=== PATIENT | male | born 1985 | race Caucasian/White ===

== ENCOUNTER → 2019-10-17 | Outpatient (CLI) | payer MEDICAID ==
--- NOTE | 2019-10-17 14:10 | XR ---
EXAMINATION TYPE: XR ankle complete RT DATE OF EXAM: 10/17/2019 COMPARISON: NONE HISTORY: 34 year-old male right ankle injury, swelling, pain TECHNIQUE: 3 views FINDINGS: Os trigonum. Lateral and anterior soft tissue swelling. Subtalar joint align. Small delineation to th e Achilles tendon. No acute fracture, subluxation, or dislocation. Talar dome is intact. IMPRESSION: Lateral and anterior soft tissue swelling. No underlying acute osseous abnormality seen. Consider spr ains of the lateral ligamentous complex.
== END | disposition home or self-care (01) ==
LOC: RADXRYALE 13:47
PROVIDERS: ATTEND Physician Assistant Medical
DX: M79.89 Other specified soft tissue disorders (principal)

== ENCOUNTER 2021-08-15 15:09 | Inpatient (IN) | payer MEDICAID ==
[2021-08-15] MEDS ORDERED: IBUPROFEN 800 MG TAB PO STA (15:27)
[2021-08-15] MEDS ORDERED: ALBUTEROL HFA INHALER INHALATION PRN (16:20)
[2021-08-15 17:02] LABS: Basophils % (A) 0 %; Eosinophils % (A) 0 %; HCT 48.3 % (39.0-53.0); HGB 16.7 gm/dL (13.0-17.5); Lymphocytes # (A) 0.3 k/uL (1.0-4.8); Lymphocytes % (A) 5 %; MCH 31.1 pg (25.0-35.0); MCHC 34.5 g/dL (31.0-37.0); Mean Platelet Volume 7.2; Monocytes # (A) 0.2 k/uL (0-1.0); Monocytes % (A) 3 %; Neutrophils # (A) 5.5 k/uL (1.3-7.7); Neutrophils % (A) 91 %; Platelet Count 179 k/uL (150-450); RBC 5.37 m/uL (4.30-5.90)
--- NOTE | 2021-08-15 17:06 | XR ---
EXAMINATION: XR chest 1V portable DATE AND TIME: 08/15/2021 4:57 PM CLINICAL INDICATION: PHH; Suspected COVID-19 pneumonia TECHNIQUE: AP portable upright COMPARISON: None FINDINGS: The lungs demonstrate a severe pattern of bilateral innumerable ill-defined and predominantly consoli dative added opacities, with a predominance in the periphery. This pattern is consistent with a marke d bilateral airspace filling process, and is radiographically consistent with a clinical diagnosis of atypical pneumonia. Differential diagnostic considerations also include multifocal typical pneumonia and pulmonary edema. The pleural spaces are negative as seen. The cardiac silhouette is not enlarged. The remainder of the mediastinal silhouette is unremarkable. The skeletal structures and soft tissues are negative for acute findings. IMPRESSION: Markedly abnormal lung parenchymal findings.
[2021-08-15] MEDS: DEXAMETHASONE SOD PHOSPHATE 10 MG/ML 1 ML VIAL IVP SCH ×2 (17:07→22:46)
[2021-08-15] MEDS: ACETAMINOPHEN TAB 325 MG TAB PO PRN (17:07)
[2021-08-15 17:16] LABS: ALT 54 U/L (4-49); AST 113 U/L (17-59); African American GFR (CKD) >90 (>60 ml/min/1.73 sqM); Albumin 3.7 g/dL (3.5-5.0); Alkaline Phosphatase 63 U/L (38-126); Anion Gap 11 mmol/L; Blood Urea Nitrogen 19 mg/dL (9-20); Calcium 8.4 mg/dL (8.4-10.2); Carbon Dioxide 23 mmol/L (22-30); Chloride 96 mmol/L (98-107); Glucose 121 mg/dL (74-99); Non-African American GFR(CKD) >90 (>60 ml/min/1.73 sqM); Potassium 3.9 mmol/L (3.5-5.1); Sodium 130 mmol/L (137-145); Total Bilirubin 0.5 mg/dL (0.2-1.3); Total Protein 7.1 g/dL (6.3-8.2)
[2021-08-15 17:19] LABS: INR 0.9 (<1.2); Partial Thromboplastin Time 27.8 sec (22.0-30.0); Prothrombin Time 10.2 sec (9.0-12.0)
[2021-08-15 17:25] LABS: LDH 2508 U/L (313-618)
[2021-08-15 17:42] LABS: C Reactive Protein 20.9 mg/dL (<1.0)
[2021-08-15] MEDS ORDERED: ONDANSETRON 4 MG/2 ML VIAL IVP PRN (18:24)
[2021-08-15] MEDS ORDERED: NALOXONE 0.4 MG/ML 1 ML VIAL IV PRN (18:24)
--- NOTE | 2021-08-15 18:28 | ED ---
General Adult HPI - General Chief complaint: Recheck/Abnormal Lab/Rx Stated complaint: Covid+/Wants antibodies Time Seen by Provider: 08/15/21 16:03 Source: patient, RN notes reviewed, old records reviewed Mode of arrival: wheelchair Limitations: no limitations - History of Present Illness Initial comments: I evaluated the patient and he was placed in a room. Patient presents emergency Department following COVID-19 infection. He tested positive today. He has been having symptoms for multiple days. He endorses shortness of breath is worse with exertion. Endorses nonproductive cough. Endorses a fever. Denies any chest pain, abdominal pain, nausea, vomiting. He was not vaccinated for COVID- 19. Endorses generalized joint pain. His no other acute complaints at this time. Initially thought he'd receive the monoclonal antibodies but was found to be hypoxic upon arrival. - Related Data Home Medications Medication Instructions Recorded Confirmed Testosterone Cypionate 200 mg IM Q14D 08/15/21 08/15/21 [Depo-Testosterone] Allergies Allergy/AdvReac Type Severity Reaction Status Date / Time No Known Allergies Allergy Verified 08/15/21 17:15 Review of Systems ROS Statement: Those systems with pertinent positive or pertinent negative responses have been documented in the HPI. Review of Systems: CONST: Denies fever EYES: Denies blurry vision ENT: Denies nasal congestion C/V: Denies Chest pain RESP: Endorses shortness of breath GI: Denies abdominal pain : Denies dysuria SKIN: Denies rash. MSK: Denies joint pain. NEURO: Denies headache ROS Other: All systems not noted in ROS Statement are negative. Past Medical History Past Medical History: No Reported History History of Any Multi-Drug Resistant Organisms: None Reported Past Surgical History: No Surgical Hx Reported Past Psychological History: No Psychological Hx Reported Smoking Status: Never smoker Past Alcohol Use History: Occasional Past Drug Use History: None Reported General Exam - General Exam Comments Initial Comments: General: Appears in respiratory distress. HEAD: Normal with no signs of head trauma. EYES: PERRLA, EOMI, conjunctiva normal, no discharge. ENT: Hearing grossly intact, normal oropharynx. RESPIRATORY: Coarse breath sounds bilaterally. Increased work of breathing. C/V: Tachycardic with a regular rhythm. S1 and S2 auscultated. Peripheral pulses are 2+ and intact throughout. ABD: Abd is soft, nontender, nondistended EXT: Normal range of motion, no obvious deformity SKIN: No rashes or lesions observed on exposed skin. NEURO: Alert and oriented 4. Limitations: no limitations Course Vital Signs 08/15/21 08/15/21 08/15/21 15:20 17:42 18:26 Temperature 102.2 F H 98.3 F Pulse Rate 117 H 97 Pulse Rate [ Left] Respiratory 24 18 Rate Blood Pressure 134/62 105/72 Blood Pressure [Left Arm] O2 Sat by Pulse 89 L 91 L Oximetry 08/15/21 08/15/21 20:00 20:20 Temperature 97.9 F Pulse Rate Pulse Rate [ 92 Left] Respiratory 19 Rate Blood Pressure Blood Pressure 108/70 [Left Arm] O2 Sat by Pulse 87 L 92 L Oximetry Medical Decision Making - Medical Decision Making Based on the patient's presentation and physical exam, I do believe he has COVID-19 pneumonia resulting in hypoxic respiratory failure requiring supplemental oxygenation. Patient was initially placed on 6 L nasal cannula with some improvement in his hypoxia into the mid 80%'s. He was then placed on high flow nasal cannula with improvement of his hypoxia into the low 90%'s. He was manually pronated in bed. Covid labs will be obtained. He'll be connected to continuous cardiac monitoring with continuous pulse oximetry. Isolation precautions were placed. Patient will be admitted to the hospital. He was in a greement this plan. He'll be started on 3 times a day Decadron as well as albuterol breathing treatments. Laboratory studies were remarkable for a mildly elevated d-dimer to 0.96. Patient has a mild hyponatremia of 130 and hypochloremia of 96. LDH is elevated to 2500. Troponin is negative. Covid swab is positive. Patient's chest x-ray reveals diffuse multifocal pneumonia EKG showed normal sinus rhythm without any signs of acute ischemia. On reevaluation, patient was feeling proved somewhat. He will be admitted to the hospital. He was in agreement this plan. Saturations remained in the low 90% on high flow nasal cannula. I consulted infectious disease as well as pulmonology to evaluate the patient tomorrow, I spoke with the admitting team [facility] who accepted the patient. Patient was therefore admitted to a telemetry bed in serious condition. She will attempt to administer a first-time dose of remdesivir. - Lab Data Result diagrams: 08/15/21 16:52 08/15/21 16:52 Lab Results 08/15/21 08/15/21 08/15/21 Range/Units 16:52 16:52 16:52 WBC 6.0 (3.8-10.6) k/uL RBC 5.37 (4.30-5.90) m/uL Hgb 16.7 (13.0-17.5) gm/dL Hct 48.3 (39.0-53.0) % MCV 90.0 (80.0-100.0) fL MCH 31.1 (25.0-35.0) pg MCHC 34.5 (31.0-37.0) g/dL RDW 13.0 (11.5-15.5) % Plt Count 179 (150-450) k/uL MPV 7.2 Neutrophils % 91 % Lymphocytes % 5 % Monocytes % 3 % Eosinophils % 0 % Basophils % 0 % Neutrophils # 5.5 (1.3-7.7) k/uL Lymphocytes # 0.3 L (1.0-4.8) k/uL Monocytes # 0.2 (0-1.0) k/uL Eosinophils # 0.0 (0-0.7) k/uL Basophils # 0.0 (0-0.2) k/uL Manual Slide Review Performed PT 10.2 (9.0-12.0) sec INR 0.9 (<1.2) APTT 27.8 (22.0-30.0) sec D-Dimer 0.96 H (<0.60) mg/L FEU Sodium 130 L (137-145) mmol/L Potassium 3.9 (3.5-5.1) mmol/L Chloride 96 L (98-107) mmol/L Carbon Dioxide 23 (22-30) mmol/L Anion Gap 11 mmol/L BUN 19 (9-20) mg/dL Creatinine 1.01 (0.66-1.25) mg/dL Est GFR (CKD-EPI)AfAm >90 (>60 ml/min/1.73 sqM) Est GFR (CKD-EPI)NonAf >90 (>60 ml/min/1.73 sqM) Glucose 121 H (74-99) mg/dL Plasma Lactic Acid Anthony (0.7-2.0) mmol/L Calcium 8.4 (8.4-10.2) mg/dL Magnesium 2.0 (1.6-2.3) mg/dL Total Bilirubin 0.5 (0.2-1.3) mg/dL AST 113 H (17-59) U/L ALT 54 H (4-49) U/L Alkaline Phosphatase 63 (38-126) U/L Lactate Dehydrogenase 2508 H (313-618) U/L Troponin I (0.000-0.034) ng/mL C-Reactive Protein 20.9 H (<1.0) mg/dL Total Protein 7.1 (6.3-8.2) g/dL Albumin 3.7 (3.5-5.0) g/dL Coronavirus (PCR) (Not Detectd) 08/15/21 08/15/21 08/15/21 Range/Units 16:52 16:52 16:52 WBC (3.8-10.6) k/uL RBC (4.30-5.90) m/uL Hgb (13.0-17.5) gm/dL Hct (39.0-53.0) % MCV (80.0-100.0) fL MCH (25.0-35.0) pg MCHC (31.0-37.0) g/dL RDW (11.5-15.5) % Plt Count (150-450) k/uL MPV Neutrophils % % Lymphocytes % % Monocytes % % Eosinophils % % Basophils % % Neutrophils # (1.3-7.7) k/uL Lymphocytes # (1.0-4.8) k/uL Monocytes # (0-1.0) k/uL Eosinophils # (0-0.7) k/uL Basophils # (0-0.2) k/uL Manual Slide Review PT (9.0-12.0) sec INR (<1.2) APTT (22.0-30.0) sec D-Dimer (<0.60) mg/L FEU Sodium (137-145) mmol/L Potassium (3.5-5.1) mmol/L Chloride (98-107) mmol/L Carbon Dioxide (22-30) mmol/L Anion Gap mmol/L BUN (9-20) mg/dL Creatinine (0.66-1.25) mg/dL Est GFR (CKD-EPI)AfAm (>60 ml/min/1.73 sqM) Est GFR (CKD-EPI)NonAf (>60 ml/min/1.73 sqM) Glucose (74-99) mg/dL Plasma Lactic Acid Anthony 1.0 (0.7-2.0) mmol/L Calcium (8.4-10.2) mg/dL Magnesium (1.6-2.3) mg/dL Total Bilirubin (0.2-1.3) mg/dL AST (17-59) U/L ALT (4-49) U/L Alkaline Phosphatase (38-126) U/L Lactate Dehydrogenase (313-618) U/L Troponin I <0.012 (0.000-0.034) ng/mL C-Reactive Protein (<1.0) mg/dL Total Protein (6.3-8.2) g/dL Albumin (3.5-5.0) g/dL Coronavirus (PCR) Detected A (Not Detectd) - EKG Data -: EKG Interpreted by Me EKG Comments: 12-lead Electrocardiogram Interpretation Note EKG was reviewed and interpreted by myself. 12-lead ECG performed at 1657 is interpreted by me as revealing normal sinus rhythm at a rate of 99 beats per minute. [place] is normal. OR interval is 142 ms, QRS duration is 90 ms, QTc is 438 ms.. There were no ST or T wave abnormalities to suggest myocardial ischemia or injury. R wave progression across the precordium was satisfactory. By my interpretation this EKG is non-diagnostic for acute ischemia. Critical Care Time Critical Care Time: Yes Total Critical Care Time: 30 Critical Care Time: Upon my evaluation, this patient had a high probability of imminent or life- threatening deterioration due to acute hypoxic respiratory failure requiring supplemental oxygenation secondary to COVID-19 pneumonia, which required my direct attention, intervention, and personal management. I have personally provided 30 minutes of critical care time exclusive of time spent on separately billable procedures. Time includes review of laboratory data, radiology results, discussion with consultants, and monitoring for potential decompensation. Interventions were performed as documented in my note. Disposition Clinical Impression: Pneumonia due to COVID-19 virus, Acute respiratory failure with hypoxia, Febrile illness Disposition: ADMITTED IP TO THIS HOSP Condition: Serious Is patient prescribed a controlled substance at d/c from ED?: No
[2021-08-15] MEDS ORDERED: REMDESIVIR 200 MG in SODIUM CHLORIDE 0.9% 250 ML IVPB ONE (18:30)
[2021-08-15] MEDS: ALBUTEROL HFA INHALER INHALATION SCH (20:16)
[2021-08-16] MEDS ORDERED: SODIUM CHLORIDE 0.65% NASAL SPRAY 44 ML BTL NASAL PRN (07:49)
[2021-08-16] MEDS: ALBUTEROL HFA INHALER INHALATION SCH ×4 (08:20→21:02)
[2021-08-16] MEDS: ASCORBIC ACID 500 MG TAB PO SCH (08:36)
[2021-08-16] MEDS: ZINC SULFATE 220 MG CAP PO SCH (08:36)
[2021-08-16] MEDS: ACETAMINOPHEN TAB 325 MG TAB PO PRN ×2 (08:36→20:24)
[2021-08-16] MEDS ORDERED: ENOXAPARIN 40 MG/0.4 ML SYRINGE SQ SCH (09:00)
[2021-08-16 09:09] LABS: African American GFR (CKD) >90 (>60 ml/min/1.73 sqM); Anion Gap 15 mmol/L; Blood Urea Nitrogen 23 mg/dL (9-20); Calcium 8.7 mg/dL (8.4-10.2); Carbon Dioxide 21 mmol/L (22-30); Chloride 98 mmol/L (98-107); Glucose 161 mg/dL (74-99); Magnesium 2.2 mg/dL (1.6-2.3); Non-African American GFR(CKD) >90 (>60 ml/min/1.73 sqM); Potassium 4.2 mmol/L (3.5-5.1); Sodium 134 mmol/L (137-145)
[2021-08-16 10:09] LABS: Basophils % (A) 0 %; Eosinophils % (A) 0 %; HCT 50.9 % (39.0-53.0); HGB 17.6 gm/dL (13.0-17.5); Lymphocytes # (A) 0.2 k/uL (1.0-4.8); Lymphocytes % (A) 4 %; MCH 31.8 pg (25.0-35.0); MCHC 34.6 g/dL (31.0-37.0); Mean Platelet Volume 7.7; Monocytes # (A) 0.2 k/uL (0-1.0); Monocytes % (A) 3 %; Neutrophils # (A) 5.4 k/uL (1.3-7.7); Neutrophils % (A) 92 %; Platelet Count 208 k/uL (150-450); RBC 5.54 m/uL (4.30-5.90); RDW 13.1 % (11.5-15.5); WBC 5.8 k/uL (3.8-10.6)
[2021-08-16] MEDS: DEXAMETHASONE SOD PHOSPHATE 10 MG/ML 1 ML VIAL IVP SCH (12:26)
[2021-08-16] MEDS: FLUTICASONE 50MCG/SPRAY NASAL 16GM EA NOSTRIL SCH (12:27)
--- NOTE | 2021-08-16 14:20 | P.HPIM ---
History of Present Illness Patient is a 36-year-old male came in with comments of shortness of breath found to be severely hypoxic and the patient is presently on 15 L of oxygen. Patient was having nonpleuritic cough for his symptoms has been going on for about 8 days patient was having episodes of fever as well patient had fever of 102 last night patient was bit hyponatremic patient's d-dimer is 0.96 a chest x-ray showed extensive bilateral infiltrates patient does have elevated inflammatory markers. Patient is presently on Decadron. Patient is obese REVIEW OF SYSTEMS: CONSTITUTIONAL: No fever, no malaise, no fatigue. HEENT: No recent visual problems or hearing problems. Denied any sore throat. CARDIOVASCULAR: No chest pain, orthopnea, PND, no palpitations, no syncope. PULMONARY: no hemoptysis. GASTROINTESTINAL: No diarrhea, no nausea, no vomiting, no abdominal pain. NEUROLOGICAL: No headaches, no weakness, no numbness. HEMATOLOGICAL: Denies any bleeding or petechiae. GENITOURINARY: Denies any burning micturition, frequency, or urgency. MUSCULOSKELETAL/RHEUMATOLOGICAL: Denies any joint pain, swelling, or any muscle pain. ENDOCRINE: Denies any polyuria or polydipsia. The rest of the 14-point review of systems is negative. PHYSICAL EXAMINATION: GENERAL: The patient is alert and oriented x3, not in any acute distress. Obese HEENT: Pupils are round and equally reacting to light. EOMI. No scleral icterus. No conjunctival pallor. Normocephalic, atraumatic. No pharyngeal erythema. No thyromegaly. CARDIOVASCULAR: S1 and S2 present. No murmurs, rubs, or gallops. PULMONARY: Bilateral rhonchi fairly good air entry into lung pace ABDOMEN: Soft, nontender, nondistended, normoactive bowel sounds. No palpable organomegaly. MUSCULOSKELETAL: No joint swelling or deformity. EXTREMITIES: No cyanosis, clubbing, or pedal edema. NEUROLOGICAL: Gross neurological examination did not reveal any focal deficits. SKIN: No rashes. 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 -Hypovolemic hyponatremia patient was started on IV fluids -Acute hypoxic respiratory failure secondary to Covid 19 DVT prophylaxis: Lovenox Past Medical History Past Medical History: No Reported History History of Any Multi-Drug Resistant Organisms: None Reported Past Surgical History: No Surgical Hx Reported Past Anesthesia/Blood Transfusion Reactions: No Reported Reaction Past Psychological History: No Psychological Hx Reported Smoking Status: Never smoker Past Alcohol Use History: Occasional Past Drug Use History: None Reported Medications and Allergies Home Medications Medication Instructions Recorded Confirmed Type Testosterone Cypionate 200 mg IM Q14D 08/15/21 08/15/21 History [Depo-Testosterone] Allergies Allergy/AdvReac Type Severity Reaction Status Date / Time No Known Allergies Allergy Verified 08/15/21 17:15 Physical Exam Vitals: Vital Signs Temp Pulse Pulse Resp BP BP Pulse Ox 08/16/21 08:32 97.9 F 91 18 145/73 88 L 08/16/21 08:00 20 08/16/21 06:10 98.3 F 89 24 129/69 91 L 08/16/21 02:00 98.3 F 88 20 151/49 89 L 08/15/21 21:56 93 L 08/15/21 21:42 90 L 08/15/21 20:20 92 L 08/15/21 20:00 97.9 F 92 19 108/70 87 L 08/15/21 18:26 98.3 F 08/15/21 17:42 97 18 105/72 91 L 08/15/21 15:20 102.2 F H 117 H 24 134/62 89 L Intake and Output 08/15/21 08/16/21 08/16/21 22:59 06:59 14:59 Other: # Voids 1 Weight 136.078 kg Results CBC & Chem 7: 08/16/21 08:32 08/16/21 08:31 Labs: Abnormal Lab Results - Last 24 Hours (Table) 08/15/21 08/15/21 08/15/21 Range/Units 16:52 16:52 16:52 Hgb (13.0-17.5) gm/dL Lymphocytes # 0.3 L (1.0-4.8) k/uL D-Dimer 0.96 H (<0.60) mg/L FEU Sodium 130 L (137-145) mmol/L Chloride 96 L (98-107) mmol/L Carbon Dioxide (22-30) mmol/L BUN (9-20) mg/dL Glucose 121 H (74-99) mg/dL Ferritin 3518.0 H (22.0-322.0) ng/mL AST 113 H (17-59) U/L ALT 54 H (4-49) U/L Lactate Dehydrogenase 2508 H (313-618) U/L C-Reactive Protein 20.9 H (<1.0) mg/dL Procalcitonin (0.02-0.09) ng/mL Coronavirus (PCR) (Not Detectd) 08/15/21 08/15/21 08/16/21 Range/Units 16:52 16:52 08:31 Hgb (13.0-17.5) gm/dL Lymphocytes # (1.0-4.8) k/uL D-Dimer (<0.60) mg/L FEU Sodium 134 L (137-145) mmol/L Chloride (98-107) mmol/L Carbon Dioxide 21 L (22-30) mmol/L BUN 23 H (9-20) mg/dL Glucose 161 H (74-99) mg/dL Ferritin (22.0-322.0) ng/mL AST (17-59) U/L ALT (4-49) U/L Lactate Dehydrogenase (313-618) U/L C-Reactive Protein (<1.0) mg/dL Procalcitonin 1.88 H (0.02-0.09) ng/mL Coronavirus (PCR) Detected A (Not Detectd) 08/16/21 Range/Units 08:32 Hgb 17.6 H (13.0-17.5) gm/dL Lymphocytes # 0.2 L (1.0-4.8) k/uL D-Dimer (<0.60) mg/L FEU Sodium (137-145) mmol/L Chloride (98-107) mmol/L Carbon Dioxide (22-30) mmol/L BUN (9-20) mg/dL Glucose (74-99) mg/dL Ferritin (22.0-322.0) ng/mL AST (17-59) U/L ALT (4-49) U/L Lactate Dehydrogenase (313-618) U/L C-Reactive Protein (<1.0) mg/dL Procalcitonin (0.02-0.09) ng/mL Coronavirus (PCR) (Not Detectd) Thrombosis Risk Factor Assmnt - Choose All That Apply Any of the Below Risk Factors Present?: Yes Each Factor Represents 1 point: Serious lung disease incl. pneumonia (< 1month) Other Risk Factors: No Other congenital or acquired thrombophilia - If yes, enter type in comment: No Thrombosis Risk Factor Assessment Total Risk Factor Score: 1 Thrombosis Risk Factor Assessment Level: Low Risk
--- NOTE | 2021-08-16 14:26 | P.CNPUL ---
History of Present Illness Consult date: 08/16/21 Requesting physician: Jennifer Garduno Reason for consult: dyspnea, cough, hypoxemia, pneumonia, abnormal CXR/CT Chief complaint: Shortness of breath, and cough. History of present illness: Pulmonary/critical care consultation dated 08/16/2021. 36-year-old male, who presents to the emergency department, on August 15, complaining of shortness of breath. The patient apparently tested positive for coronavirus infection recently. Patient has been having symptoms so far about 8-9 days. His complaints included fever, chills, cough, shortness of breath, chest congestion, and generally just not feeling well, with significant weakness, and muscle aches. The patient has not been vaccinated against coronavirus. The patient initially came in because he thought maybe he could get the monoclonal antibodies, be discharged home, he was found to be quite hypoxemic. Currently, the patient's on a nonrebreather mask, and 15 L high flow nasal cannula. The patient is feeling reasonably good at this time, but is very short of breath with any activity. He denies all other medical problems, and he does not smoke cigarettes. White count 5.8, hemoglobin 7.6, hematocrit 50.9, and platelet count 208,000. D-dimer is 0.96. PT/INR, and PTT are all normal. Sodium 134, potassium 4.2, chloride 98, CO2 21, anion gap 15, BUN 23, and creatinine 0.87. AST 113, ALT 54, ferritin 3518, LDH 2508, troponin negative 3, C-reactive protein 20.9, and pro-calcitonin level was 1.88. Chest x-ray shows diffuse bilateral infiltrates consistent with coronavirus associated pneumonia. Review of Systems REVIEW OF SYSTEMS: CONSTITUTIONAL: Fever, chills, weakness. NEUROLOGIC: [ Negative.] HEENT: [ Negative.] CARDIAC: [Negative.] PULMONARY: Shortness of breath, cough, chest congestion. GI: [Negative.] : [Negative.] RHEUMATOLOGIC: Muscle and joint aches. IMMUNOLOGIC: [ Negative.] ENDOCRINE: [Negative. ] DERMATOLOGIC: [Negative.] Past Medical History Past Medical History: No Reported History History of Any Multi-Drug Resistant Organisms: None Reported Past Surgical History: No Surgical Hx Reported Past Anesthesia/Blood Transfusion Reactions: No Reported Reaction Past Psychological History: No Psychological Hx Reported Smoking Status: Never smoker Past Alcohol Use History: Occasional Past Drug Use History: None Reported Medications and Allergies Home Medications Medication Instructions Recorded Confirmed Type Testosterone Cypionate 200 mg IM Q14D 08/15/21 08/15/21 History [Depo-Testosterone] Allergies Allergy/AdvReac Type Severity Reaction Status Date / Time No Known Allergies Allergy Verified 08/15/21 17:15 Physical Exam Osteopathic Statement: *. No significant issues noted on an osteopathic structural exam other than those noted in the History and Physical/Consult. Vitals: Vital Signs Temp Pulse Pulse Resp BP BP Pulse Ox 08/16/21 08:32 97.9 F 91 18 145/73 88 L 08/16/21 08:00 20 08/16/21 06:10 98.3 F 89 24 129/69 91 L 08/16/21 02:00 98.3 F 88 20 151/49 89 L 08/15/21 21:56 93 L 08/15/21 21:42 90 L 08/15/21 20:20 92 L 08/15/21 20:00 97.9 F 92 19 108/70 87 L 08/15/21 18:26 98.3 F 08/15/21 17:42 97 18 105/72 91 L 08/15/21 15:20 102.2 F H 117 H 24 134/62 89 L Intake and Output 08/15/21 08/16/21 08/16/21 22:59 06:59 14:59 Other: # Voids 1 Weight 136.078 kg Mild conversational dyspnea. Nonrebreather mask and high flow nasal cannula noted. HEENT examination is grossly unremarkable. Neck supple. Full range of motion. No adenopathy thyromegaly or neck vein distention. Cardiovascular examination reveals regular rhythm rate. S1-S2 normal. No S3 or S4. No discernible murmur noted. Heart rate 91 bpm. Lungs reveal coarse bilateral breath sounds. Coarse expiratory rhonchi are noted. No wheezes. Basilar crackles appreciated. Breath sounds equal bilaterally. Abdomen soft bowel sounds are heard. No masses or tenderness. Extremities are intact. No cyanosis clubbing or edema. Skin is without rash or lesion. Neurologic examination is brief but nonfocal. Results - Laboratory Findings CBC and BMP: 08/16/21 08:32 08/16/21 08:31 PT/INR, D-dimer PT 10.2 sec (9.0-12.0) 08/15/21 16:52 INR 0.9 (<1.2) 08/15/21 16:52 D-Dimer 0.96 mg/L FEU (<0.60) H 08/15/21 16:52 Abnormal lab findings: Abnormal Labs 08/15/21 08/15/21 08/15/21 16:52 16:52 16:52 Hgb Lymphocytes # 0.3 L D-Dimer 0.96 H Sodium 130 L Chloride 96 L Carbon Dioxide BUN Glucose 121 H Ferritin 3518.0 H AST 113 H ALT 54 H Lactate Dehydrogenase 2508 H C-Reactive Protein 20.9 H Procalcitonin Coronavirus (PCR) 08/15/21 08/15/21 08/16/21 16:52 16:52 08:31 Hgb Lymphocytes # D-Dimer Sodium 134 L Chloride Carbon Dioxide 21 L BUN 23 H Glucose 161 H Ferritin AST ALT Lactate Dehydrogenase C-Reactive Protein Procalcitonin 1.88 H Coronavirus (PCR) Detected A 08/16/21 08:32 Hgb 17.6 H Lymphocytes # 0.2 L D-Dimer Sodium Chloride Carbon Dioxide BUN Glucose Ferritin AST ALT Lactate Dehydrogenase C-Reactive Protein Procalcitonin Coronavirus (PCR) - Diagnostic Findings Chest x-ray: image reviewed Assessment and Plan Assessment: Acute hypoxemic respiratory failure, secondary to coronavirus associated pneumonia. Elevated inflammatory markers secondary to coronavirus infection. Plan: Plan dated 08/16/2021. The patient is not a candidate for REM. The patient should receive vitamin C, v itamin D3, and zinc. In addition, the patient should receive Lovenox, and Decadron. In addition, because the patient's oxygen requirements have significantly increased, the patient should be on ARABELLA, 4 mg a day for up to 14 days. Additional recommendations and suggestions are forthcoming. Prognosis is guarded. We will continue to follow make recommendations where appropriate. Time with Patient: Greater than 30
[2021-08-16] MEDS: BARICITINIB 2 MG TABLET PO SCH (16:08)
[2021-08-16] MEDS: SODIUM CHLORIDE 0.9% 1,000 ML IV SCH (16:09)
[2021-08-16] MEDS: ENOXAPARIN 40 MG/0.4 ML SYRINGE SQ SCH (20:24)
[2021-08-17] MEDS: ACETAMINOPHEN TAB 325 MG TAB PO PRN (01:53)
[2021-08-17] MEDS: SODIUM CHLORIDE 0.9% 1,000 ML IV SCH ×2 (04:00→17:25)
[2021-08-17] MEDS: DEXAMETHASONE SOD PHOSPHATE 10 MG/ML 1 ML VIAL IVP SCH (08:15)
[2021-08-17] MEDS: ALBUTEROL HFA INHALER INHALATION SCH ×4 (08:39→20:16)
[2021-08-17] MEDS: ZINC SULFATE 220 MG CAP PO SCH (09:12)
[2021-08-17] MEDS: ASCORBIC ACID 500 MG TAB PO SCH (09:12)
[2021-08-17] MEDS: ENOXAPARIN 40 MG/0.4 ML SYRINGE SQ SCH (09:23)
[2021-08-17] MEDS: FLUTICASONE 50MCG/SPRAY NASAL 16GM EA NOSTRIL SCH (09:23)
--- NOTE | 2021-08-17 12:06 | P.CONS ---
History of Present Illness - Reason for Consult Consult date: 08/16/21 Covid 19 pneumonia Requesting physician: Yuniel Macias - Chief Complaint shortness of breath x few days - History of Present Illness History of present illness : Patient is 36-year male presenting to the ER for evaluation of increasing shortness of breath and cough in this patient symptom has been going on for about a week patient initially started with fever about a week ago however since Thursday but this 2 days before presentation to the hospital patient be complaining of increasing shortness of breath on minimal exertion the patient also have a cough which is moderate intensity not bringing up any sputum denies any pleuritic chest pain patient denies having any URI symptom has been complaining of nausea decreased oral intake but no vomiting no abdominal pain did have some diarrhea with the symptom the patient was evaluated by ER physician on arrival to the ER patient did have a fever 102 F patient was hypoxic with O2 sats of 89% on room air patient did have a normal white count with lymphopenia D-dimer was mildly elevated creatinine was normal liver exams are elevated CRP was elevated hercules PCR was detected blood pressure was mildly elevated patient did have a chest x-ray with bilateral infiltrates, patient did receive a dose of remdesivir in the ER has been admitted to hospital infectious disease was consulted for further management Review of system: CONSTITUTIONAL: Positive for weakness along with the fever. EYES: No complaint. ENT: No complaint. RESPIRATORY: As per history of present illness. CARDIOVASCULAR: No complaint. GENITOURINARY: No complaint. GASTROINTESTINAL: As per history of present illness. MUSCULOSKELETAL: No complaint. INTEGUMENTARY: No complaint. PSYCHOLOGIC: No complaint. ENDOCRINE: No complaint. NEUROLOGIC: No complaint. Past medical history : Reviewed, documented below Past surgical history : Reviewed, documented below Social history: Reviewed, documented below Medications: Reviewed, as documented below EXAMINATION: Vital sigans= Reviewed and documented below GENERAL DESCRIPTION: Middle-aged male lying in bed, no distress. No tachypnea or accessory muscle of respiration use. HEENT: Shows Pallor , no scleral icterus. Oral mucous membrane is dry. NECK: Trachea central, no thyromegaly. LUNGS: Unlabored breathing. Coarse breath sounds bilaterally. No wheeze or crackle. HEART: S1, S2, regular rate and rhythm. ABDOMEN: Soft, no tenderness , guarding or rigidity EXTREMITIES: No edema of feet. SKIN: No rash, no masses palpable. NEUROLOGICAL: The patient is awake, alert, oriented x3, mood and affect normal. LABS AND RADIOLOGY: Reviewed results see below Assessment : Patient presented to hospital with increasing shortness of breath cough fever symptom has been going on for more than a week the patient currently will not qualify for remdesivir per [facility] policy which limit remdesivir to 7 days of symptoms only, patient did have a extensive pneumonia and high risk of respiratory failure and apparently the patient is sick enough to qualify for Baricitinab , clinical suspicion low for secondary bacterial pneumonia Plan: 1-patient to continue with the dexamethasone Lovenox zinc ascorbic acid 2-droplet isolation and respiratory support 3-Baricitinab 14 day course while inpatient We will follow on clinical condition and cultures to further adjust medication if needed Thank you for this consultation we will follow the patient along with you Past Medical History Past Medical History: No Reported History History of Any Multi-Drug Resistant Organisms: None Reported Past Surgical History: No Surgical Hx Reported Past Anesthesia/Blood Transfusion Reactions: No Reported Reaction Past Psychological History: No Psychological Hx Reported Smoking Status: Never smoker Past Alcohol Use History: Occasional Past Drug Use History: None Reported Medications and Allergies Home Medications Medication Instructions Recorded Confirmed Type Testosterone Cypionate 200 mg IM Q14D 08/15/21 08/15/21 History [Depo-Testosterone] Allergies Allergy/AdvReac Type Severity Reaction Status Date / Time No Known Allergies Allergy Verified 08/15/21 17:15 Physical Exam Vitals: Vital Signs Temp Pulse Resp BP Pulse Ox 08/17/21 11:51 91 L 08/17/21 10:33 98.5 F 84 24 122/75 90 L 08/17/21 08:39 91 L 08/17/21 06:00 98.5 F 80 20 122/71 91 L 08/17/21 05:50 91 L 08/17/21 01:58 88 L 08/17/21 01:47 99.5 F 87 20 117/61 91 L 08/16/21 22:27 100.4 F H 95 20 165/70 89 L 08/16/21 22:17 94 L 08/16/21 21:02 90 L 08/16/21 20:00 90 20 93 L 08/16/21 18:30 88 142/89 88 L 08/16/21 18:17 100.9 F H 95 20 181/72 85 L 08/16/21 14:44 98.7 F 92 17 164/79 87 L Intake and Output 08/16/21 08/17/21 08/17/21 22:59 06:59 14:59 Output Total 800 Balance -800 Output: Urine 800 Other: Voiding Method Bedside Commode Urinal # Voids 2 # Bowel Movements 1 Results CBC & Chem 7: 08/16/21 08:32 08/16/21 08:31 Labs: Abnormal Lab Results - Last 24 Hours (Table) 08/15/21 Range/Units 16:52 Ferritin 3518.0 H (22.0-322.0) ng/mL Microbiology - Last 24 Hours (Table) 08/15/21 16:52 Blood Culture - Preliminary Blood No Growth after 24 hours 08/15/21 16:52 Blood Culture - Preliminary Blood No Growth after 24 hours
--- NOTE | 2021-08-17 14:17 | P.PN ---
Subjective Progress Note Date: 08/17/21 Principal diagnosis: Acute hypoxemic respiratory failure secondary to coronavirus associated pneumonia. Pulmonary/critical care consultation dated 08/16/2021. 36-year-old male, who presents to the emergency department, on August 15, complaining of shortness of breath. The patient apparently tested positive for coronavirus infection recently. Patient has been having symptoms so far about 8-9 days. His complaints included fever, chills, cough, shortness of breath, chest congestion, and generally just not feeling well, with significant weakness, and muscle aches. The patient has not been vaccinated against coronavirus. The patient initially came in because he thought maybe he could get the monoclonal antibodies, be discharged home, he was found to be quite hypoxemic. Currently, the patient's on a nonrebreather mask, and 15 L high flow nasal cannula. The patient is feeling reasonably good at this time, but is very short of breath with any activity. He denies all other medical problems, and he does not smoke cigarettes. White count 5.8, hemoglobin 7.6, hematocrit 50.9, and platelet count 208,000. D-dimer is 0.96. PT/INR, and PTT are all normal. Sodium 134, potassium 4.2, chloride 98, CO2 21, anion gap 15, BUN 23, and creatinine 0.87. AST 113, ALT 54, ferritin 3518, LDH 2508, troponin negative 3, C-reactive protein 20.9, and pro-calcitonin level was 1.88. Chest x-ray shows diffuse bilateral infiltrates consistent with coronavirus associated pne umonia. Progress note dated 08/17/2021. 36-year-old non-vaccinated male, admitted, through the emergency department on August 15, for acute hypoxemic respiratory failure secondary to coronavirus as sociated pneumonia. Currently, the patient is on AIRVO, at 60 L/m and 90%, as well as a nonrebreather mask. The patient is scheduled to have a CT angiogram to rule out PE. Currently, laying on his left side. He seems to have a pretty good attitude, and is pretty positive. No new labs today. The labs from the fourth and the fifth are reviewed. The patient is currently on albuterol inhaler, vitamin C, Decadron, Lovenox, vitamin D3, and zinc. In addition, the patient is on ARABELLA. Objective - Vital Signs Vital signs: Vital Signs Temp 98.5 F 08/17/21 10:33 Pulse 84 08/17/21 10:33 Resp 24 08/17/21 10:33 BP 122/75 08/17/21 10:33 Pulse Ox 91 L 08/17/21 11:51 Intake & Output 08/16/21 08/17/21 08/17/21 18:59 06:59 18:59 Output Total 800 Balance -800 Output: Urine 800 Other: Voiding Method Bedside Commode Urinal # Voids 2 # Bowel Movements 1 - Exam Mild conversational dyspnea. Currently on AIRVO, and a nonrebreather mask. Saturations are in the high 80s. HEENT examination is grossly unremarkable. Neck supple. Full range of motion. No adenopathy thyromegaly or neck vein distention. Cardiovascular examination reveals regular rhythm rate. S1-S2 normal. No S3 or S4. No discernible murmur noted. Heart rate 84 bpm. Lungs reveal coarse bilateral breath sounds. Coarse expiratory rhonchi are noted. No wheezes. Basilar crackles appreciated. Breath sounds equal bilaterally. Abdomen soft bowel sounds are heard. No masses or tenderness. Extremities are intact. No cyanosis clubbing or edema. Skin is without rash or lesion. Neurologic examination is brief but nonfocal. - Labs CBC & Chem 7: 08/16/21 08:32 08/16/21 08:31 Labs: Microbiology - Last 24 Hours (Table) 08/15/21 16:52 Blood Culture - Preliminary Blood No Growth after 24 hours 08/15/21 16:52 Blood Culture - Preliminary Blood No Growth after 24 hours Assessment and Plan Assessment: Acute hypoxemic respiratory failure, secondary to coronavirus associated pneumonia. Elevated inflammatory markers secondary to coronavirus infection. Plan: Plan dated 08/16/2021. The patient is not a candidate for REM. The patient should receive vitamin C, vitamin D3, and zinc. In addition, the patient should receive Lovenox, and Decadron. In addition, because the patient's oxygen requirements have significantly increased, the patient should be on ARABELLA, 4 mg a day for up to 14 days. Additional recommendations and suggestions are forthcoming. Prognosis is guarded. We will continue to follow make recommendations where appropriate. Plan dated 08/17/2021. The patient is currently now on AIRVO at 60 L/m with an FiO2 of 90%. He is also wearing a nonrebreather mask. We schedule him for a CT angiogram to rule out pulmonary embolism. The patient's on appropriate medications including steroids, Lovenox, and vitamins. In addition, the patient is on ARABELLA. We will continue to follow and make recommendations where appropriate. We did alert the ICU charge nurse about the patient, just in case he worsens and has to move. Prognosis is guarded. Time with Patient: Less than 30
[2021-08-17] MEDS: BARICITINIB 2 MG TABLET PO SCH (14:35)
--- NOTE | 2021-08-17 17:18 | P.PN ---
Subjective Progress Note Date: 08/17/21 Principal diagnosis: COVID-19 pneumonia Mr. Carlisle is a 28-year-old male with no significant past medical history admitted for COVID-19 pneumonia. He is not vaccinated 08/17/2021-patient seen and examined at the bedside. He is currently on Airvo at 6 L/m saturating at 90%. Patient states that his shortness of breath still continues to be the same. On reviewing her vitals T-max of 99.8 around 2:00 this afternoon, heart rate 68, respiratory rate 26 blood pressure 117 was 62. Reviewed labs from yesterday showing sodium 134, potassium 4.0, chloride 98, bicarbonate 21, creatinine 23, creatinine 0.87. Troponin less than 0.0123. Medications reviewed Active Medications Acetaminophen (Acetaminophen Tab 325 Mg Tab) 650 mg PO Q4HR PRN PRN Reason: Fever>101 Last Admin: 08/17/21 01:53 Dose: 650 mg Documented by: Albuterol Sulfate (Albuterol Hfa Inhaler) 4 puff INHALATION RT-QID [facility] Last Admin: 08/17/21 16:00 Dose: 4 puff Documented by: Ascorbic Acid (Ascorbic Acid 500 Mg Tab) 1,000 mg PO DAILY [facility] Last Admin: 08/17/21 09:12 Dose: 1,000 mg Documented by: Baricitinib (Baricitinib 2 Mg Tablet) 4 mg PO DAILY@1400 [facility] Stop: 08/29/21 14:01 Last Admin: 08/17/21 14:35 Dose: 4 mg Documented by: Dexamethasone Sodium Phosphate (Dexamethasone Sod Phosphate 10 Mg/Ml 1 Ml Vial) 6 mg IVP DAILY [facility] Last Admin: 08/17/21 08:15 Dose: 6 mg Documented by: Enoxaparin Sodium (Enoxaparin 40 Mg/0.4 Ml Syringe) 40 mg SQ DAILY [facility] Fluticasone Propionate (Fluticasone 50mcg/[place] Nasal 16gm) 2 spray EA NOSTRIL DAILY [facility] Last Admin: 08/17/21 09:23 Dose: Not Given Documented by: Sodium Chloride (Saline 0.9%) 1,000 mls @ 75 mls/hr IV .[id number] [facility] Last Admin: 08/17/21 04:00 Dose: 75 mls/hr Documented by: Naloxone HCl (Naloxone 0.4 Mg/Ml 1 Ml Vial) 0.2 mg IV Q2M PRN PRN Reason: Opioid Reversal Ondansetron HCl (Ondansetron 4 Mg/2 Ml Vial) 4 mg IVP Q8HR PRN PRN Reason: Nausea And Vomiting Sodium Chloride (Sodium Chloride 0.65% Nasal [place] 44 Ml Btl) 2 spray NASAL QID PRN PRN Reason: Dry Nasal Passages Last Admin: 08/16/21 12:27 Dose: 2 spray Documented by: Zinc Sulfate (Zinc Sulfate 220 Mg Cap) 220 mg PO DAILY [facility] Last Admin: 08/17/21 09:12 Dose: 220 mg Documented by: Objective - Vital Signs Vital signs: Vital Signs Temp 99.8 F H 08/17/21 14:00 Pulse 68 08/17/21 14:00 Resp 26 H 08/17/21 14:00 BP 117/62 08/17/21 14:00 Pulse Ox 91 L 08/17/21 16:02 Intake & Output 08/16/21 08/17/21 08/17/21 18:59 06:59 18:59 Output Total 800 Balance -800 Output: Urine 800 Other: Voiding Method Bedside Commode Urinal # Voids 2 # Bowel Movements 1 - Exam PHYSICAL EXAMINATION: GENERAL: The patient is alert and oriented x3, not in any acute distress. Obese HEENT: Pupils are round and equally reacting to light. EOMI. No scleral icterus. No conjunctival pallor. Mild conjunctival hemorrhage in the right eye CARDIOVASCULAR: S1 and S2 present. No murmurs, rubs, or gallops. PULMONARY: Bilateral coarse rhonchi in all lung pace. ABDOMEN: Soft, nontender, nondistended, normoactive bowel sounds. No palpable organomegaly. MUSCULOSKELETAL: No joint swelling or deformity. EXTREMITIES: No cyanosis, clubbing, or pedal edema. NEUROLOGICAL: Gross neurological examination did not reveal any focal deficits. SKIN: No rashes. - Labs CBC & Chem 7: 08/16/21 08:32 08/16/21 08:31 Labs: Microbiology - Last 24 Hours (Table) 08/15/21 16:52 Blood Culture - Preliminary Blood No Growth after 24 hours 08/15/21 16:52 Blood Culture - Preliminary Blood No Growth after 24 hours Assessment and Plan Assessment: ASSESSMENT Acute hypoxic respiratory failure secondary to COVID-19 pneumonia Bilateral pneumonia Hypovolemic hyponatremia PLAN: Continue Airvo 60 L/m to maintain oxygen saturations above 90%. Patient to be continued on steroids, Lovenox, multivitamins, breathing treatments. He has been started on Baricitinib by pulmonary. ID and pulmonary on board and following the patient closely. Will repeat a.m. labs and inflammatory markers. Overall prognosis is guarded
--- NOTE | 2021-08-17 18:57 | PN ---
PROGRESS NOTE DATE OF SERVICE: 08/17/2021 REASON FOR FOLLOWUP: COVID-19 pneumonia. INTERVAL HISTORY: The patient is afebrile. The patient is still complaining of shortness of breath. He denies any chest pain. Did have a cough, not bringing up any sputum. No nausea or vomiting. No abdominal pain, no diarrhea. PHYSICAL EXAMINATION: Blood pressure 116/62 with a pulse of 60, temperature 98.5. He is 90% on 90% FiO2. General description is a middle-aged male lying in bed in no distress. Respiratory system: Unlabored breathing, decreased intensity of breath sounds. No wheeze. Heart S1, S2. Regular rate and rhythm. Abdomen soft, no tenderness. LABS: No new labs have been obtained today. DIAGNOSTIC IMPRESSION AND PLAN: Patient with acute COVID-19 pneumonia in this patient with acute respiratory failure, has been started on baricitinib along with dexamethasone, Lovenox, zinc and ascorbic acid and respiratory support and monitor his clinical course closely. MMODL / IJN: [id number] /
[2021-08-18] MEDS: SODIUM CHLORIDE 0.9% 1,000 ML IV SCH ×2 (05:41→16:07)
[2021-08-18] MEDS: ALBUTEROL HFA INHALER INHALATION SCH ×4 (08:26→20:22)
[2021-08-18] MEDS: ASCORBIC ACID 500 MG TAB PO SCH (09:22)
[2021-08-18] MEDS: ZINC SULFATE 220 MG CAP PO SCH (09:22)
[2021-08-18] MEDS: ENOXAPARIN 40 MG/0.4 ML SYRINGE SQ SCH (09:23)
[2021-08-18] MEDS: FLUTICASONE 50MCG/SPRAY NASAL 16GM EA NOSTRIL SCH (09:23)
[2021-08-18] MEDS: DEXAMETHASONE SOD PHOSPHATE 10 MG/ML 1 ML VIAL IVP SCH (09:29)
--- NOTE | 2021-08-18 12:33 | XR ---
EXAMINATION TYPE: XR chest 1V portable DATE OF EXAM: 08/18/2021 COMPARISON: 08/15/2021 HISTORY: Shortness of breath TECHNIQUE: Single frontal view of the chest is obtained. FINDINGS: Multifocal bilateral infiltrates including alveolar and interstitial process stable. No pl eural effusion or pneumothorax. Heart enlarged. Osseous structures. IMPRESSION: Stable diffuse bilateral airspace disease
[2021-08-18 12:42] LABS: Basophils # (A) 0.01 X 10*3/uL (0.00-0.10); Basophils % (A) 0.1 %; Eosinophils # (A) 0 X 10*3/uL (0.04-0.35); Eosinophils % (A) 0 %; HCT 44.6 % (39.6-50.0); HGB 16.4 g/dL (13.0-17.0); Lymphocytes # (A) 0.43 X 10*3/uL (0.90-5.00); Lymphocytes % (A) 4.6 %; MCH 33.7 pg (27.0-32.0); MCHC 36.8 g/dL (32.0-37.0); MCV 91.8 fL (80.0-97.0); Mean Platelet Volume 9.1 fL (9.5-12.2); Monocytes # (A) 0.38 X 10*3/uL (0.20-1.00); Monocytes % (A) 4.1 %; Neutrophils # (A) 8.35 X 10*3/uL (1.80-7.70); Platelet Count 305 X 10*3/uL (140-440); RBC 4.86 X 10*6/uL (4.40-5.60); RDW 13.2 % (11.5-14.5); WBC 9.28 X 10*3/uL (4.50-10.00)
[2021-08-18 12:44] LABS: African American GFR (CKD) 139.3 (60.0-200.0); Albumin 3.4 g/dL (3.8-4.9); Albumin/Globulin Ratio 1.19 (1.60-3.17); BUN/Creat Ratio 29.87 Ratio (12.00-20.00); Blood Urea Nitrogen 20.7 mg/dL (9.0-27.0); Calcium 8.1 mg/dL (8.7-10.3); Carbon Dioxide 22.1 mmol/L (21.6-31.8); Globulin 2.9 g/dL (1.6-3.3); Non-African American GFR(CKD) 120.2 (60.0-200.0); Potassium 4.3 mmol/L (3.5-5.5); Total Bilirubin 0.5 mg/dL (0.30-1.20); Total Protein 6.3 g/dL (6.2-8.2)
--- NOTE | 2021-08-18 13:25 | US ---
EXAMINATION TYPE: US venous doppler duplex LE DATE OF EXAM: 08/18/2021 1:15 PM COMPARISON: NONE CLINICAL HISTORY: elevated d-dimer. Exam done portable SIDE PERFORMED: Bilateral TECHNIQUE: The lower extremity deep venous system is examined utilizing real time linear array sonog brian with graded compression, doppler sonography and color-flow sonography. VESSELS IMAGED: Common Femoral Vein Deep Femoral Vein Greater Saphenous Vein * Femoral Vein Popliteal Vein Small Saphenous Vein * Proximal Calf Veins (* superficial vessels) Right Leg: Appears negative for DVT Left Leg: Appears negative for DVT IMPRESSION: Grayscale, color doppler, spectral doppler imaging performed of the deep veins of the lo wer extremities. There is normal flow, compressibility, vascular waveforms.
[2021-08-18 13:45] LABS: C Reactive Protein 5.4 mg/dL (0.00-0.80)
--- NOTE | 2021-08-18 14:21 | P.PN ---
Subjective Progress Note Date: 08/18/21 Principal diagnosis: Acute hypoxemic respiratory failure secondary to coronavirus associated pneumonia. Pulmonary/critical care consultation dated 08/16/2021. 36-year-old male, who presents to the emergency department, on August 15, complaining of shortness of breath. The patient apparently tested positive for coronavirus infection recently. Patient has been having symptoms so far about 8-9 days. His complaints included fever, chills, cough, shortness of breath, chest congestion, and generally just not feeling well, with significant weakness, and muscle aches. The patient has not been vaccinated against coronavirus. The patient initially came in because he thought maybe he could get the monoclonal antibodies, be discharged home, he was found to be quite hypoxemic. Currently, the patient's on a nonrebreather mask, and 15 L high flow nasal cannula. The patient is feeling reasonably good at this time, but is very short of breath with any activity. He denies all other medical problems, and he does not smoke cigarettes. White count 5.8, hemoglobin 7.6, hematocrit 50.9, and platelet count 208,000. D-dimer is 0.96. PT/INR, and PTT are all normal. Sodium 134, potassium 4.2, chloride 98, CO2 21, anion gap 15, BUN 23, and creatinine 0.87. AST 113, ALT 54, ferritin 3518, LDH 2508, troponin negative 3, C-reactive protein 20.9, and pro-calcitonin level was 1.88. Chest x-ray shows diffuse bilateral infiltrates consistent with coronavirus associated pne umonia. Progress note dated 08/17/2021. 36-year-old non-vaccinated male, admitted, through the emergency department on August 15, for acute hypoxemic respiratory failure secondary to coronavirus as sociated pneumonia. Currently, the patient is on AIRVO, at 60 L/m and 90%, as well as a nonrebreather mask. The patient is scheduled to have a CT angiogram to rule out PE. Currently, laying on his left side. He seems to have a pretty good attitude, and is pretty positive. No new labs today. The labs from the fourth and the fifth are reviewed. The patient is currently on albuterol inhaler, vitamin C, Decadron, Lovenox, vitamin D3, and zinc. In addition, the patient is on ARABELLA. Progress note dated 08/18/2021. 36-year-old nonvaccinated male, admitted to the emergency department on August 15, for acute hypoxemic respiratory failure secondary to coronavirus associated pneumonia. Currently, the patient is on AIRVO at 60 L/m with an FiO2 of 90%, and also a nonrebreather mask. He feels about the same today as he did yesterday. We attempted to get a CT angiogram on the patient to rule out PE, but he may be too unstable to go to the CT scanner. We did order repeat d- dimer, and some Dopplers of the lower extremities. He is currently laying on his right side. In addition to shortness of breath, he also mentions that he has a harsh cough. He currently remains on albuterol inhaler, vitamin C, Decadron, Lovenox, vitamin D3, and zinc. In addition, the patient remains on ARABELLA. Labs today include a white count of 9.28, hemoglobin 16.4, hematocrit 44.6, platelet count 305,000. Sodium 135, potassium 4.3, chlorides 99, CO2 22, anion gap 14, BUN 21, and creatinine 0.7. Chest x-ray shows diffuse bilateral infiltrates, essentially unchanged, and venous Dopplers of the lower extremities are negative. Objective - Vital Signs Vital signs: Vital Signs Temp 99.7 F H 08/18/21 08:00 Pulse 85 08/18/21 08:00 Resp 26 H 08/18/21 08:00 BP 122/78 08/18/21 08:00 Pulse Ox 89 L 08/18/21 11:36 Intake & Output 08/17/21 08/18/21 08/18/21 19:59 06:59 18:59 Output Total Balance Output: Stool Other: Voiding Method # Voids # Bowel Movements - Exam Mild conversational dyspnea. Currently on AIRVO, and a nonrebreather mask. Saturations are in the low 90 range. HEENT examination is grossly unremarkable. Neck supple. Full range of motion. No adenopathy thyromegaly or neck vein distention. Cardiovascular examination reveals regular rhythm rate. S1-S2 normal. No S3 or S4. No discernible murmur noted. Heart rate 85 bpm. Lungs reveal coarse bilateral breath sounds. Coarse expiratory rhonchi are noted. No wheezes. Basilar crackles appreciated. Breath sounds equal bilaterally. Abdomen soft bowel sounds are heard. No masses or tenderness. Extremities are intact. No cyanosis clubbing or edema. Skin is without rash or lesion. Neurologic examination is brief but nonfocal. - Labs CBC & Chem 7: 08/18/21 07:48 08/18/21 07:48 Labs: Abnormal Lab Results - Last 24 Hours (Table) 08/18/21 08/18/21 08/18/21 Range/Units 07:48 07:48 07:48 MCH 33.7 H (27.0-32.0) pg MPV 9.1 L (9.5-12.2) fL Immature Gran # 0.11 H (0.00-0.04) X 10*3/uL Neutrophils # 8.35 H (1.80-7.70) X 10*3/uL Lymphocytes # 0.43 L (0.90-5.00) X 10*3/uL Eosinophils # 0 L (0.04-0.35) X 10*3/uL D-Dimer 2.05 H (<0.60) mg/L FEU Anion Gap 14.00 H (4.00-12.00) mmol/L BUN/Creatinine Ratio 29.87 H (12.00-20.00) Ratio Glucose 113 H (70-110) mg/dL Calcium 8.1 L (8.7-10.3) mg/dL AST 94 H (14-35) U/L ALT 68 H (10-49) U/L Lactate Dehydrogenase 1447 H (120-246) U/L C-Reactive Protein 5.40 H (0.00-0.80) mg/dL Albumin 3.4 L (3.8-4.9) g/dL Albumin/Globulin Ratio 1.19 L (1.60-3.17) g/dL Microbiology - Last 24 Hours (Table) 08/15/21 16:52 Blood Culture - Preliminary Blood No Growth after 48 hours 08/15/21 16:52 Blood Culture - Preliminary Blood No Growth after 48 hours Assessment and Plan Assessment: Acute hypoxemic respiratory failure, secondary to coronavirus associated pneumonia. Elevated inflammatory markers secondary to coronavirus infection. Plan: Plan dated 08/16/2021. The patient is not a candidate for REM. The patient should receive vitamin C, v itamin D3, and zinc. In addition, the patient should receive Lovenox, and Decadron. In addition, because the patient's oxygen requirements have significantly increased, the patient should be on ARABELLA, 4 mg a day for up to 14 days. Additional recommendations and suggestions are forthcoming. Prognosis is guarded. We will continue to follow make recommendations where appropriate. Plan dated 08/17/2021. The patient is currently now on AIRVO at 60 L/m with an FiO2 of 90%. He is also wearing a nonrebreather mask. We schedule him for a CT angiogram to rule out pulmonary embolism. The patient's on appropriate medications including steroids, Lovenox, and vitamins. In addition, the patient is on ARABELLA. We will continue to follow and make recommendations where appropriate. We did alert the ICU charge nurse about the patient, just in case he worsens and has to move. Prognosis is guarded. Plan dated 08/18/2021. Clinically, the patient's about the same. He remains on the AIRVO at 60 L/m and an FiO2 of about 90%. He also is on the nonrebreather mask. The patient had Dopplers of the lower extremities which were negative. D-dimer is pending. The patient remains on steroids, Lovenox, and vitamin C, vitamin D3, and zinc. The patient is also getting ARABELLA. We will continue to follow make recommendations where appropriate. We did alert the ICU nurse, that the patient could dete riorate, and may need to be transferred to the intensive care unit. Currently, he is relatively stable on the floor. Prognosis is guarded. Time with Patient: Less than 30
--- NOTE | 2021-08-18 20:31 | PN ---
PROGRESS NOTE DATE OF SERVICE: 08/18/2021 REASON FOR FOLLOWUP: COVID-19 pneumonia. INTERVAL HISTORY: The patient is afebrile. The patient is breathing slightly comfortably, still requiring high-flow through the AIRVO. Patient denies having chest pain. Did have a cough, not bringing up any sputum. No vomiting. No abdominal pain or diarrhea. PHYSICAL EXAMINATION: Blood pressure 141/61, pulse of 94, temperature of 98. He is 91% on AIRVO. General description is a middle-aged male up in the bed in no distress. RESPIRATORY SYSTEM: Unlabored breathing. Decreased intensity of breath sounds. No wheeze. HEART: S1, S2. Regular rate and rhythm. ABDOMEN: Soft. No tenderness. LABS: Hemoglobin is 16.1, white count of 9.28, creatinine 0.7. DIAGNOSTIC IMPRESSION AND PLAN: Patient with acute COVID-19 pneumonia with acute respiratory failure. Patient is currently on dexamethasone, Lovenox, zinc and ascorbic acid; to continue along with respiratory support. Monitor his clinical course closely. MMODL / IJN: [id number] /
--- NOTE | 2021-08-18 22:55 | P.PN ---
Subjective Progress Note Date: 08/18/21 Principal diagnosis: COVID-19 pneumonia Mr. Carlisle is a 28-year-old male with no significant past medical history admitted for COVID-19 pneumonia. He is not vaccinated 08/17/2021-patient seen and examined at the bedside. He is currently on Airvo at 6 L/m saturating at 90%. Patient states that his shortness of breath still continues to be the same. On reviewing her vitals T-max of 99.8 around 2:00 this afternoon, heart rate 68, respiratory rate 26 blood pressure 117 was 62. Reviewed labs from yesterday showing sodium 134, potassium 4.0, chloride 98, bicarbonate 21, creatinine 23, creatinine 0.87. Troponin less than 0.0123. 08/18/2021 patient is seen and examined at the bedside. Patient is currently lying in a prone position and watching his cell phone. He states his breathing thing continues to be the same. He denies any deterioration in improvement in his difficulty in breathing. Patient denies having any fever chills or rigors. He denies having any chest pain or palpitations. No abdominal pain nausea vomiting or diarrhea. No dysuria or hematuria. Patient's vitals revealed temperature of 98, heart rate 88, respiratory 26, blood pressure 136/81 saturating at 93% on 15 L of nonrebreather. Patient's labs have been reviewed. Patient medications have been Active Medications Acetaminophen (Acetaminophen Tab 325 Mg Tab) 650 mg PO Q4HR PRN PRN Reason: Fever>101 Last Admin: 08/17/21 01:53 Dose: 650 mg Documented by: Albuterol Sulfate (Albuterol Hfa Inhaler) 4 puff INHALATION RT-QID [facility] Last Admin: 08/18/21 20:22 Dose: 4 puff Documented by: Ascorbic Acid (Ascorbic Acid 500 Mg Tab) 1,000 mg PO DAILY [facility] Last Admin: 08/18/21 09:22 Dose: 1,000 mg Documented by: Dexamethasone Sodium Phosphate (Dexamethasone Sod Phosphate 10 Mg/Ml 1 Ml Vial) 6 mg IVP DAILY [facility] Last Admin: 08/18/21 09:29 Dose: 6 mg Documented by: Enoxaparin Sodium (Enoxaparin 40 Mg/0.4 Ml Syringe) 40 mg SQ DAILY [facility] Last Admin: 08/18/21 09:23 Dose: 40 mg Documented by: Fluticasone Propionate (Fluticasone 50mcg/[place] Nasal 16gm) 2 spray EA NOSTRIL DAILY [facility] Last Admin: 08/18/21 09:23 Dose: 2 spray Documented by: Sodium Chloride (Saline 0.9%) 1,000 mls @ 75 mls/hr IV .[id number] [facility] Last Admin: 08/18/21 16:07 Dose: 75 mls/hr Documented by: Naloxone HCl (Naloxone 0.4 Mg/Ml 1 Ml Vial) 0.2 mg IV Q2M PRN PRN Reason: Opioid Reversal Ondansetron HCl (Ondansetron 4 Mg/2 Ml Vial) 4 mg IVP Q8HR PRN PRN Reason: Nausea And Vomiting Sodium Chloride (Sodium Chloride 0.65% Nasal [place] 44 Ml Btl) 2 spray NASAL QID PRN PRN Reason: Dry Nasal Passages Last Admin: 08/16/21 12:27 Dose: 2 spray Documented by: Zinc Sulfate (Zinc Sulfate 220 Mg Cap) 220 mg PO DAILY [facility] Last Admin: 08/18/21 09:22 Dose: 220 mg Documented by: Objective - Vital Signs Vital signs: Vital Signs Temp 98.0 F 08/18/21 14:00 Pulse 88 08/18/21 14:00 Resp 26 H 08/18/21 14:00 BP 136/81 08/18/21 14:00 Pulse Ox 93 L 08/18/21 14:00 Intake & Output 08/17/21 08/18/21 08/18/21 19:59 06:59 18:59 Output Total Balance Output: Stool Other: Voiding Method # Voids # Bowel Movements - Exam PHYSICAL EXAMINATION: GENERAL: The patient is alert and oriented x3, not in any acute distress. Lying in prone position HEENT: Pupils are round and equally reacting to light. EOMI. No scleral icterus. No conjunctival pallor. Mild conjunctival hemorrhage in the right eye CARDIOVASCULAR: S1 and S2 present. No murmurs, rubs, or gallops. PULMONARY: Bilateral coarse rhonchi in all lung pace. ABDOMEN: Soft, nontender, nondistended, normoactive bowel sounds. No palpable organomegaly. MUSCULOSKELETAL: No joint swelling or deformity. EXTREMITIES: No cyanosis, clubbing, or pedal edema. NEUROLOGICAL: Gross neurological examination did not reveal any focal deficits. SKIN: No rashes. - Labs CBC & Chem 7: 08/18/21 07:48 08/18/21 07:48 Labs: Abnormal Lab Results - Last 24 Hours (Table) 08/18/21 08/18/21 08/18/21 Range/Units 07:48 07:48 07:48 MCH 33.7 H (27.0-32.0) pg MPV 9.1 L (9.5-12.2) fL Immature Gran # 0.11 H (0.00-0.04) X 10*3/uL Neutrophils # 8.35 H (1.80-7.70) X 10*3/uL Lymphocytes # 0.43 L (0.90-5.00) X 10*3/uL Eosinophils # 0 L (0.04-0.35) X 10*3/uL D-Dimer 2.05 H (<0.60) mg/L FEU Anion Gap 14.00 H (4.00-12.00) mmol/L BUN/Creatinine Ratio 29.87 H (12.00-20.00) Ratio Glucose 113 H (70-110) mg/dL Calcium 8.1 L (8.7-10.3) mg/dL Ferritin 4441.0 H (22.0-322.0) ng/mL AST 94 H (14-35) U/L ALT 68 H (10-49) U/L Lactate Dehydrogenase 1447 H (120-246) U/L C-Reactive Protein 5.40 H (0.00-0.80) mg/dL Albumin 3.4 L (3.8-4.9) g/dL Albumin/Globulin Ratio 1.19 L (1.60-3.17) g/dL Microbiology - Last 24 Hours (Table) 08/15/21 16:52 Blood Culture - Preliminary Blood No Growth after 48 hours 08/15/21 16:52 Blood Culture - Preliminary Blood No Growth after 48 hours Assessment and Plan Assessment: ASSESSMENT Acute hypoxic respiratory failure secondary to COVID-19 pneumonia Bilateral pneumonia Hypovolemic hyponatremia PLAN: Continue Airvo 60 L/m to maintain oxygen saturations above 90%. Patient to be continued on steroids, Lovenox, multivitamins, breathing treatments. He has been started on Baricitinib by pulmonary.Pulmonary guarded CTA of the chest yesterday, but the patient was to unstable to get the testing done. So currently he will be getting a repeat D-dimer and bilateral lower extremity Doppler.. Overall prognosis is guarded
[2021-08-19] MEDS: ALBUTEROL HFA INHALER INHALATION SCH ×4 (07:25→19:34)
[2021-08-19] MEDS: DEXAMETHASONE SOD PHOSPHATE 10 MG/ML 1 ML VIAL IVP SCH ×2 (09:02→20:38)
[2021-08-19] MEDS: ASCORBIC ACID 500 MG TAB PO SCH (09:02)
[2021-08-19] MEDS: ENOXAPARIN 40 MG/0.4 ML SYRINGE SQ SCH ×2 (09:02→20:38)
[2021-08-19] MEDS: ZINC SULFATE 220 MG CAP PO SCH (09:02)
[2021-08-19] MEDS: ACETAMINOPHEN TAB 325 MG TAB PO PRN (09:08)
[2021-08-19] MEDS: FLUTICASONE 50MCG/SPRAY NASAL 16GM EA NOSTRIL SCH (09:10)
[2021-08-19 11:09] LABS: C Reactive Protein 12.3 mg/dL (0.00-0.80)
--- NOTE | 2021-08-19 13:34 | P.PN ---
Subjective Progress Note Date: 08/19/21 on 2020 on seeing the patient for a follow-up. This is a pleasant 36-year-old male patient with Covid associated pneumonia. The patient was hospitalized for worsening shortness of breath and generalized weakness and muscle aches. He is a nonvaccinated individual. He was on a nonrebreather fa cemask. During the course of his illness, he was placed on Airvo at 60 L were notified to 90% and earlier this morning the patient was transitioned to BiPAP which is currently at the pressure of 15/5 with an FiO2 of 100%. The chest x- ray showing bilateral diffuse pulmonary infiltrates. Doppler of the lower extremity has been negative. The patient has blood work which showed a d-dimer of 30.2. His LDH level was elevated at 1463 and the CRP level is at 12.3. The patient is white cell count of 9.28 with a hemoglobin of 16.4 and a platelet count of 305. Electrodes are within normal limits. The patient was treated with a combination of Decadron 6 mg IV every 24 hours. He is on Lovenox 40 mg subcu twice a day. He is on normal saline at the rate of 75 mL an hour. He is also taking oral zinc and vitamin C. Noted the patient's has not received any other outpatient treatment prior to his hospitalization. He did not receive monoclonal antibodies. He was symptomatic around 9 days prior to him coming to the hospital. The patient is currently on a BiPAP at a pressure of 15/5 cm of w ater with an FiO2 of 100%. The patient was also placed in a prone body positioning which obviously helped him with his oxygenation and the patient's pulse ox is up to 91% Objective - Vital Signs Vital signs: Vital Signs Temp 98.3 F 08/19/21 12:58 Pulse 92 08/19/21 12:58 Resp 28 H 08/19/21 12:58 BP 128/74 08/19/21 12:58 Pulse Ox 96 08/19/21 12:58 Intake & Output 08/18/21 08/19/21 08/19/21 18:59 06:59 18:59 Output Total 450 1 Balance -450 -1 Output: Urine 450 Stool 1 Other: Voiding Method Bedside Commode Urinal # Voids 2 2 # Bowel Movements 1 1 - Exam Mild conversational dyspnea. The breathing is labored and the patient is having difficulties in breathing especially when he lays down in bed. He is currently on a BiPAP at pressures of 12/6 with an FiO2 of 100%. Unable to tolerate Arava because of worsening shortness of breath and desaturation. HEENT examination is grossly unremarkable. Neck supple. Full range of motion. No adenopathy thyromegaly or neck vein distention. Cardiovascular examination reveals regular rhythm rate. S1-S2 normal. No S3 or S4. No discernible murmur noted. Heart rate 85 bpm. Lungs reveal coarse bilateral breath sounds. Coarse expiratory rhonchi are noted. No wheezes. Basilar crackles appreciated. Breath sounds equal bilaterally. Abdomen soft bowel sounds are heard. No masses or tenderness. Extremities are intact. No cyanosis clubbing or edema. Skin is without rash or lesion. Neurologic examination is brief but nonfocal. - Labs CBC & Chem 7: 08/18/21 07:48 08/18/21 07:48 Labs: Abnormal Lab Results - Last 24 Hours (Table) 08/18/21 08/19/21 08/19/21 Range/Units 07:48 08:12 08:12 D-Dimer 30.24 H (<0.60) mg/L FEU Ferritin 4441.0 H (22.0-322.0) ng/mL Lactate Dehydrogenase 1463 H (120-246) U/L C-Reactive Protein 5.40 H 12.30 H (0.00-0.80) mg/dL Microbiology - Last 24 Hours (Table) 08/15/21 16:52 Blood Culture - Preliminary Blood No Growth after 72 hours 08/15/21 16:52 Blood Culture - Preliminary Blood No Growth after 72 hours Assessment and Plan Plan: 1 Acute hypoxemic respiratory failure, secondary to coronavirus associated pneumonia. With significant hypoxemia and his hypoxemia progressed and toni gallo is on a BiPAP at a pressure of 15/5 with an FiO2 of 100%. Pulse ox currently is at 91%. Inflammatory markers are elevated including LDH and CRP. D-dimer is significantly elevated. No evidence of any clotting and lower extremity and the patient is currently on Decadron and Lovenox. Decadron is a 6 milligrams every 24 hours and Lovenox 40 g subcu every 12 hours. Doppler of the lower extremity has been negative. 2 Elevated inflammatory markers secondary to coronavirus infection. 3 increased dyspnea and cough secondary to above 4 obesity with a BMI of 40.7 Plan Keep the patient prone body positioning while on the BiPAP Keep the patient on BiPAP throughout the day today at a pressure 15/5 with an FiO2 of 100%. May wean down the FiO2 slowly to maintain a saturation above 90% Repeat inflammatory markers all of them in the morning including d-dimer Increase the Decadron up to 6 mg every 12 hours as the patient is a big tom with a BMI of 40.7 Continue with Lovenox 40 mg subcu every 12 hours Continue the rest of the oral multivitamin supplements Condition is obviously critical continue to follow we'll and make further recommendations based on patient's progress.
[2021-08-19] MEDS: SODIUM CHLORIDE 0.9% 1,000 ML IV SCH (16:33)
--- NOTE | 2021-08-19 16:58 | P.PN ---
Subjective Progress Note Date: 08/19/21 Principal diagnosis: COVID-19 pneumonia Mr. Carlisle is a 28-year-old male with no significant past medical history admitted for COVID-19 pneumonia. He is not vaccinated 08/17/2021-patient seen and examined at the bedside. He is currently on Airvo at 6 L/m saturating at 90%. Patient states that his shortness of breath still continues to be the same. On reviewing her vitals T-max of 99.8 around 2:00 this afternoon, heart rate 68, respiratory rate 26 blood pressure 117 was 62. Reviewed labs from yesterday showing sodium 134, potassium 4.0, chloride 98, bicarbonate 21, creatinine 23, creatinine 0.87. Troponin less than 0.0123. 08/18/2021 patient is seen and examined at the bedside. Patient is currently lying in a prone position and watching his cell phone. He states his breathing thing continues to be the same. He denies any deterioration in improvement in his difficulty in breathing. Patient denies having any fever chills or rigors. He denies having any chest pain or palpitations. No abdominal pain nausea vomiting or diarrhea. No dysuria or hematuria. Patient's vitals revealed temperature of 98, heart rate 88, respiratory 26, blood pressure 136/81 saturating at 93% on 15 L of nonrebreather. Patient's labs have been reviewed. On 08/19/2021 - patient is currently lying in a prone position, watching a movie on his electronic device. Patient denies having any fevers chills or rigors. His difficulty in breathing is still the same but mild productive cough. Patient denies having any chest pain or palpitations. No abdominal pain nausea vomiting or diarrhea. No dysuria or hematuria. On reviewing the patient's vital signs temperature of 98.3, heart rate 92, respiratory 28, blood pressure 128/74 saturating at 96% on BiPAP 15/5. In the patient's labs D-dimer is 30.24. Medications medications have been reviewed Active Medications Acetaminophen (Acetaminophen Tab 325 Mg Tab) 650 mg PO Q4HR PRN PRN Reason: Fever>101 Last Admin: 08/19/21 09:08 Dose: 650 mg Documented by: Albuterol Sulfate (Albuterol Hfa Inhaler) 4 puff INHALATION RT-QID [facility] Last Admin: 08/19/21 15:11 Dose: 4 puff Documented by: Ascorbic Acid (Ascorbic Acid 500 Mg Tab) 1,000 mg PO DAILY [facility] Last Admin: 08/19/21 09:02 Dose: 1,000 mg Documented by: Dexamethasone Sodium Phosphate (Dexamethasone Sod Phosphate 10 Mg/Ml 1 Ml Vial) 6 mg IVP Q12HR [facility] Enoxaparin Sodium (Enoxaparin 40 Mg/0.4 Ml Syringe) 40 mg SQ BID [facility] Fluticasone Propionate (Fluticasone 50mcg/[place] Nasal 16gm) 2 spray EA NOSTRIL DAILY [facility] Last Admin: 08/19/21 09:10 Dose: Not Given Documented by: Sodium Chloride (Saline 0.9%) 1,000 mls @ 75 mls/hr IV .[id number] [facility] Last Admin: 08/19/21 16:33 Dose: Not Given Documented by: Naloxone HCl (Naloxone 0.4 Mg/Ml 1 Ml Vial) 0.2 mg IV Q2M PRN PRN Reason: Opioid Reversal Ondansetron HCl (Ondansetron 4 Mg/2 Ml Vial) 4 mg IVP Q8HR PRN PRN Reason: Nausea And Vomiting Sodium Chloride (Sodium Chloride 0.65% Nasal [place] 44 Ml Btl) 2 spray NASAL QID PRN PRN Reason: Dry Nasal Passages Last Admin: 08/16/21 12:27 Dose: 2 spray Documented by: Zinc Sulfate (Zinc Sulfate 220 Mg Cap) 220 mg PO DAILY [facility] Last Admin: 08/19/21 09:02 Dose: 220 mg Documented by: Objective - Vital Signs Vital signs: Vital Signs Temp 98.3 F 08/19/21 12:58 Pulse 92 08/19/21 12:58 Resp 28 H 08/19/21 12:58 BP 128/74 08/19/21 12:58 Pulse Ox 96 08/19/21 12:58 Intake & Output 08/18/21 08/19/21 08/19/21 18:59 06:59 18:59 Output Total 450 1 Balance -450 -1 Output: Urine 450 Stool 1 Other: Voiding Method Bedside Commode Urinal # Voids 2 2 # Bowel Movements 1 1 - Exam PHYSICAL EXAMINATION: GENERAL: The patient is alert and oriented x3, not in any acute distress. Lying in prone position HEENT: Pupils are round and equally reacting to light. EOMI. No scleral icterus. No conjunctival pallor. CARDIOVASCULAR: S1 and S2 present. No murmurs, rubs, or gallops. PULMONARY: Bilateral coarse rhonchi in all lung pace. ABDOMEN: Soft, nontender, nondistended, normoactive bowel sounds. No palpable organomegaly. MUSCULOSKELETAL: No joint swelling or deformity. EXTREMITIES: No cyanosis, clubbing, or pedal edema. NEUROLOGICAL: Gross neurological examination did not reveal any focal deficits. SKIN: No rashes. - Labs CBC & Chem 7: 08/18/21 07:48 08/18/21 07:48 Labs: Abnormal Lab Results - Last 24 Hours (Table) 08/18/21 08/19/21 08/19/21 Range/Units 07:48 08:12 08:12 D-Dimer 30.24 H (<0.60) mg/L FEU Ferritin 4441.0 H (22.0-322.0) ng/mL Lactate Dehydrogenase 1463 H (120-246) U/L C-Reactive Protein 5.40 H 12.30 H (0.00-0.80) mg/dL Microbiology - Last 24 Hours (Table) 08/15/21 16:52 Blood Culture - Preliminary Blood No Growth after 72 hours 08/15/21 16:52 Blood Culture - Preliminary Blood No Growth after 72 hours Assessment and Plan Assessment: ASSESSMENT Acute hypoxic respiratory failure secondary to COVID-19 pneumonia Bilateral pneumonia Hypovolemic hyponatremia Elevated inflammatory markers PLAN: Patient is currently on BiPAP 15 x 5 on 100% FiO2 Patient to be continued on steroids, multivitamins, breathing treatments. He has been started on Baricitinib by pulmonary. CTA of the chest ordered ,but the patient was to unstable to get the testing done. Patient's d-dimer is elevated currently on Lovenox 40 mg twice a day Lower extremity Doppler is negative for DVT Overall prognosis is guarded.
[2021-08-19] MEDS ORDERED: CALCIUM CARBONATE 500 MG CHEWABLE PO PRN (20:48)
[2021-08-19] MEDS ORDERED: ALPRAZolam 0.25 MG TAB PO STA (20:49)
[2021-08-19] MEDS: FAMOTIDINE 20 MG TAB PO SCH (21:22)
--- NOTE | 2021-08-19 22:52 | PN ---
PROGRESS NOTE DATE OF SERVICE: 08/19/2021 REASON FOR FOLLOWUP: COVID-19 pneumonia. INTERVAL HISTORY: Patient is afebrile. The patient is breathing slightly comfortably. Denies having any chest pain. No worsening cough. No nausea, vomiting. No abdominal pain. No diarrhea. PHYSICAL EXAMINATION: Blood pressure 123/67 with a pulse of 94, temperature 98.7. He is 92% on 100% FiO2. General description is a middle-aged male lying in bed in no distress. Respiratory system: Unlabored breathing, decreased intensity of breath sounds. No wheeze. Heart S1, S2. Regular rate and rhythm. Abdomen soft. No tenderness. LAB DATA: D. dimer is 13.24. CRP and LDL were elevated. DIAGNOSTIC IMPRESSION AND PLAN: Patient with acute COVID-19 pneumonia, seemed to have slight worsening of his inflammatory markers. Lovenox dose has been adjusted up, may benefit from Baricitinib, discussed with Pulmonary. Continue dexamethasone, Lovenox, zinc and ascorbic acid and respiratory support. Monitor clinical course closely. MMODL / IJN: [id number] /
[2021-08-20] MEDS: SODIUM CHLORIDE 0.9% 1,000 ML IV SCH ×2 (05:55→11:43)
[2021-08-20] MEDS: ALBUTEROL HFA INHALER INHALATION SCH ×4 (07:45→20:23)
[2021-08-20] MEDS ORDERED: ALPRAZolam 0.25 MG TAB PO PRN (07:54)
[2021-08-20] MEDS: ASCORBIC ACID 500 MG TAB PO SCH (08:15)
[2021-08-20] MEDS: ZINC SULFATE 220 MG CAP PO SCH (08:15)
[2021-08-20] MEDS: FAMOTIDINE 20 MG TAB PO SCH (08:15)
[2021-08-20] MEDS: ENOXAPARIN 40 MG/0.4 ML SYRINGE SQ SCH ×2 (08:16→22:30)
[2021-08-20] MEDS: DEXAMETHASONE SOD PHOSPHATE 10 MG/ML 1 ML VIAL IVP SCH ×2 (08:16→22:31)
[2021-08-20] MEDS: FLUTICASONE 50MCG/SPRAY NASAL 16GM EA NOSTRIL SCH (08:17)
[2021-08-20 08:43] LABS: C Reactive Protein 25.3 mg/dL (<1.0)
--- NOTE | 2021-08-20 12:56 | P.PN ---
Subjective Progress Note Date: 08/20/21 on 2020 on seeing the patient for a follow-up. This is a pleasant 36-year-old male patient with Covid associated pneumonia. The patient was hospitalized for worsening shortness of breath and generalized weakness and muscle aches. He is a nonvaccinated individual. He was on a nonrebreather fa cemask. During the course of his illness, he was placed on Airvo at 60 L were notified to 90% and earlier this morning the patient was transitioned to BiPAP which is currently at the pressure of 15/5 with an FiO2 of 100%. The chest x- ray showing bilateral diffuse pulmonary infiltrates. Doppler of the lower extremity has been negative. The patient has blood work which showed a d-dimer of 30.2. His LDH level was elevated at 1463 and the CRP level is at 12.3. The patient is white cell count of 9.28 with a hemoglobin of 16.4 and a platelet count of 305. Electrodes are within normal limits. The patient was treated with a combination of Decadron 6 mg IV every 24 hours. He is on Lovenox 40 mg subcu twice a day. He is on normal saline at the rate of 75 mL an hour. He is also taking oral zinc and vitamin C. Noted the patient's has not received any other outpatient treatment prior to his hospitalization. He did not receive monoclonal antibodies. He was symptomatic around 9 days prior to him coming to the hospital. The patient is currently on a BiPAP at a pressure of 15/5 cm of w ater with an FiO2 of 100%. The patient was also placed in a prone body positioning which obviously helped him with his oxygenation and the patient's pulse ox is up to 91% On 08/20/2021, the patient is still struggling with his breathing. Is a bit tachypneic and he is absolutely dependent on the BiPAP which is set at a pressure of 16/6 cm of water and FiO2 100%. He is able to generate tidal volume of around above in 1000 and his respiratory rate currently is at 32 as the patient is laying down in a prone body position. The patient is a nonvaccinated individual. He had progressive worsening his oxygenation. He was on a nonrebreather and later on on an Airvo and currently is on a BiPAP. The patient is on Decadron 6 mg IV every 12 hours and the patient is also on Lovenox 40 mg subcu for DVT prophylaxis. He was on Baricitinib that was discontinued. I would suggest putting the patient back on Baricitinib and I have already discussed this with infectious disease. In terms of his inflammatory markers, the patient has a d-dimer of 34 and his LDH level is up to 4263 and his CRP leve l is up to 25.3. No other labs are available. Unfortunately his inflammatory markers are on the rise. In terms of treatment, as mentioned, he is on Decadron 6 mg IV every 12 hours. Lovenox is 40 mg subcu every 12 hours. His Doppler of the lower extremities was done on 08/18/2021 was negative for DVT. The elevation d-dimer along with LDH rise is consistent with worsening of his forward 19 related pneumonia and explained his progressive respiratory failure. Pulmonary embolism is felt to be less likely. We'll repeat the Doppler. Objective - Vital Signs Vital signs: Vital Signs Temp 97.9 F 08/20/21 08:00 Pulse 124 H 08/20/21 08:00 Resp 24 08/20/21 08:00 BP 139/75 08/20/21 08:00 Pulse Ox 85 L 08/20/21 08:00 Intake & Output 08/19/21 08/20/21 08/20/21 18:59 06:59 18:59 Output Total 400 300 Balance -400 -300 Output: Urine 400 300 Other: Voiding Method Bedside Commode Urinal # Voids 4 # Bowel Movements 3 2 - Exam Mild conversational dyspnea. The breathing is labored and the patient is having difficulties in breathing especially when he lays down in bed. He is currently on a BiPAP at pressures of 16/6 with an FiO2 of 100%. Unable to tolerate Arava because of worsening shortness of breath and desaturation. HEENT examination is grossly unremarkable. Neck supple. Full range of motion. No adenopathy thyromegaly or neck vein distention. Cardiovascular examination reveals regular rhythm rate. S1-S2 normal. No S3 or S4. No discernible murmur noted. Heart rate 85 bpm. Lungs reveal coarse bilateral breath sounds. Coarse expiratory rhonchi are noted. No wheezes. Basilar crackles appreciated. Breath sounds equal bilaterally. Abdomen soft bowel sounds are heard. No masses or tenderness. Extremities are intact. No cyanosis clubbing or edema. Skin is without rash or lesion. Neurologic examination is brief but nonfocal. - Labs CBC & Chem 7: 08/18/21 07:48 08/18/21 07:48 Labs: Abnormal Lab Results - Last 24 Hours (Table) 08/20/21 08/20/21 Range/Units 05:56 05:56 D-Dimer >34.10 H (<0.60) mg/L FEU Lactate Dehydrogenase 4263 H (313-618) U/L C-Reactive Protein 25.3 H (<1.0) mg/dL Microbiology - Last 24 Hours (Table) 08/15/21 16:52 Blood Culture - Preliminary Blood No Growth after 96 hours 08/15/21 16:52 Blood Culture - Preliminary Blood No Growth after 96 hours Assessment and Plan Plan: 1 Acute hypoxemic respiratory failure, secondary to coronavirus associated pneumonia. With significant hypoxemia and his hypoxemia progressed and currently is on a BiPAP at a pressure of 16/5 with an FiO2 of 100%. Pulse ox currently is at 91%. Inflammatory markers are elevated including LDH and CRP. D-dimer is significantly elevated. On today's evaluation, there is further increase in inflammatory markers including LDH and D dimers. No evidence of any clotting and lower extremity and the patient is currently on Decadron and Lovenox. Decadron is a 6 milligrams every 24 hours and Lovenox 40 g subcu every 12 hours. Doppler of the lower extremity has been negative. This was done on 08/18/2021 and a Doppler of the lower extremity was repeated. Clinically the patient is worse. He is quite BiPAP dependent. 2 Elevated inflammatory markers secondary to coronavirus infection. 3 increased dyspnea and cough secondary to above 4 obesity with a BMI of 40.7 Plan I have made recommendations chest with this patient to the intensive care unit Keep the patient prone body positioning while on the BiPAP Keep the patient on BiPAP throughout the day today at a pressure 16/5 with an FiO2 of 100%. May wean down the FiO2 slowly to maintain a saturation above 90%, For now, we are unable to wean down his FiO2 and the patient's pulse ox is at 88% Repeat inflammatory markers all of them in the morning including d-dimer Repeated Doppler of the lower extremity continue the Decadron up to 6 mg every 12 hours as the patient is a big tom with a BMI of 40.7 Continue with Lovenox 40 mg subcu every 12 hours Continue the rest of the oral multivitamin supplements Condition is obviously critical continue to follow we'll and make further recommendations based on patient's progress. Chest x-ray will be repeated once the patient is transferred to the ICU
--- NOTE | 2021-08-20 13:45 | US ---
EXAMINATION TYPE: US venous doppler duplex LE BI DATE OF EXAM: 08/20/2021 1:29 PM COMPARISON: 08/18/2021 CLINICAL HISTORY: 36-year-old male Elevated d dimer, hypoxemia. SIDE PERFORMED: Bilateral TECHNIQUE: The lower extremity deep venous system is examined utilizing real time linear array sonog brian with graded compression, doppler sonography and color-flow sonography. FINDINGS: VESSELS IMAGED: Common Femoral Vein Deep Femoral Vein Greater Saphenous Vein * Femoral Vein Popliteal Vein Small Saphenous Vein * Proximal Calf Veins (* superficial vessels) Right Leg: Negative for DVT Left Leg: Negative for DVT IMPRESSION: No evidence for DVT within the bilateral lower extremities imaged from the groin to the upper calves.
[2021-08-20] MEDS ORDERED: BARICITINIB 2 MG TABLET PO SCH (14:00)
[2021-08-20 15:23] LABS: Glucose,Whole Blood 134 mg/dL (75-99)
[2021-08-20] MEDS ORDERED: propofoL 100 ML IV ONE (16:10)
[2021-08-20] MEDS ORDERED: CISATRACURIUM 2 MG/ML 5 ML VIAL IV ONE ×4 (16:11→18:07)
[2021-08-20] MEDS ORDERED: NOREPINEPHRIN 4 MG-0.9% NS PMX 4 MG/250 ML ML IV ONE (17:37)
[2021-08-20] MEDS ORDERED: SODIUM BICARB 8.4% 50 ML SYR (1 MEQ/ML) ONE ×2 (17:37→17:50)
[2021-08-20] MEDS ORDERED: SUCCINYLCHOLINE CHLORIDE VIAL 200 MG/10 ML VIAL IV ONE (18:10)
--- NOTE | 2021-08-20 18:17 | PN ---
PROGRESS NOTE DATE OF SERVICE: 08/20/2021. This 36-year-old gentleman admitted with acute COVID-19 infection also had bilateral pneumonia and acute hypoxic respiratory failure. The patient has taken a turn for the worse. The patient is not improving on BiPAP and the patient was subsequently transferred to ICU at this time. The venous Doppler which was repeated today was negative for DVT. The most recent chest x-ray showed significant bilateral lesions. The patient is on dexamethasone and other usual treatment. Past medical history reviewed. The patient is also having significant diarrhea. REVIEW OF SYSTEMS: CARDIOVASCULAR SYSTEM: No angina. RESPIRATION: As mentioned earlier. GI: As mentioned earlier. : No dysuria. NERVOUS SYSTEM: No numbness, weakness. CURRENT MEDICATIONS: Reviewed. They include Tylenol, ventolin, Xanax, vitamin C, baricitinib, Tums, dexamethasone, Pepcid. Doses are reviewed. PHYSICAL EXAMINATION: Patient is alert, oriented x3. Extremely short of breath. Pulse 107, blood pressure 108/56, respiration 24, temperature 98.8, pulse ox 87% on BiPAP. HEENT: Conjunctivae normal. NECK: No jugular venous distention. CARDIOVASCULAR: S1, S2 muffled. RESPIRATION: Breath sounds diminished at the bases. Bilateral scattered rhonchi and crackles. Expiratory wheezing. ABDOMEN: Soft. NERVOUS SYSTEM: No focal deficit. LABS: CBC within normal limits. D-dimer is noted, more than 34. Influenza markers elevated. ASSESSMENT: 1. Acute COVID-19 infection with acute COVID-19 bilateral interstitial pneumonia with acute hypoxic respiratory failure. 2. Hypovolemic hyponatremia. 3. Possible gastrointestinal involvement of COVID-19. 4. Elevated inflammatory markers of COVID-19 infection. 5. Obesity with body mass index of 40.7. 6. Elevated D-dimer without any evidence of deep vein thrombosis. 7. Elevated AST, ALT. 8. Elevated CRP, LDH. RECOMMENDATIONS AND DISCUSSION: I recommend to continue current medications, continue with symptomatic treatment. Closely follow with multiple consultants. Repeat labs will be ordered. See orders for further details. Further recommendations to follow. MMODL / IJN: [id number] /
[2021-08-20 18:21] LABS: ABG Base Excess 2.4 mmol/L; ABG HCO3 30 mmol/L (21-25); ABG Oxygen Saturation 93.3 % (94-97); ABG PH 7.23 (7.35-7.45); ABG PO2 77 mmHg (83-108); ABG TCO2 32 mmol/L (19-24)
[2021-08-20 18:26] LABS: ABG PCO2 72 mmHg (35-45); Allen Test Performed? no
[2021-08-20] MEDS ORDERED: SODIUM CHLORIDE 0.9% 2,000 ML IV ONE ×2 (18:34→22:22)
--- NOTE | 2021-08-20 18:40 | P.PCN ---
Date of Procedure: 08/20/21 Preoperative Diagnosis: COVID 19 related pneumonia with respiratory failure Postoperative Diagnosis: Same Procedure(s) Performed: Intubation Insertion of a central line Insertion of an arterial line Anesthesia: TERENCE local Surgeon: Juanjo Cortez Estimated Blood Loss (ml): 0 Pathology: none sent Condition: critical Disposition: ICU Operative Findings: Intubation Indication: Respiratory compromise. A time-out was completed verifying correct patient, procedure, site, positioning, and implant(s) or special equipment if applicable. I utilized a kaleidoscope to visualize the vocal cords The patient was positioned appropriately and a #8 endotracheal tube was placed under direct glidoscope visualization . The tube was anchored at 22 cm at the teeth. Correct placement was confirmed by presence of bilateral breath sounds without air sounds in the abdomen on auscultation. An end-tidal CO2 monitor was also used to confirm tracheal placement of the ET tube. A chest x-ray was ordered to assess for pneumothorax and verify endotracheal tube placement. The patient tolerated the procedure well and there were no complications. Arterial line insertion Indication: Hemodynamic monitoring. A time-out was completed verifying correct patient, procedure, site, positioning, and implant(s) or special equipment if applicable. Allens test was performed to ensure adequate perfusion. The patients left wrist was prepped and draped in sterile fashion. 1% Lidocaine was used to anesthetize the area. An 18G Arrow arterial line was introduced into the left radial artery artery. The catheter was threaded over the guide wire and the needle was removed with appropriate pulsatile blood return. Blood loss was minimal. The catheter was then sutured in place to the skin and a sterile dressing applied. Perfusion to the extremity distal to the point of catheter insertion was checked and found to be adequate. The patient tolerated the procedure well and there were no complications. Central line Indication: Hemodynamic monitoring/Intravenous access. A time-out was completed verifying correct patient, procedure, site, positioning, and implant(s) or special equipment if applicable. The patient was placed in a dependent position appropriate for central line placement based on the vein to be cannulated. The patients left chest was prepped and draped in sterile fashion. 1% Lidocaine was used to anesthetize the surrounding skin area. A triple lumen 9F Cordis catheter was introduced into the left subclavian vein using Seldinger technique. The catheter was threaded smoothly over the guide wire and appropriate blood return was obtained. Each lumen of the catheter was evacuated of air and flushed with sterile saline. The catheter was then sutured in place to the skin and a sterile dressing applied. Perfusion to the extremity distal to the point of catheter insertion was checked and found to be adequate. The patient tolerated the procedure well and there were no complications.
[2021-08-20] MEDS: CISATRACURIUM 200 MG in SODIUM CHLORIDE 0.9% 180 ML IV SCH ×2 (18:47→20:46)
--- NOTE | 2021-08-20 18:52 | XR ---
EXAMINATION TYPE: XR chest 1V portable DATE OF EXAM: 08/20/2021 COMPARISON: 08/18/2021 HISTORY: Line placement TECHNIQUE: Single view FINDINGS: The endotracheal tube is 3.5 cm from the prabhjot. There is left subclavian catheter with tip in the superior vena cava. There is pulmonary interstitial and airspace edema. There are chest leads . There is nasogastric tube in the stomach. IMPRESSION: There is diffuse pulmonary edema is slightly worse than recent exam.
[2021-08-20] MEDS: fentaNYL (PF). 1,000 MCG in SODIUM CHLORIDE 0.9% 80 ML IV SCH (20:27)
[2021-08-20] MEDS ORDERED: CEFEPIME 2 GM in SODIUM CHLORIDE 0.9% 100 ML IVPB SCH (21:00)
[2021-08-20] MEDS: CHLORHEXIDINE GLUCONATE 15 ML CUP MUCOUS MEM SCH (22:30)
[2021-08-20] MEDS: ARTIFICIAL TEARS-HYPROMELLOSE DROPS 15 ML BTL BOTH EYES SCH (22:31)
--- NOTE | 2021-08-20 22:57 | PN ---
PROGRESS NOTE DATE OF SERVICE: 08/20/2021 REASON FOR FOLLOWUP: COVID-19 pneumonia. INTERVAL HISTORY: The patient did have worsening of his respiratory status, for which the patient was transferred to the ICU. The patient did spike a fever this evening of 100.5 degrees Fahrenheit. The patient is hemodynamically stable. No significant purulent secretions through the ET, diarrhea or other changes reported by the nursing staff. PHYSICAL EXAMINATION: Blood pressure 114/62 with a pulse of 100, temperature 100.5. He is 95% on 100% FiO2. General description is a middle-aged male intubated on the vent. Respiratory system: Unlabored breathing, coarse breath sounds bilaterally. No wheeze. Heart S1, S2. Regular rate and rhythm. Abdomen soft, no tenderness. LABS: Hemoglobin 16.4, white count 9.28, BUN of 20, creatinine 0.7. LDH is elevated. Procalcitonin is only 1.88. DIAGNOSTIC IMPRESSION AND PLAN: Patient with acute respiratory failure which is likely secondary to worsening of his respiratory status from the COVID-19 pneumonia. Clinical suspicion low for secondary bacterial pneumonia. Baricitinib was discussed with Pulmonary and started but then subsequent was discontinued. Antibiotic has been added. Culture has been requested and medication will be adjusted further on the basis on clinical response and cultures. Prognosis remains guarded. Continue with supportive care. MMODL / IJN: [id number] /
[2021-08-20] MEDS ORDERED: SODIUM CHLORIDE 0.9% 1,000 ML IV ONE (23:38)
[2021-08-21] MEDS ORDERED: VANCOMYCIN 1,000 MG in SODIUM CHLORIDE 0.9% 250 ML IVPB ONE ×2
[2021-08-21 00:01] LABS: Glucose,Whole Blood 205 mg/dL (75-99)
[2021-08-21] MEDS: NOREPINEPHRINE 4 MG in SODIUM CHLORIDE 0.9% 250 ML IV SCH ×5 (01:08→23:10)
[2021-08-21] MEDS: fentaNYL (PF). 1,000 MCG in SODIUM CHLORIDE 0.9% 80 ML IV SCH ×4 (01:53→23:29)
[2021-08-21] MEDS: SODIUM CHLORIDE 0.9% 1,000 ML IV SCH ×3 (05:07→21:52)
[2021-08-21] MEDS: CEFEPIME 2 GM in SODIUM CHLORIDE 0.9% 100 ML IVPB SCH ×2 (05:09→12:42)
[2021-08-21 05:21] LABS: Glucose,Whole Blood 207 mg/dL (75-99)
[2021-08-21 06:03] LABS: Calcium 7.5 mg/dL (8.4-10.2); Total Bilirubin 1.3 mg/dL (0.2-1.3); Total Protein 6.3 g/dL (6.3-8.2)
[2021-08-21 06:04] LABS: ABG Base Excess -3.9 mmol/L; ABG HCO3 27 mmol/L (21-25); ABG Oxygen Saturation 99.5 % (94-97); ABG PO2 169 mmHg (83-108); ABG TCO2 30 mmol/L (19-24); Allen Test Performed? Yes
[2021-08-21 06:07] LABS: ABG PH 7.05 (7.35-7.45)
[2021-08-21 06:08] LABS: ABG PCO2 96 mmHg (35-45)
[2021-08-21] MEDS ORDERED: DEXTROSE 50% SYRINGE 50 ML IVP ONE (06:23)
[2021-08-21] MEDS ORDERED: INSULIN REGULAR 100 UNIT/ML VIAL (IV) IV ONE ×3 (06:23→22:19)
[2021-08-21] MEDS ORDERED: SODIUM BICARB 8.4% 50 ML SYR (1 MEQ/ML) IV ONE (06:23)
[2021-08-21 06:40] LABS: Basophils # (A) 0.2 k/uL (0-0.2); Basophils % (A) 1 %; Eosinophils % (A) 0 %; HGB 16.5 gm/dL (13.0-17.5); Lymphocytes # (A) 0.4 k/uL (1.0-4.8); Lymphocytes % (A) 1 %; MCH 32.4 pg (25.0-35.0); MCHC 33.1 g/dL (31.0-37.0); Monocytes # (A) 0.8 k/uL (0-1.0); Monocytes % (A) 3 %; Neutrophils # (A) 27.5 k/uL (1.3-7.7); Neutrophils % (A) 94 %; Platelet Count 250 k/uL (150-450); RDW 14.3 % (11.5-15.5); WBC 29.2 k/uL (3.8-10.6)
[2021-08-21] MEDS: ARTIFICIAL TEARS-HYPROMELLOSE DROPS 15 ML BTL BOTH EYES SCH ×7 (06:44→23:30)
[2021-08-21] MEDS: DEXTROSE 5% IN WATER 1,000 ML with SODIUM BICARB (1 MEQ/ML) 150 ML IV ONE ×2 (07:05→20:31)
[2021-08-21] MEDS: ALBUTEROL HFA INHALER INHALATION SCH ×4 (08:26→21:41)
--- NOTE | 2021-08-21 09:07 | XR ---
EXAMINATION TYPE: XR chest 1V portable DATE OF EXAM: 08/21/2021 COMPARISON: Chest x-ray 08/20/2021 HISTORY: Covid 19 infection, intubated TECHNIQUE: Single frontal view of the chest is obtained. FINDINGS: Endotracheal tube, NG tube, left subclavian central venous catheter are present and are st able overlying appropriate positions. There is less confluent attenuation present at the right lung b ase greater than left, interval improvement in visualization of the right hemidiaphragm. No evident p neumothorax or pleural effusion. There are overlying artifacts. Left costophrenic angle not included on exam. IMPRESSION: Some improvement in aeration is noted.
[2021-08-21] MEDS: CHLORHEXIDINE GLUCONATE 15 ML CUP MUCOUS MEM SCH ×2 (09:32→20:11)
[2021-08-21] MEDS: ASCORBIC ACID 500 MG TAB PO SCH (09:32)
[2021-08-21] MEDS: DEXAMETHASONE SOD PHOSPHATE 10 MG/ML 1 ML VIAL IVP SCH ×2 (09:32→20:11)
[2021-08-21] MEDS: ENOXAPARIN 40 MG/0.4 ML SYRINGE SQ SCH ×2 (09:32→20:11)
[2021-08-21] MEDS: ZINC SULFATE 220 MG CAP PO SCH (09:33)
[2021-08-21] MEDS ORDERED: SODIUM CHLORIDE 0.9% 1,000 ML IV ONE (10:21)
--- NOTE | 2021-08-21 10:24 | P.PN ---
Subjective Progress Note Date: 08/21/21 on 2020 on seeing the patient for a follow-up. This is a pleasant 36-year-old male patient with Covid associated pneumonia. The patient was hospitalized for worsening shortness of breath and generalized weakness and muscle aches. He is a nonvaccinated individual. He was on a nonrebreather fa cemask. During the course of his illness, he was placed on Airvo at 60 L were notified to 90% and earlier this morning the patient was transitioned to BiPAP which is currently at the pressure of 15/5 with an FiO2 of 100%. The chest x- ray showing bilateral diffuse pulmonary infiltrates. Doppler of the lower extremity has been negative. The patient has blood work which showed a d-dimer of 30.2. His LDH level was elevated at 1463 and the CRP level is at 12.3. The patient is white cell count of 9.28 with a hemoglobin of 16.4 and a platelet count of 305. Electrodes are within normal limits. The patient was treated with a combination of Decadron 6 mg IV every 24 hours. He is on Lovenox 40 mg subcu twice a day. He is on normal saline at the rate of 75 mL an hour. He is also taking oral zinc and vitamin C. Noted the patient's has not received any other outpatient treatment prior to his hospitalization. He did not receive monoclonal antibodies. He was symptomatic around 9 days prior to him coming to the hospital. The patient is currently on a BiPAP at a pressure of 15/5 cm of w ater with an FiO2 of 100%. The patient was also placed in a prone body positioning which obviously helped him with his oxygenation and the patient's pulse ox is up to 91% On 08/20/2021, the patient is still struggling with his breathing. Is a bit tachypneic and he is absolutely dependent on the BiPAP which is set at a pressure of 16/6 cm of water and FiO2 100%. He is able to generate tidal volume of around above in 1000 and his respiratory rate currently is at 32 as the patient is laying down in a prone body position. The patient is a nonvaccinated individual. He had progressive worsening his oxygenation. He was on a nonrebreather and later on on an Airvo and currently is on a BiPAP. The patient is on Decadron 6 mg IV every 12 hours and the patient is also on Lovenox 40 mg subcu for DVT prophylaxis. He was on Baricitinib that was discontinued. I would suggest putting the patient back on Baricitinib and I have already discussed this with infectious disease. In terms of his inflammatory markers, the patient has a d-dimer of 34 and his LDH level is up to 4263 and his CRP leve l is up to 25.3. No other labs are available. Unfortunately his inflammatory markers are on the rise. In terms of treatment, as mentioned, he is on Decadron 6 mg IV every 12 hours. Lovenox is 40 mg subcu every 12 hours. His Doppler of the lower extremities was done on 08/18/2021 was negative for DVT. The elevation d-dimer along with LDH rise is consistent with worsening of his forward 19 related pneumonia and explained his progressive respiratory failure. Pulmonary embolism is felt to be less likely. We'll repeat the Doppler. 08/21/2021, the patient is intubated on a mechanical ventilator. The patient got intubated yesterday without any major difficulties. We had to utilize low t idal volume high PEEP system to maintain his oxygenation. Immediately postintubation, the patient was sedated with propofol and currently propofol is running at 75 Kingsley respiratory per minute. He is also on fentanyl running at 1 mcg/kg/h. The patient is paralyzed with Nimbex at 1 mg/kg per minute. He is adequately sedated and paralyzed. Post intubation, he was kept on assist control mode at the rate of 36 with a tidal volume of 400 and FiO2 of 100% and a day and currently is at 80% and a PEEP is currently at 24. Blood gases from this morning showed a pH of 7.05 with a pCO2 of 96 and pO2 of 169. Based on that, the FiO2 was up around 80%. I gave the patient a total of 150 mEq of sod ium bicarbonate the patient was started on a bicarb infusion. Note that the potassium level was also elevated. The patient was given D50 insulin and a repeat potassium level is pending for now. Note that he also developed an acute kidney injury. Creatinine is up to 1.75. Overnight, he received a total of 2 L of normal saline and the liver under liter was given making a total of 3 L. His urine output is in the order of 5-10 mL an hour. He has a subclavian triple- lumen catheter in place. The patient remains on Decadron. Baricitinib was discontinued. Based on his post intubation chest x-ray, there was worsening consolidation of the right lower lung and I started him on IV cefepime and blood cultures and sputum cultures were sent. The patient has a white cell count of 29.2 today with a hemoglobin of 16.5, his LDH level was as high as 4263 and currently is down to 3458 and his CRP level is at 26. Pro-Level Is at 0.27. The Patient Is Running a Fever and He Has a Low-Grade Fever of 100.5. Enteral Feeding for Nutritional Support Has Been Not Started yet. Noted the patient was quite hypotensive also and this developed overnight. The patient was as high as 27 g of norepinephrine infusion and this was gradually weaned off to 13 g per minute. His most recent blood pressure is 100/59 with a mean of 73. Objective - Vital Signs Vital signs: Vital Signs Temp 99.5 F 08/21/21 08:00 Pulse 120 H 08/21/21 08:00 Resp 36 H 08/21/21 08:00 BP 119/66 08/20/21 19:00 Pulse Ox 96 08/21/21 08:00 Intake & Output 08/20/21 08/21/21 08/21/21 18:59 06:59 18:59 Intake Total 1999 5406.794 731.374 Output Total 50 1030 5 Balance 1950 4376.794 726.374 Weight 142.6 kg 142.6 kg Intake: IV 2000 4450 400 Cefepime 2gm 250 25 D50 50 Dextrose 5% in Water 1, 75 000 ml @ 75 mls/hr IV . [id number] ONE with Sodium Bicarb (1 Meq/ml) 150 ml Rx#:[id number] Sodium Bicarbonate IVP 150 Sodium Chloride 0.9% 1, 1200 100 000 ml @ 100 mls/hr IV . Q10H [facility] Rx#:[id number] Sodium Chloride 0.9% 2, 2000 3000 000 ml @ 999 mls/hr IV . Q2H1M ONE Rx#:[id number] Intake, IV Titration 956.794 331.374 Amount Cisatracurium 200 mg In 16.194 Sodium Chloride 0.9% 180 ml @ 1 MCG/KG/MIN 8.165 mls/hr IV .Q24H [facility] Rx#: [id number] Norepinephrine 4 mg In 508.000 103.519 Sodium Chloride 0.9% 250 ml @ 0.05 MCG/KG/MIN 25. 923 mls/hr IV .Q9H48M [facility] Rx#:[id number] fentaNYL (PF). 1,000 mcg 32.6 30.9 In Sodium Chloride 0.9% 80 ml @ Per Protocol IV . Q0M [facility] Rx#:[id number] propofoL 1,000 mg In 400 196.955 Empty Bag 1 bag @ Titrate IV .Q0M [facility] Rx#: [id number] Output: Gastric Drainage 600 Urine 50 330 5 Oral Regurgitation 100 Other: Voiding Method Indwelling Catheter # Bowel Movements 2 ABP, PAP, CO, CI - Last Documented Arterial Blood Pressure 120/65 - Exam Morbidly obese, calm and comfortable on a mechanical ventilator. Orotracheal and orogastric tube are both in place. The patient is sedated and paralyzed. HEENT examination is grossly unremarkable. Neck supple. Full range of motion. No adenopathy thyromegaly or neck vein distention. Cardiovascular examination reveals regular rhythm rate. S1-S2 normal. No S3 or S4. No discernible murmur noted. Heart rate 85 bpm. Lungs reveal coarse bilateral breath sounds. Coarse expiratory rhonchi are noted. No wheezes. Basilar crackles appreciated. Breath sounds equal bilaterally. Abdominal exam revealed normal bowel sounds. The abdomen was soft, non-tender, and without masses, organomegaly, or appreciable enlargement of the abdominal aorta. Extremities are intact. No cyanosis clubbing or edema. Examination of the skin revealed no evidence of significant rashes, suspicious appearing nevi or other concerning lesions. Neurologic the patient is currently sedated and paralyzed - Labs CBC & Chem 7: 08/21/21 05:15 08/21/21 06:00 Labs: Abnormal Lab Results - Last 24 Hours (Table) 08/20/21 08/20/21 08/20/21 Range/Units 05:56 15:22 18:17 WBC (3.8-10.6) k/uL D-Dimer (<0.60) mg/L FEU ABG pH 7.23 L (7.35-7.45) ABG pCO2 72 H* (35-45) mmHg ABG pO2 77 L (83-108) mmHg ABG HCO3 30 H (21-25) mmol/L ABG Total CO2 32 H (19-24) mmol/L ABG O2 Saturation 93.3 L (94-97) % Potassium (3.5-5.1) mmol/L BUN (9-20) mg/dL Creatinine (0.66-1.25) mg/dL Glucose (74-99) mg/dL POC Glucose (mg/dL) 134 H (75-99) mg/dL Calcium (8.4-10.2) mg/dL ALT (4-49) U/L Alkaline Phosphatase (38-126) U/L Lactate Dehydrogenase (313-618) U/L C-Reactive Protein (<1.0) mg/dL Albumin (3.5-5.0) g/dL Procalcitonin 0.27 H (0.02-0.09) ng/mL 08/20/21 08/21/21 08/21/21 Range/Units 23:59 05:15 05:15 WBC 29.2 H (3.8-10.6) k/uL D-Dimer >34.10 H (<0.60) mg/L FEU ABG pH (7.35-7.45) ABG pCO2 (35-45) mmHg ABG pO2 (83-108) mmHg ABG HCO3 (21-25) mmol/L ABG Total CO2 (19-24) mmol/L ABG O2 Saturation (94-97) % Potassium (3.5-5.1) mmol/L BUN (9-20) mg/dL Creatinine (0.66-1.25) mg/dL Glucose (74-99) mg/dL POC Glucose (mg/dL) 205 H (75-99) mg/dL Calcium (8.4-10.2) mg/dL ALT (4-49) U/L Alkaline Phosphatase (38-126) U/L Lactate Dehydrogenase (313-618) U/L C-Reactive Protein (<1.0) mg/dL Albumin (3.5-5.0) g/dL Procalcitonin (0.02-0.09) ng/mL 08/21/21 08/21/21 08/21/21 Range/Units 05:20 05:33 06:00 WBC (3.8-10.6) k/uL D-Dimer (<0.60) mg/L FEU ABG pH 7.05 L* (7.35-7.45) ABG pCO2 96 H* (35-45) mmHg ABG pO2 169 H (83-108) mmHg ABG HCO3 27 H (21-25) mmol/L ABG Total CO2 30 H (19-24) mmol/L ABG O2 Saturation 99.5 H (94-97) % Potassium 7.0 H* (3.5-5.1) mmol/L BUN 29 H (9-20) mg/dL Creatinine 1.75 H (0.66-1.25) mg/dL Glucose 206 H (74-99) mg/dL POC Glucose (mg/dL) 207 H (75-99) mg/dL Calcium 7.5 L (8.4-10.2) mg/dL ALT 55 H (4-49) U/L Alkaline Phosphatase 149 H (38-126) U/L Lactate Dehydrogenase 3458 H (313-618) U/L C-Reactive Protein 26.0 H (<1.0) mg/dL Albumin 3.0 L (3.5-5.0) g/dL Procalcitonin (0.02-0.09) ng/mL Microbiology - Last 24 Hours (Table) 08/15/21 16:52 Blood Culture - Preliminary Blood No Growth after 120 hours 08/15/21 16:52 Blood Culture - Preliminary Blood No Growth after 120 hours Assessment and Plan Plan: 1 Acute hypoxemic respiratory failure, secondary to coronavirus associated pneumonia. The patient failed BiPAP therapy and ultimately the patient to be intubated and placed on a mechanical ventilator. A superinfection is also suspected as the patient became profoundly hypo-tensive, developed an acute kidney injury and the patient also developed leukocytosis and acute kidney injury. For now, the patient is intubated on a mechanical ventilator. The patient is sedated and paralyzed. The patient remains on Decadron. Broad- spectrum antibiotics was started in addition to pressors. Chest x-ray was noted. Blood gases was noted the chest x-ray shows improvement in the right lower lobe airspace disease on today's evaluation. 2 Elevated inflammatory markers secondary to coronavirus infection. The inflammatory markers remain quite elevated. Is also elevation of the protest on a level suggestive an underlying bacterial infection 3 acute leukocytosis, likely secondary to underlying sepsis. The patient is hypotensive and hemodynamically unstable on pressors 4 sepsis, received a total of 3 L of IV fluids and still on pressors with norepinephrine running at 50 mg/kg/m 5 permissive hypercapnia and respiratory acidosis 6 acute hyperkalemia 7 acute kidney injury 8 hypotension/sepsis currently on accommodation fluids and pressors and antibiotics. 9 obesity with a BMI of 42.6 Plan Give the patient another bolus of normal saline make an keep at 4 L total Continue maintenance bicarb infusion at the rate of 75 mL an hour bicarb wasn't placed and the patient was given a total of 150 mEq and currently the patient is on a bicarb infusion at the rate of 75 mL an hour Repeat potassium levels Repeated blood gases Continue IV cefepime Wean off pressors Monitor fever pattern Monitor urine output and watch for any development of an further worsening acute kidney injury Continue Decadron Discontinue Baricitinib Initiate enteral feeding for nutritional support, dietary consultation insulin for Coverage Lovenox 40 mg subcu every 12 hours Monitor d-dimer inflammatory markers Continue the rest of the oral multivitamin supplements Condition is obviously critical continue to follow we'll and make further recommendations based on patient's progress. Condition is obviously critical. The patient is currently in intensive care unit. Sedated and paralyzed. We'll continue to follow make further recommendations based on his progress. This is a critically care evaluation was done and more than 30 minutes. Time with Patient: Greater than 30
[2021-08-21 10:51] LABS: ABG HCO3 30 mmol/L (21-25); ABG Oxygen Saturation 97.3 % (94-97); ABG PO2 93 mmHg (83-108); ABG TCO2 33 mmol/L (19-24)
[2021-08-21] MEDS ORDERED: SODIUM BICARB 8.4% 50 ML SYR (1 MEQ/ML) IV STA ×3 (10:52→22:20)
[2021-08-21 10:53] LABS: ABG PCO2 95 mmHg (35-45); Allen Test Performed? no
[2021-08-21 11:32] LABS: Glucose,Whole Blood 198 mg/dL (75-99)
[2021-08-21 12:04] LABS: Calcium 7.2 mg/dL (8.4-10.2)
[2021-08-21 12:09] LABS: Potassium 6.8 mmol/L (3.5-5.1)
[2021-08-21] MEDS ORDERED: DEXTROSE 50% SYRINGE 50 ML IVP STA ×2 (12:19→22:25)
[2021-08-21] MEDS ORDERED: CALCIUM GLUCONATE 1 GM in SODIUM CHLORIDE 0.9% 100 ML IVPB ONE ×2 (12:21→22:30)
[2021-08-21] MEDS: INSULIN ASPART (NovoLOG) 100 UNIT/ML VIAL SQ SCH ×2 (13:14→20:08)
[2021-08-21] MEDS: ACETAMINOPHEN TAB 325 MG TAB PO PRN (16:39)
[2021-08-21 18:37] LABS: Glucose,Whole Blood 207 mg/dL (75-99)
[2021-08-21] MEDS: CISATRACURIUM 200 MG in SODIUM CHLORIDE 0.9% 180 ML IV SCH (20:08)
--- NOTE | 2021-08-21 20:13 | PN ---
PROGRESS NOTE DATE OF SERVICE: 08/21/2021 This 36-year-old gentleman with a past medical history of multiple medical problems was admitted with acute COVID-19 infection with COVID-19 bilateral interstitial pneumonia. The patient also had possible gastrointestinal involvement of the COVID-19. The patient was monitored on the floor, but yesterday the patient took a turn for the worse. The patient was not tolerating BiPAP well. The patient was mechanically intubated. Patient is being closely monitored. Dr. Cortez is following the patient closely. The patient is on baricitinib also. The most recent chest x-ray which was reviewed personally by me showed significant bilateral interstitial pulmonary infiltrate highly suggestive of COVID-19 pneumonia. The patient is being closely monitored at this time. The patient had significant acidosis as well. There is also some hyperkalemia and worsening renal failure. Inflammatory markers of COVID-19 are also elevated. Procalcitonin is 4.71. The patient was started on cefepime, also. Past medical history reviewed. Review of systems could not be taken; the patient is mechanically sedated. CURRENT MEDICATIONS: Reviewed. They include Tylenol, Ventolin, Artificial Tears, vitamin C, cefepime, sedatives and Lovenox. The rest of the medications and doses are reviewed. PHYSICAL EXAMINATION: Patient is mechanically ventilated and sedated. Pulse is 135, blood pressure 119/66, respiration 30, temperature normal, pulse ox 92% on 100% mechanical ventilation. HEENT: Conjunctivae normal. NECK: No jugular venous distention. CARDIOVASCULAR: S1, S2 muffled. RESPIRATION: Breath sounds diminished at the bases. Bilateral scattered rhonchi and crackles. Expiratory wheezing also present. ABDOMEN: Soft, obese. LEGS: No edema. No swelling. NERVOUS SYSTEM: No focal deficit. LABS AT THIS TIME: WBC 29.2. D-dimer is more than 34.1. Sodium 141, potassium 6.8, creatinine is 2.33. ASSESSMENT: 1. Acute COVID-19 infection with acute COVID-19 bilateral interstitial pneumonia with acute hypoxic respiratory failure. 2. Hypovolemic hyponatremia. 3. Possible acute sepsis secondary to superadded bacterial pneumonia. 4. Elevated inflammatory markers of COVID-19 infection. 5. Acute renal failure with acute tubular necrosis. 6. Obesity with body mass index of 40.7. 7. Elevated D-dimer without any evidence of deep vein thrombosis. 8. Elevated AST, ALT. 9. Elevated CRP, LDH. 10.Severe acute respiratory acidosis. 11.Elevated D-dimer. RECOMMENDATIONS AND DISCUSSION: In this 36-year-old gentleman who was admitted with significant COVID-19 pneumonia and interstitial pneumonia and hypoxia has taken a turn for the worse. The patient was transferred to ICU and is mechanically ventilated at this time. The patient, as mentioned earlier, had multiple complications of COVID-19 involving multiple systems. The ultrasound was negative for DVT. The initial CT angio is not available. The prognosis is extremely guarded because of the multiple complex medical issues. Further recommendations to follow. I would also recommend nephrology evaluation in addition to pulmonary, infectious disease and critical care management. Prognosis is guarded. Further recommendations to follow. FREDERICK / CONGN: [id number] / MTDD
[2021-08-21] MEDS ORDERED: FUROSEMIDE 10 MG/ML 10 ML VIAL IV STA (22:25)
[2021-08-21] MEDS ORDERED: SODIUM POLYSTYRENE SULFONATE 15 GM/60 ML BOTTLE PO STA (22:26)
--- NOTE | 2021-08-21 22:46 | PN ---
PROGRESS NOTE DATE OF SERVICE: 08/21/2021 REASON FOR FOLLOWUP: Pneumonia. INTERVAL COURSE: History the patient did spike another fever this evening of 101 degrees Fahrenheit. The patient is currently on pressor support. FiO2 is 80%. No significant purulent secretions through the ET or any other changes reported by the nursing staff. PHYSICAL EXAMINATION: Blood pressure is 93/54. Pulse of temperature 101. He is 92% on 80% FiO2. General description is a middle-aged male intubated on the vent. Respiratory system: Unlabored breathing, decreased intensity of breath sounds. No wheeze. Heart S1, S2. Regular rate and rhythm. Abdomen soft, no tenderness. Extremities: No edema of the feet. LABS: Hemoglobin is 16.5, white count 9.2, BUN of 24, creatinine is 2.33. DIAGNOSTIC IMPRESSION AND PLAN: Patient with acute respiratory failure, multifactorial. This patient did have a COVID- 19 pneumonia, subsequent worsening of his respiratory status requiring intubation, now with a new fever. Cultures will be repeated. Antibiotic adjusted to Zosyn to cover for possible aspiration pneumonia and adjust antibiotic further on the basis of clinical response and cultures. Continue supportive care. MMODL / IJN: [id number] /
[2021-08-21] MEDS: PIPERACILLIN-TAZOBACTAM 3.375 GM in SODIUM CHLORIDE 0.9% 100 ML IVPB SCH (23:40)
[2021-08-21 23:59] LABS: Glucose,Whole Blood 174 mg/dL (75-99)
[2021-08-22] MEDS: INSULIN ASPART (NovoLOG) 100 UNIT/ML VIAL SQ SCH ×5 (00:03→23:30)
[2021-08-22] MEDS ORDERED: CEFEPIME 2 GM in SODIUM CHLORIDE 0.9% 100 ML IVPB SCH (01:00)
[2021-08-22] MEDS: ACETAMINOPHEN TAB 325 MG TAB PO PRN ×3 (02:39→23:38)
[2021-08-22] MEDS ORDERED: DEXTROSE 5% IN WATER 1,000 ML with SOD BICARB SYR 8.4% (1 MEQ/ML) 150 ML IV SCH (03:00)
[2021-08-22] MEDS: fentaNYL (PF) 2,500 MCG in SODIUM CHLORIDE 0.9% 200 ML IV SCH ×2 (03:06→21:39)
[2021-08-22] MEDS: ARTIFICIAL TEARS-HYPROMELLOSE DROPS 15 ML BTL BOTH EYES SCH ×6 (04:05→23:31)
[2021-08-22] MEDS ORDERED: DEXTROSE 50% SYRINGE 50 ML IVP ONE (04:30)
[2021-08-22] MEDS ORDERED: INSULIN REGULAR 100 UNIT/ML VIAL (IV) IV ONE (04:30)
[2021-08-22] MEDS ORDERED: SODIUM BICARB 8.4% 50 ML SYR (1 MEQ/ML) IV ONE (04:30)
[2021-08-22] MEDS ORDERED: CALCIUM GLUCONATE 1 GM in SODIUM CHLORIDE 0.9% 100 ML IVPB ONE (04:40)
[2021-08-22] MEDS ORDERED: AMIODARONE IN DEXTROSE,ISO-OSM 360 MG/200 ML PLAST..BAG IV ONE (04:45)
[2021-08-22] MEDS ORDERED: AMIODARONE IN DEXTROSE,ISO-OSM 150 MG/100 ML PLAST..BAG IV ONE (04:45)
[2021-08-22] MEDS ORDERED: DEXTROSE 5% IN WATER 100 ML with AMIODARONE 150 MG IV ONE (04:45)
[2021-08-22] MEDS: NOREPINEPHRINE 4 MG in SODIUM CHLORIDE 0.9% 250 ML IV SCH (04:46)
[2021-08-22] MEDS: CISATRACURIUM 200 MG in SODIUM CHLORIDE 0.9% 180 ML IV SCH (04:47)
[2021-08-22] MEDS ORDERED: AMIODARONE 360 MG in DEXTROSE 5% IN WATER 200 ML IV ONE ×2 (05:00)
[2021-08-22 05:50] LABS: Glucose,Whole Blood 147 mg/dL (75-99)
[2021-08-22 05:51] LABS: ABG Base Excess 8.4 mmol/L; ABG HCO3 36 mmol/L (21-25); ABG Oxygen Saturation 87.3 % (94-97); ABG PH 7.21 (7.35-7.45); ABG TCO2 39 mmol/L (19-24)
[2021-08-22 05:56] LABS: ABG PCO2 90 mmHg (35-45); ABG PO2 53 mmHg (83-108); Allen Test Performed? no
[2021-08-22 06:12] LABS: HCT 43.5 % (39.0-53.0); Hypochromasia Slight; MCH 30.7 pg (25.0-35.0); MCHC 31.1 g/dL (31.0-37.0); MCV 98.8 fL (80.0-100.0); Mean Platelet Volume 8.6; Platelet Count 218 k/uL (150-450); RDW 13.9 % (11.5-15.5); WBC 24.7 k/uL (3.8-10.6)
[2021-08-22 06:52] LABS: HGB 13.5 gm/dL (13.0-17.5)
[2021-08-22 06:55] LABS: Albumin 2.4 g/dL (3.5-5.0); Calcium 6.9 mg/dL (8.4-10.2); Potassium 5.7 mmol/L (3.5-5.1); Total Protein 5.3 g/dL (6.3-8.2)
--- NOTE | 2021-08-22 08:07 | XR ---
EXAMINATION TYPE: XR chest 1V portable DATE OF EXAM: 08/22/2021 CLINICAL HISTORY: Difficulty breathing progress study. COVID 19. TECHNIQUE: Single AP portable semiupright view of the chest is obtained. COMPARISON: Chest x-ray from one day earlier and older studies. FINDINGS: Stable endotracheal and orogastric tubes. Stable left-sided subclavian central venous cath eter. New Marked subcutaneous emphysema and pneumomediastinum. Persistent bilateral multifocal and confluen t opacities show more prominence from one day earlier. Cardiac silhouette size stable and within norm al limits. No definitive pneumothorax. Osseous structures are intact. IMPRESSION: 1. New extensive subcutaneous emphysema and new pneumomediastinum. No definitive new pneumothorax. 2. Worsening bilateral multifocal and confluent opacities consistent with covid-19 infection progress ion and/or developing ARDS. A Yellow level critical message alert has been initiated for Jennifer Garduno MD via the [employer] Critical Results System on 08/22/2021 8:04 AM. This message alert has been sent to Jennifer Garduno MD via the preferences provided by the clinician for the receipt of Radiology Critical Findings. [employer] e ID [id number].
[2021-08-22] MEDS: DEXAMETHASONE SOD PHOSPHATE 10 MG/ML 1 ML VIAL IVP SCH ×2 (08:30→21:38)
[2021-08-22] MEDS: PANTOPRAZOLE 40 MG/10 ML VIAL IVP SCH (08:30)
[2021-08-22] MEDS: PIPERACILLIN-TAZOBACTAM 3.375 GM in SODIUM CHLORIDE 0.9% 100 ML IVPB SCH ×3 (08:30→23:30)
[2021-08-22] MEDS: ASCORBIC ACID 500 MG TAB PO SCH (08:31)
[2021-08-22] MEDS: CHLORHEXIDINE GLUCONATE 15 ML CUP MUCOUS MEM SCH ×2 (08:31→21:38)
[2021-08-22] MEDS: ZINC SULFATE 220 MG CAP PO SCH (08:31)
[2021-08-22] MEDS: ALBUTEROL HFA INHALER INHALATION SCH ×4 (08:49→21:01)
--- NOTE | 2021-08-22 08:53 | P.NPCON ---
History of Present Illness - Reason for Consult acute renal failure - History of Present Illness Reason for consultation: Acute kidney injury and hyperkalemia History of present illness: Patient is a 36-year-old male seen in renal consultation for acute kidney injury and hyperkalemia. Patient's baseline creatinine is near 1 and is elevated at 5.28 today. Patient is oliguric. Potassium level yesterday was 7.0 and has been medically treated multiple times. It was 5.7 this morning. Patient presented to the hospital initially on 08/15/2021 with shortness of breath and a nonproductive cough. He was also having fever prior to admission. He tested positive for over 19 infection. He is on vaccinated. Patient's dyspnea progressively got worse and was subsequently intubated. He is currently in the ICU. He is on 80% FiO2. Patient went into A. fib with RVR and was cardioverted 3 times last night. He remains in A. fib. He is receiving tube feeds. Vital signs - on vasopressor support. In A. fib. HEENT: Intubated. HEART: Irregular rate and rhythm. ABDOMEN: Obese. EXTREMITITES: No gross edema noted. Past Medical History Past Medical History: No Reported History History of Any Multi-Drug Resistant Organisms: None Reported Past Surgical History: No Surgical Hx Reported Past Anesthesia/Blood Transfusion Reactions: No Reported Reaction Past Psychological History: No Psychological Hx Reported Smoking Status: Never smoker Past Alcohol Use History: Occasional Past Drug Use History: None Reported Medications and Allergies Home Medications Medication Instructions Recorded Confirmed Type Testosterone Cypionate 200 mg IM Q14D 08/15/21 08/15/21 History [Depo-Testosterone] Allergies Allergy/AdvReac Type Severity Reaction Status Date / Time No Known Allergies Allergy Verified 08/15/21 17:15 Physical Exam Vitals: Vital Signs Temp Pulse Resp BP Pulse Ox 08/22/21 07:00 126 H 36 H 89 L 08/22/21 06:45 126 H 36 H 89 L 08/22/21 06:30 126 H 36 H 88 L 08/22/21 06:15 126 H 36 H 88 L 08/22/21 06:00 126 H 36 H 86 L 08/22/21 05:45 128 H 36 H 87 L 08/22/21 05:30 130 H 36 H 88 L 08/22/21 05:15 131 H 36 H 88 L 08/22/21 05:00 134 H 36 H 88 L 08/22/21 04:45 137 H 36 H 88 L 08/22/21 04:30 134 H 36 H 89 L 08/22/21 04:15 134 H 36 H 88 L 08/22/21 04:00 100.4 F H 134 H 36 H 88 L 08/22/21 03:45 135 H 36 H 88 L 08/22/21 03:30 134 H 36 H 88 L 08/22/21 03:15 135 H 36 H 89 L 08/22/21 03:00 135 H 36 H 89 L 08/22/21 02:45 134 H 36 H 89 L 08/22/21 02:30 101.4 F H 135 H 36 H 89 L 08/22/21 02:15 135 H 36 H 89 L 08/22/21 02:00 137 H 36 H 89 L 08/22/21 01:45 134 H 36 H 89 L 08/22/21 01:30 134 H 36 H 89 L 08/22/21 01:15 133 H 36 H 89 L 08/22/21 01:00 134 H 36 H 89 L 08/22/21 00:45 135 H 36 H 89 L 08/22/21 00:30 137 H 29 H 89 L 08/22/21 00:15 135 H 36 H 88 L 08/22/21 00:07 134 H 36 H 88 L 08/22/21 00:00 99.6 F 134 H 35 H 88 L 08/21/21 23:45 135 H 35 H 88 L 08/21/21 23:30 137 H 36 H 89 L 08/21/21 23:15 133 H 16 89 L 08/21/21 23:00 134 H 8 L 89 L 08/21/21 22:45 134 H 36 H 89 L 08/21/21 22:30 133 H 36 H 89 L 08/21/21 22:15 133 H 36 H 89 L 08/21/21 22:00 133 H 34 H 90 L 08/21/21 21:45 133 H 39 H 90 L 08/21/21 21:30 134 H 36 H 92 L 08/21/21 21:15 134 H 36 H 92 L 08/21/21 21:00 137 H 36 H 92 L 08/21/21 20:45 135 H 36 H 91 L 08/21/21 20:30 135 H 36 H 92 L 08/21/21 20:15 129 H 29 H 91 L 08/21/21 20:00 101 F H 134 H 36 H 92 L 08/21/21 19:45 133 H 36 H 119/66 92 L 08/21/21 19:30 134 H 36 H 119/66 92 L 08/21/21 19:15 135 H 36 H 119/66 92 L 08/21/21 19:00 135 H 36 H 119/66 92 L 08/21/21 18:00 99.0 F 135 H 35 H 119/66 92 L 08/21/21 17:00 135 H 36 H 119/66 92 L 08/21/21 16:00 135 H 36 H 119/66 93 L 08/21/21 15:00 134 H 36 H 119/66 94 L 08/21/21 14:00 100.8 F H 135 H 36 H 119/66 94 L 08/21/21 13:00 130 H 28 H 119/66 94 L 08/21/21 12:00 130 H 36 H 119/66 95 08/21/21 11:00 100.5 F H 129 H 20 119/66 95 08/21/21 10:00 100.2 F H 128 H 17 119/66 95 08/21/21 09:00 124 H 36 H 119/66 95 Intake and Output 08/21/21 08/22/21 08/22/21 22:59 06:59 14:59 Intake Total 2129.201 2786.621 342.885 Output Total 10 3 0 Balance 2119.201 2783.621 342.885 Intake: IV 609 624 78 ART line 9 24 3 Dextrose 5% in Water 1, 600 600 75 000 ml @ 75 mls/hr IV . [id number] ONE with Sodium Bicarb (1 Meq/ml) 150 ml Rx#:[id number] Intake, IV Titration 4165.850 4794.621 257.885 Amount Calcium Gluconate 1 gm In 100 Sodium Chloride 0.9% 100 ml @ 100 mls/hr IVPB ONCE ONE Rx#:[id number] Calcium Gluconate 1 gm In 100 Sodium Chloride 0.9% 100 ml @ 400 mls/hr IVPB ONCE ONE Rx#:[id number] Cisatracurium 200 mg In 190.789 70.627 Sodium Chloride 0.9% 180 ml @ 1 MCG/KG/MIN 8.165 mls/hr IV .Q24H RACHEL Rx#: [id number] Norepinephrine 4 mg In 214.812 379.295 Sodium Chloride 0.9% 250 ml @ 0.05 MCG/KG/MIN 25. 923 mls/hr IV .Q9H48M RACHEL Rx#:[id number] Piperacillin-Tazobactam 3 100 .375 gm In Sodium Chloride 0.9% 100 ml @ 25 mls/hr IVPB Q8HR RACHEL Rx# :[id number] Sodium Chloride 0.9% 1, 600 600 75 000 ml @ 75 mls/hr IV . [id number] RACHEL Rx#:[id number] fentaNYL (PF). 1,000 mcg 82.6 34.35 In Sodium Chloride 0.9% 80 ml @ Per Protocol IV . Q0M RACHEL Rx#:[id number] propofoL 1,000 mg In 200 482.349 182.885 Empty Bag 1 bag @ Titrate IV .Q0M RACHEL Rx#: [id number] Tube Feeding 112 56 7 Other 120 240 Output: Urine 10 3 0 Other: Voiding Method Indwelling Catheter Indwelling Catheter Weight 150 kg ABP, PAP, CO, CI - Last 8 Hours Arterial Blood Pressure 100/48 Arterial Blood Pressure 100/48 Arterial Blood Pressure 100/48 Arterial Blood Pressure 99/48 Arterial Blood Pressure 100/48 Arterial Blood Pressure 104/54 Arterial Blood Pressure 106/54 Arterial Blood Pressure 106/54 Arterial Blood Pressure 93/48 Arterial Blood Pressure 99/50 Arterial Blood Pressure 100/48 Arterial Blood Pressure 100/50 Arterial Blood Pressure 102/51 Arterial Blood Pressure 98/50 Arterial Blood Pressure 103/51 Arterial Blood Pressure 100/50 Arterial Blood Pressure 97/50 Arterial Blood Pressure 98/50 Arterial Blood Pressure 98/50 Arterial Blood Pressure 98/49 Arterial Blood Pressure 104/51 Arterial Blood Pressure 102/50 Arterial Blood Pressure 100/49 Arterial Blood Pressure 102/49 Arterial Blood Pressure 101/47 Arterial Blood Pressure 99/46 Results - Lab Results Most recent lab results ABG pH 7.21 (7.35-7.45) L 08/22/21 05:50 ABG pCO2 90 mmHg (35-45) H* 08/22/21 05:50 ABG pO2 53 mmHg (83-108) L* 08/22/21 05:50 ABG HCO3 36 mmol/L (21-25) H 08/22/21 05:50 ABG O2 Saturation 87.3 % (94-97) L 08/22/21 05:50 Calcium 6.9 mg/dL (8.4-10.2) L 08/22/21 06:00 Magnesium 2.2 mg/dL (1.6-2.3) 08/16/21 08:31 08/22/21 06:00 08/22/21 06:00 Assessment and Plan Plan: Assessment: 1. Acute kidney injury secondary to ATN secondary to septic shock. Baseline creatinine near 1 and is up to 5.28 today. Oliguric. 2. Acute hypoxic and hypercapnic respiratory failure secondary to quit 19 pneumonia. Intubated. 3. Septic shock secondary to COVID-19 infection on vasopressor support. 4. Hyperkalemia secondary to acute kidney injury, oliguric. 5. A. fib with RVR maintained on amiodarone drip. Status post cardioversion last night. Plan: Stop bicarb drip. Maintain normal saline. Maintain tube feeds. With worsening renal failure, oliguria and persistent hyperkalemia, initiated renal replacement therapy. Plan for first treatment of hemodialysis today and second treatment tomorrow. Consult vascular surgery for dialysis catheter placement. Wean FiO2 and vasopressors. Check phosphorus level. Thank you for the consultation. I will continue to follow the patient with you during his hospital stay.
--- NOTE | 2021-08-22 09:59 | P.PN ---
Subjective Progress Note Date: 08/22/21 on 2020 on seeing the patient for a follow-up. This is a pleasant 36-year-old male patient with Covid associated pneumonia. The patient was hospitalized for worsening shortness of breath and generalized weakness and muscle aches. He is a nonvaccinated individual. He was on a nonrebreather fa cemask. During the course of his illness, he was placed on Airvo at 60 L were notified to 90% and earlier this morning the patient was transitioned to BiPAP which is currently at the pressure of 15/5 with an FiO2 of 100%. The chest x- ray showing bilateral diffuse pulmonary infiltrates. Doppler of the lower extremity has been negative. The patient has blood work which showed a d-dimer of 30.2. His LDH level was elevated at 1463 and the CRP level is at 12.3. The patient is white cell count of 9.28 with a hemoglobin of 16.4 and a platelet count of 305. Electrodes are within normal limits. The patient was treated with a combination of Decadron 6 mg IV every 24 hours. He is on Lovenox 40 mg subcu twice a day. He is on normal saline at the rate of 75 mL an hour. He is also taking oral zinc and vitamin C. Noted the patient's has not received any other outpatient treatment prior to his hospitalization. He did not receive monoclonal antibodies. He was symptomatic around 9 days prior to him coming to the hospital. The patient is currently on a BiPAP at a pressure of 15/5 cm of w ater with an FiO2 of 100%. The patient was also placed in a prone body positioning which obviously helped him with his oxygenation and the patient's pulse ox is up to 91% On 08/20/2021, the patient is still struggling with his breathing. Is a bit tachypneic and he is absolutely dependent on the BiPAP which is set at a pressure of 16/6 cm of water and FiO2 100%. He is able to generate tidal volume of around above in 1000 and his respiratory rate currently is at 32 as the patient is laying down in a prone body position. The patient is a nonvaccinated individual. He had progressive worsening his oxygenation. He was on a nonrebreather and later on on an Airvo and currently is on a BiPAP. The patient is on Decadron 6 mg IV every 12 hours and the patient is also on Lovenox 40 mg subcu for DVT prophylaxis. He was on Baricitinib that was discontinued. I would suggest putting the patient back on Baricitinib and I have already discussed this with infectious disease. In terms of his inflammatory markers, the patient has a d-dimer of 34 and his LDH level is up to 4263 and his CRP leve l is up to 25.3. No other labs are available. Unfortunately his inflammatory markers are on the rise. In terms of treatment, as mentioned, he is on Decadron 6 mg IV every 12 hours. Lovenox is 40 mg subcu every 12 hours. His Doppler of the lower extremities was done on 08/18/2021 was negative for DVT. The elevation d-dimer along with LDH rise is consistent with worsening of his forward 19 related pneumonia and explained his progressive respiratory failure. Pulmonary embolism is felt to be less likely. We'll repeat the Doppler. 08/21/2021, the patient is intubated on a mechanical ventilator. The patient got intubated yesterday without any major difficulties. We had to utilize low t idal volume high PEEP system to maintain his oxygenation. Immediately postintubation, the patient was sedated with propofol and currently propofol is running at 75 Kingsley respiratory per minute. He is also on fentanyl running at 1 mcg/kg/h. The patient is paralyzed with Nimbex at 1 mg/kg per minute. He is adequately sedated and paralyzed. Post intubation, he was kept on assist control mode at the rate of 36 with a tidal volume of 400 and FiO2 of 100% and a day and currently is at 80% and a PEEP is currently at 24. Blood gases from this morning showed a pH of 7.05 with a pCO2 of 96 and pO2 of 169. Based on that, the FiO2 was up around 80%. I gave the patient a total of 150 mEq of sod ium bicarbonate the patient was started on a bicarb infusion. Note that the potassium level was also elevated. The patient was given D50 insulin and a repeat potassium level is pending for now. Note that he also developed an acute kidney injury. Creatinine is up to 1.75. Overnight, he received a total of 2 L of normal saline and the liver under liter was given making a total of 3 L. His urine output is in the order of 5-10 mL an hour. He has a subclavian triple- lumen catheter in place. The patient remains on Decadron. Baricitinib was discontinued. Based on his post intubation chest x-ray, there was worsening consolidation of the right lower lung and I started him on IV cefepime and blood cultures and sputum cultures were sent. The patient has a white cell count of 29.2 today with a hemoglobin of 16.5, his LDH level was as high as 4263 and currently is down to 3458 and his CRP level is at 26. Pro-Level Is at 0.27. The Patient Is Running a Fever and He Has a Low-Grade Fever of 100.5. Enteral Feeding for Nutritional Support Has Been Not Started yet. Noted the patient was quite hypotensive also and this developed overnight. The patient was as high as 27 g of norepinephrine infusion and this was gradually weaned off to 13 g per minute. His most recent blood pressure is 100/59 with a mean of 73. 08/22/2021, the patient's condition is more critical and worse compared to yesterday. The patient this morning remains intubated on a mechanical ventilator. His sedated and is currently on propofol running at 75 mcg/kg per minute and fentanyl is running at 1.5 mcg/kg/h. The patient is also completed paralyzed with Nimbex at 1.5 mg/kg/m. He is very much success with the mechanical ventilator. He remains on assist control mode at the rate of 36, tidal volume of 400, FiO2 of 80% and a PEEP of 24. The peak airway pressure is 43. Noted the patient has a inspiratory pause of 0.2 seconds and he is on a inverse ratio 1.2-1. Gases from today shows a pH of 7.049 with a pCO2 of 96 and pO2 169. Peak airway pressure was 43 with a static airway pressure of 37. Ch est x-ray showing worsening in the bilateral pulmonary infiltrates with worsening consolidation lung bases bilaterally especially in the right. The patient also has developed subcutaneous emphysema and pneumomediastinum. There is no evidence of any pneumothorax at this point in time. No significant orotracheal secretions. I was hoping this patient with some bicarb infusion based on his underlying permissive hypercapnia respiratory acidosis. Bicarb infusion was running at the rate of 75 mL an hour. This was discontinued by nephrology and I would like to return back again as the patient is significantly acidotic at this point. At the same time, the patient is febrile. Pro- calcitonin level is elevated. He was started on IV Zosyn as an empiric antibiotic coverage. ID is on the case. He remains on Decadron for his community related pneumonia. His inflammatory markers today continued to be significantly elevated. His LDH level currently is at 3458 and the CRP level is at 26. Hemodynamically, the patient is still requiring pressors. He is currently running on norepinephrine at 0.11 g/kg per minute. Overnight, the patient had several runs of SVT. He required cardioversion as the patient became quite significantly hemodynamically unstable. Note that he had to be cardioverted on 3 different occasions. Ultimately was given amiodarone bolus and currently is on amiodarone at 1 mg per minute. Cardiac rhythm is currently in sinus tachycardia. He has also developed worsening renal functions. Creatinine is up to 5.28. Serum bicarb is at 36. Urine output is in order of 0 mL an hour. The patient is receiving enteral feeding for nutritional support. Currently is on vital AF at the rate of 70 mL an hour which is currently at goal. Rest of the blood work shows a white cell count 24.7 with a hemoglobin of 13.5. Objective - Vital Signs Vital signs: Vital Signs Temp 100.4 F H 08/22/21 04:00 Pulse 126 H 08/22/21 07:00 Resp 36 H 08/22/21 07:00 BP 119/66 08/21/21 19:45 Pulse Ox 89 L 08/22/21 07:00 Intake & Output 08/21/21 08/22/21 08/22/21 18:59 06:59 18:59 Intake Total 4322.855 4131.822 342.885 Output Total 270 8 0 Balance 4052.855 4123.822 342.885 Weight 142.6 kg 150 kg Intake: IV 1625 933 78 ART line 33 3 Cefepime 2gm 125 D50 50 Dextrose 5% in Water 1, 900 900 75 000 ml @ 75 mls/hr IV . [id number] ONE with Sodium Bicarb (1 Meq/ml) 150 ml Rx#:[id number] Sodium Bicarbonate IVP 250 Sodium Chloride 0.9% 1, 300 000 ml @ 100 mls/hr IV . Q10H [facility] Rx#:[id number] Intake, IV Titration 2606.855 2754.822 257.885 Amount Calcium Gluconate 1 gm In 100 100 Sodium Chloride 0.9% 100 ml @ 100 mls/hr IVPB ONCE ONE Rx#:[id number] Calcium Gluconate 1 gm In 100 Sodium Chloride 0.9% 100 ml @ 400 mls/hr IVPB ONCE ONE Rx#:[id number] Cefepime 2 gm In Sodium 100 Chloride 0.9% 100 ml @ 25 mls/hr IVPB Q12H [facility] Rx# :[id number] Cisatracurium 200 mg In 261.416 Sodium Chloride 0.9% 180 ml @ 1 MCG/KG/MIN 8.165 mls/hr IV .Q24H [facility] Rx#: [id number] Norepinephrine 4 mg In 254.000 594.107 Sodium Chloride 0.9% 250 ml @ 0.05 MCG/KG/MIN 25. 923 mls/hr IV .Q9H48M [facility] Rx#:[id number] Piperacillin-Tazobactam 3 100 .375 gm In Sodium Chloride 0.9% 100 ml @ 25 mls/hr IVPB Q8HR [facility] Rx# :[id number] Sodium Chloride 0.9% 1, 525 900 75 000 ml @ 75 mls/hr IV . [id number] [facility] Rx#:[id number] Sodium Chloride 0.9% 1, 1000 000 ml @ 999 mls/hr IV . Q1H1M ONE Rx#:[id number] fentaNYL (PF). 1,000 mcg 30.9 116.95 In Sodium Chloride 0.9% 80 ml @ Per Protocol IV . Q0M [facility] Rx#:[id number] propofoL 1,000 mg In 596.955 582.349 182.885 Empty Bag 1 bag @ Titrate IV .Q0M [facility] Rx#: [id number] Tube Feeding 91 84 7 Other 360 Output: Gastric Drainage 200 Urine 70 8 0 Other: Voiding Method Indwelling Catheter Indwelling Catheter ABP, PAP, CO, CI - Last Documented Arterial Blood Pressure 100/48 - Exam Morbidly obese, calm and comfortable on a mechanical ventilator. Orotracheal and orogastric tube are both in place. The patient is sedated and paralyzed. Other the patient has developed some subcutaneous edema and this is easily palpable on his neck area and anterior chest bilaterally. He is sedated and paralyzed on his palm and comfortable and suggested a mechanical ventilator. Calm and comfortable and synchronous with the mechanical ventilator. Head exam was generally normal. There was no scleral icterus or corneal arcus. Mucous membranes were moist. HEENT examination is grossly unremarkable. Neck supple. Full range of motion. No adenopathy thyromegaly or neck vein distention. Cardiovascular examination reveals regular rhythm rate. S1-S2 normal. No S3 or S4. No discernible murmur noted. Heart rate 85 bpm. Lungs reveal coarse bilateral breath sounds. Coarse expiratory rhonchi are noted. No wheezes. Basilar crackles appreciated. Breath sounds equal bilaterally. Evidence of subcutaneous emphysema over the anterior chest Abdominal exam revealed normal bowel sounds. The abdomen was soft, non-tender, and without masses, organomegaly, or appreciable enlargement of the abdominal aorta. Extremities are intact. No cyanosis clubbing and there is some increased edema in lower extremity is bilaterally Examination of the skin revealed no evidence of significant rashes, suspicious appearing nevi or other concerning lesions. Neurologic the patient is currently sedated and paralyzed - Labs CBC & Chem 7: 08/22/21 06:00 08/22/21 06:00 Labs: Abnormal Lab Results - Last 24 Hours (Table) 08/21/21 08/21/21 08/21/21 Range/Units 05:15 06:00 10:15 WBC (3.8-10.6) k/uL Neutrophils # 27.5 H (1.3-7.7) k/uL Lymphocytes # 0.4 L (1.0-4.8) k/uL ABG pH (7.35-7.45) ABG pCO2 (35-45) mmHg ABG pO2 (83-108) mmHg ABG HCO3 (21-25) mmol/L ABG Total CO2 (19-24) mmol/L ABG O2 Saturation (94-97) % Potassium 6.8 H* (3.5-5.1) mmol/L Carbon Dioxide (22-30) mmol/L BUN 34 H (9-20) mg/dL Creatinine 2.33 H (0.66-1.25) mg/dL Glucose 226 H (74-99) mg/dL POC Glucose (mg/dL) (75-99) mg/dL Calcium 7.2 L (8.4-10.2) mg/dL Total Protein (6.3-8.2) g/dL Albumin (3.5-5.0) g/dL Procalcitonin 4.71 H (0.02-0.09) ng/mL 08/21/21 08/21/21 08/21/21 Range/Units 10:49 11:31 18:36 WBC (3.8-10.6) k/uL Neutrophils # (1.3-7.7) k/uL Lymphocytes # (1.0-4.8) k/uL ABG pH 7.10 L* (7.35-7.45) ABG pCO2 95 H* (35-45) mmHg ABG pO2 (83-108) mmHg ABG HCO3 30 H (21-25) mmol/L ABG Total CO2 33 H (19-24) mmol/L ABG O2 Saturation 97.3 H (94-97) % Potassium (3.5-5.1) mmol/L Carbon Dioxide (22-30) mmol/L BUN (9-20) mg/dL Creatinine (0.66-1.25) mg/dL Glucose (74-99) mg/dL POC Glucose (mg/dL) 198 H 207 H (75-99) mg/dL Calcium (8.4-10.2) mg/dL Total Protein (6.3-8.2) g/dL Albumin (3.5-5.0) g/dL Procalcitonin (0.02-0.09) ng/mL 08/21/21 08/21/21 08/22/21 Range/Units 21:10 23:58 02:26 WBC (3.8-10.6) k/uL Neutrophils # (1.3-7.7) k/uL Lymphocytes # (1.0-4.8) k/uL ABG pH (7.35-7.45) ABG pCO2 (35-45) mmHg ABG pO2 (83-108) mmHg ABG HCO3 (21-25) mmol/L ABG Total CO2 (19-24) mmol/L ABG O2 Saturation (94-97) % Potassium 6.2 H* 5.8 H (3.5-5.1) mmol/L Carbon Dioxide (22-30) mmol/L BUN (9-20) mg/dL Creatinine (0.66-1.25) mg/dL Glucose (74-99) mg/dL POC Glucose (mg/dL) 174 H (75-99) mg/dL Calcium (8.4-10.2) mg/dL Total Protein (6.3-8.2) g/dL Albumin (3.5-5.0) g/dL Procalcitonin (0.02-0.09) ng/mL 08/22/21 08/22/21 08/22/21 Range/Units 05:48 05:50 06:00 WBC 24.7 H (3.8-10.6) k/uL Neutrophils # (1.3-7.7) k/uL Lymphocytes # (1.0-4.8) k/uL ABG pH 7.21 L (7.35-7.45) ABG pCO2 90 H* (35-45) mmHg ABG pO2 53 L* (83-108) mmHg ABG HCO3 36 H (21-25) mmol/L ABG Total CO2 39 H (19-24) mmol/L ABG O2 Saturation 87.3 L (94-97) % Potassium (3.5-5.1) mmol/L Carbon Dioxide (22-30) mmol/L BUN (9-20) mg/dL Creatinine (0.66-1.25) mg/dL Glucose (74-99) mg/dL POC Glucose (mg/dL) 147 H (75-99) mg/dL Calcium (8.4-10.2) mg/dL Total Protein (6.3-8.2) g/dL Albumin (3.5-5.0) g/dL Procalcitonin (0.02-0.09) ng/mL 08/22/21 Range/Units 06:00 WBC (3.8-10.6) k/uL Neutrophils # (1.3-7.7) k/uL Lymphocytes # (1.0-4.8) k/uL ABG pH (7.35-7.45) ABG pCO2 (35-45) mmHg ABG pO2 (83-108) mmHg ABG HCO3 (21-25) mmol/L ABG Total CO2 (19-24) mmol/L ABG O2 Saturation (94-97) % Potassium 5.7 H (3.5-5.1) mmol/L Carbon Dioxide 36 H (22-30) mmol/L BUN 46 H (9-20) mg/dL Creatinine 5.28 H (0.66-1.25) mg/dL Glucose 207 H (74-99) mg/dL POC Glucose (mg/dL) (75-99) mg/dL Calcium 6.9 L (8.4-10.2) mg/dL Total Protein 5.3 L (6.3-8.2) g/dL Albumin 2.4 L (3.5-5.0) g/dL Procalcitonin (0.02-0.09) ng/mL Microbiology - Last 24 Hours (Table) 08/21/21 22:22 Gram Stain - Preliminary Sputum Sputum Culture - Preliminary 08/20/21 23:00 Blood Culture - Preliminary Blood No Growth after 24 hours 08/15/21 16:52 Blood Culture - Final Blood No Growth after 144 hours 08/15/21 16:52 Blood Culture - Final Blood No Growth after 144 hours Assessment and Plan Plan: 1 Acute hypoxemic respiratory failure, secondary to coronavirus associated pneumonia. The patient was intubated on 08/20/2021. He has progressed significantly and the patient has developed severe hypoxemic and hypercapnic respiratory failure. Currently we are allowing permissive hypercapnia. Peak and static pressures are quite elevated and the patient has developed no mediastinum and subcutaneous emphysema. Oxygenation has improved and the patient currently is on a 24-hour PEEP with an FiO2 of 80% and an inspiratory close of 0.2 seconds. Chest x-ray was noted. Blood gases was noted. Chest x- ray shows worsening in bilateral airspace disease or consolidation. ET tube is in a good location. As a matter markers are elevated. The patient remains on Decadron. He has also developed an acute kidney injury with progressive wors ening renal function and the patient is hypotensive and hemodynamically unstable at this point in time on pressors. 2 Elevated inflammatory markers secondary to coronavirus infection. The inflammatory markers remain quite elevated. The pro calcitonin Is also elevation of the protest on a level suggestive an underlying bacterial infection 3 acute leukocytosis, likely secondary to underlying sepsis. The patient is hypotensive and hemodynamically unstable on pressors 4 sepsis, received a total of 3 L of IV fluids and still on pressors with norepinephrine running at 0.11 mcg/kg per minute and the pressor requirements improved since yesterday. The patient received adequate amount of fluids. The patient is currently on IV Zosyn. Cultures are still pending for now. 5 permissive hypercapnia and respiratory acidosis, the patient is currently on a bicarb infusion 6 acute hyperkalemia, treated 7 acute kidney injury, progressive worsening in her renal function and creatinine is up to 5.28 and the patient is anuric at this point in time. Dialysis catheter was inserted and the patient is going to be started on hemodialysis today. We'll titrate the pressors as the patient is being dialyzed. 8 hypotension/sepsis currently on accommodation fluids and pressors and antibiotics. 9 obesity with a BMI of 42.6 10 SVT currently on amiodarone drip at 0.5 mg per minute. Current rhythm is sinus tachycardia. Plan Continue ventilator support and discontinued the inspiratorypause and keep the PEEP at 24 with an FiO2 of 80%. Continue maintenance bicarb infusion at the rate of 75 mL an hour Repeat the blood gases at noontime Proceed with hemodialysis today Continue IV Zosyn Continue Decadron Continue Lovenox for DVT prophylaxis D-dimer was elevated yet the Doppler of the lower extremities have been negative on 2 separate occasions Wean off pressors Monitor fever pattern and leukocytosis. Cultures are negative the patient remains on IV Zosyn and ID is on the case Discontinue Baricitinib enteral feeding for nutritional support, dietary consultation insulin for Coverage Lovenox 40 mg subcu every 12 hours Monitor d-dimer inflammatory markers Continue the rest of the oral multivitamin supplements Proceed with hemodialysis today Condition is obviously critical continue to follow we'll and make further recommendations based on patient's progress. Condition is obviously critical. The patient is currently in intensive care unit. Sedated and paralyzed. We'll continue to follow make further recommendations based on his progress. This is a critically care evaluation was done and more than 30 minutes. Time with Patient: Greater than 30
--- NOTE | 2021-08-22 10:46 | CONS ---
CONSULTATION This is a 36-year-old gentleman. I was consulted in the intensive care unit for placement of dialysis catheter. The patient has been diagnosed with Covid positive and also patient has been intubated. We got the consent done from the family and we will place a dialysis catheter. Patient has a high BUN and creatinine. PAST MEDICAL HISTORY: No history of diabetes, coronary artery disease. SURGICAL HISTORY: surgery done in the past. SOCIAL HISTORY: Nonsmoker. PHYSICAL EXAMINATION: Patient was seen in his room. The patient has been intubated. NECK: Supple. CHEST has rhonchi and crackles bilateral. The patient has been intubated. ABDOMEN: Soft, nontender. VASCULAR examination: Femorals are 1+ bilaterally. The patient has a high BUN and creatinine. PLAN: Placement of the dialysis catheter. Risks and complications discussed. FREDERICK / CONGN: [id number] /
[2021-08-22] MEDS: AMIODARONE 450 MG in DEXTROSE 5% IN WATER 250 ML IV SCH ×2 (11:14)
[2021-08-22] MEDS: ENOXAPARIN 40 MG/0.4 ML SYRINGE SQ SCH ×2 (11:25→21:38)
[2021-08-22 11:40] LABS: Glucose,Whole Blood 154 mg/dL (75-99)
[2021-08-22] MEDS: NOREPINEPHRINE 8 MG in SODIUM CHLORIDE 0.9% 250 ML IV SCH ×2 (11:50→17:46)
--- NOTE | 2021-08-22 12:40 | PCN ---
PROCEDURE NOTE PREOPERATIVE DIAGNOSIS: Acute on chronic renal failure, COVID, intubated. POSTOPERATIVE DIAGNOSIS: Acute on chronic renal failure, COVID, intubated. PROCEDURE PERFORMED: Ultrasound-guided dialysis catheter placement, right femoral approach. PROCEDURE DESCRIPTION: Right groin was prepped and draped in usual sterile manner. Ultrasound-guided micropuncture was introduced into the right femoral vein. Micropuncture guide was passed and 4-Liberian dilator advanced on top of the guidewire. After that we passed a regular guidewire and we placed a dilator on the top of the guidewire and then we placed a sheath and catheter on top of the guidewire. The guidewire was removed. Decent flow was noted. Flushed with heparin saline and hep-locked and secured with 3-0 nylon. Dressing was applied. Patient tolerated the procedure well. FREDERICK / GARCIA: [id number] /
[2021-08-22 13:38] LABS: ABG Base Excess 5.1 mmol/L; ABG HCO3 33 mmol/L (21-25); ABG PO2 63 mmHg (83-108); ABG TCO2 36 mmol/L (19-24)
[2021-08-22 13:39] LABS: ABG PCO2 86 mmHg (35-45); Allen Test Performed? no
[2021-08-22] MEDS: SODIUM CHLORIDE 0.9% 1,000 ML IV SCH ×2 (14:55→23:20)
--- NOTE | 2021-08-22 16:15 | PCN ---
PROCEDURE NOTE PREOPERATIVE DIAGNOSIS: Acute renal failure, COVID positive, non-functioning dialysis catheter. PROCEDURE PERFORMED: Placement of a 30 cm dialysis catheter, right femoral approach. PROCEDURE DESCRIPTION: The patient was seen. Right groin was prepped and draped in usual sterile manner. Guidewire was passed through the previous catheter. Old catheter was removed and we placed a 30 cm dialysis catheter on the top of the guidewire. Guidewire was removed. Catheter was flushed without any resistance, and 3-0 nylon was used to secure the catheter. Dressing was applied. Patient tolerated the procedure well. MMODL / IJN: [id number] /
[2021-08-22 17:12] LABS: Glucose,Whole Blood 154 mg/dL (75-99)
[2021-08-22 19:47] LABS: Hepatitis B Surface AB- Quant 3.5 mIU/mL; Hepatitis B Surface Antibody Nonreactive (Nonreactive); Hepatitis B Surface Antigen Nonreactive (Nonreactive)
--- NOTE | 2021-08-22 20:55 | PN ---
PROGRESS NOTE DATE OF SERVICE: 08/22/2021 This 36-year-old gentleman who was admitted with multiple medical problems and complication of Covid 19 is being closely monitored at this time. The patient has taken a turn for the worse and the patient also developed significant renal failure at this time. The most recent chest x-ray which was reviewed personally by me showed extensive bilateral infiltrates, right more than the left, indicative of Covid 19 interstitial pneumonia. The patient's creatinine also worsened to 5.28 indicating acute renal failure. The patient has started on emergent hemodialysis today. Patient closely monitored at this time. The patient is on broad-spectrum IV antibiotics. The cultures are negative so far. PAST MEDICAL HISTORY: Reviewed. REVIEW OF SYMPTOMS: Could not be taken. CURRENT MEDICATIONS: Reviewed and include: Tylenol, Ventolin, amiodarone, vitamin C, Peridex, dexamethasone, fentanyl, Zosyn, zinc sulfate. PHYSICAL EXAMINATION: Patient is mechanically sedated. Pulse is 117. Blood pressure is 101/49. Respiration 36, temperature 102.2, pulse ox 91 percent on mechanical ventilation. HEENT: Conjunctivae normal. NECK: No JVD. CARDIOVASCULAR: S1, S2 muffled. RESPIRATION: Breath sounds diminished in the bases. A few scattered rhonchi and crackles. ABDOMEN: Soft, nontender. LEGS: No edema. No swelling. NERVOUS SYSTEM: No focal deficits. LABS: WBC 24.7, hemoglobin 13.5, and sodium 141, potassium 5.2, creatinine is 5.28. The LFTs are noted. LDH is noted. ASSESSMENT: 1. Acute COVID-19 infection with acute Covid 19 bilateral interstitial pneumonia with acute hypoxic respiratory failure on mechanical ventilation. 2. Hypovolemic hyponatremia with possible sepsis. 3. Possible acute sepsis secondary to suppurative bacterial pneumonia. 4. Elevated inflammatory markers, of Covid 19 infection. 5. Acute renal failure, acute tubular necrosis, possibly secondary to Covid 19 multifactorial, started on newly started hemodialysis. 6. Change in mental status, acute metabolic encephalopathy. 7. Acute renal failure with acute tubular necrosis. 8. Obesity with body mass index of 40.7. 9. Elevated D-dimer without any evidence of deep vein thrombosis. 10.Elevated AST/ALT. 11.Elevated CRP, LDH. 12.Severe acute respiratory acidosis. 13.Elevated D-dimer. 14.FULL CODE. 15.Obesity with body mass of 44.8. RECOMMENDATIONS AND DISCUSSION: This 36-year-old gentleman who presented with multiple complex medical issues, we will monitor the patient closely. Continue the current management and symptomatic treatment. Otherwise at this time I recommend to continue current medications. Continue broad-spectrum antibiotics. Continue hemodialysis. Continue with Lovenox. The prognosis extremely guarded because of multiple complex medical issues and further recommendations to follow. Ultrasound of the legs done about 2 days ago showed no evidence of DVTs. MMODL / IJN: [id number] / MAMIE
--- NOTE | 2021-08-22 22:17 | PN ---
PROGRESS NOTE DATE OF SERVICE: 08/22/2021 REASON FOR FOLLOWUP: COVID-19 pneumonia. INTERVAL HISTORY: The patient has been spiking a fever with a temperature of 102 degrees Fahrenheit this evening. The patient is borderline hemodynamically stable requiring some pressor support. FiO2 is currently at 80%. No significant purulent secretions through the ET, diarrhea or any other changes reported by the nursing staff. PHYSICAL EXAMINATION: Blood pressure of 100/49, pulse of 116, temperature of 102. He is 91% on 80% FiO2. General description is a middle-aged male intubated on the vent. Respiratory system: Unlabored breathing, decreased intensity of breath sounds. No wheeze. Heart S1, S2. Regular rate and rhythm. Abdomen soft, no tenderness. LABS: Hemoglobin 13.8, white count 4.7, BUN of 46, creatinine 5.28. Sputum culture is currently pending. DIAGNOSTIC IMPRESSION AND PLAN: Patient with acute respiratory failure which is multifactorial in this patient who initially presented to hospital with COVID-19 pneumonia with subsequent worsening of his clinical condition, requiring intubation. There was concern for possible aspiration pneumonia. He has been started on Zosyn. Did have persistent fever. We will add Zyvox to cover for the Gram-positive. Sputum culture will be followed and antibiotic adjusted further if needed. Overall prognosis remains guarded. Continue with supportive care. MMODL / IJN: [id number] /
[2021-08-22] MEDS: LINEZOLID 600 MG in DEXTROSE/WATER 1 300ML.BAG IVPB SCH (22:38)
[2021-08-22 23:24] LABS: Glucose,Whole Blood 159 mg/dL (75-99)
[2021-08-23] MEDS: AMIODARONE 450 MG in DEXTROSE 5% IN WATER 250 ML IV SCH ×2 (02:30)
[2021-08-23] MEDS: ARTIFICIAL TEARS-HYPROMELLOSE DROPS 15 ML BTL BOTH EYES SCH ×5 (04:05→20:15)
[2021-08-23 04:42] LABS: Albumin 2.6 g/dL (3.5-5.0); Total Bilirubin 0.8 mg/dL (0.2-1.3); Total Protein 5.9 g/dL (6.3-8.2)
[2021-08-23 04:44] LABS: Basophils # (A) 0.1 k/uL (0-0.2); Basophils % (A) 0 %; Eosinophils # (A) 0.1 k/uL (0-0.7); Eosinophils % (A) 0 %; HCT 43.2 % (39.0-53.0); HGB 13.8 gm/dL (13.0-17.5); Lymphocytes # (A) 0.5 k/uL (1.0-4.8); Lymphocytes % (A) 2 %; MCH 31.9 pg (25.0-35.0); MCHC 31.9 g/dL (31.0-37.0); MCV 99.9 fL (80.0-100.0); Mean Platelet Volume 8.1; Monocytes # (A) 0.6 k/uL (0-1.0); Monocytes % (A) 2 %; Neutrophils % (A) 95 %; Platelet Count 265 k/uL (150-450); RBC 4.33 m/uL (4.30-5.90); RDW 14.2 % (11.5-15.5); WBC 29.3 k/uL (3.8-10.6)
[2021-08-23 04:48] LABS: Neutrophils # (A) 27.8 k/uL (1.3-7.7)
[2021-08-23 05:27] LABS: Glucose,Whole Blood 166 mg/dL (75-99)
[2021-08-23] MEDS: INSULIN ASPART (NovoLOG) 100 UNIT/ML VIAL SQ SCH ×3 (05:28→18:17)
[2021-08-23 05:45] LABS: ABG Base Excess -2.9 mmol/L; ABG HCO3 27 mmol/L (21-25); ABG Oxygen Saturation 91.9 % (94-97); ABG PO2 66 mmHg (83-108); ABG TCO2 30 mmol/L (19-24); Allen Test Performed? Yes
[2021-08-23 06:00] LABS: Phosphorus 11.7 mg/dL (2.5-4.5); Potassium 6.5 mmol/L (3.5-5.1)
[2021-08-23 06:03] LABS: ABG PCO2 87 mmHg (35-45)
[2021-08-23] MEDS ORDERED: DEXTROSE 50% SYRINGE 50 ML IVP STA ×2 (06:41→17:03)
[2021-08-23] MEDS ORDERED: INSULIN REGULAR 100 UNIT/ML VIAL (IV) IV ONE ×3 (06:41→21:33)
[2021-08-23] MEDS ORDERED: SODIUM BICARB 8.4% 50 ML SYR (1 MEQ/ML) IV STA ×3 (06:41→17:27)
[2021-08-23] MEDS ORDERED: CALCIUM GLUCONATE 1 GM in SODIUM CHLORIDE 0.9% 100 ML IVPB ONE ×3 (06:42→21:45)
--- NOTE | 2021-08-23 08:15 | XR ---
EXAMINATION TYPE: XR chest 1V portable DATE OF EXAM: 08/23/2021 Comparison: 08/22/2021 Clinical History: 36-year-old male COVID 19 Findings: ET tube tip just above the level of the medial clavicular heads. Consider slight advancement by 2 cm in reassessing in follow-up. Left subclavian CVC tip at the upper SVC level. Severe bilateral subcuta neous emphysema persists. No definite pneumothorax. Heart borderline enlarged with suggestion of mild pneumomediastinum. Bilateral patchy and confluent consolidation shows slight improvement. Impression: 1. Severe bilateral subcutaneous emphysema persists. Trace pneumomediastinum suspected. No appreciabl e pneumothorax. 2. ET tube tip just above the level of the clavicular heads. Consider advancement by 2 cm and reasses sing of follow-up. 3. Continued bilateral patchy and confluent airspace disease, similar to minimally improved.
[2021-08-23 08:20] LABS: C Reactive Protein 58.4 mg/dL (<1.0)
[2021-08-23] MEDS: ALBUTEROL HFA INHALER INHALATION SCH ×4 (08:24→20:23)
[2021-08-23] MEDS: ASCORBIC ACID 500 MG TAB PO SCH (08:42)
[2021-08-23] MEDS: PIPERACILLIN-TAZOBACTAM 3.375 GM in SODIUM CHLORIDE 0.9% 100 ML IVPB SCH ×2 (08:42→20:14)
[2021-08-23] MEDS: DEXAMETHASONE SOD PHOSPHATE 10 MG/ML 1 ML VIAL IVP SCH ×2 (08:42→20:14)
[2021-08-23] MEDS: PANTOPRAZOLE 40 MG/10 ML VIAL IVP SCH (08:42)
[2021-08-23] MEDS: ZINC SULFATE 220 MG CAP PO SCH (08:43)
[2021-08-23] MEDS: ENOXAPARIN 40 MG/0.4 ML SYRINGE SQ SCH ×2 (08:43→20:14)
[2021-08-23] MEDS: CHLORHEXIDINE GLUCONATE 15 ML CUP MUCOUS MEM SCH ×2 (08:43→20:14)
--- NOTE | 2021-08-23 08:55 | P.PN ---
Subjective Patient is seen in follow-up for acute kidney injury. Started on hemodialysis August 22. Oliguric. On Levophed. Receiving tube feeds. Potassium level .5 this morning. Intubated. On 80% FiO2. Vital signs - 1 vasopressor support. In A. fib. HEENT: Intubated. LUNGS: Breath sounds decreased. HEART: Irregular rate and rhythm. ABDOMEN: Soft, obese. EXTREMITITES: Trace edema. Objective - Vital Signs Vital signs: Vital Signs Temp 99.7 F H 08/23/21 04:00 Pulse 118 H 08/23/21 07:00 Resp 36 H 08/23/21 07:00 BP 119/66 08/22/21 20:00 Pulse Ox 93 L 08/23/21 07:00 Intake & Output 08/22/21 08/23/21 08/23/21 18:59 06:59 18:59 Intake Total 3301.314 2736.55 110 Output Total 300 0 Balance 3001.314 2736.55 110 Weight 153 kg Intake: IV 1264 1133 103 ART line 39 33 3 Dextrose 5% in Water 1, 150 000 ml @ 75 mls/hr IV . [id number] ONE with Sodium Bicarb (1 Meq/ml) 150 ml Rx#:[id number] Sodium Chloride 0.9% 1, 1075 1100 100 000 ml @ 100 mls/hr IV . Q10H RACHEL Rx#:[id number] Intake, IV Titration 9823.169 7352.55 Amount Amiodarone 450 mg In 250 Dextrose 5% in Water 250 ml @ 0.5 MG/MIN 16.667 mls/hr IV .Q15H RACHEL Rx#: [id number] Cisatracurium 200 mg In 34.429 Sodium Chloride 0.9% 180 ml @ 1 MCG/KG/MIN 8.165 mls/hr IV .Q24H RACHEL Rx#: [id number] Linezolid 600 mg In 300 Dextrose/Water 1 300ml. bag @ 150 mls/hr IVPB Q12H RACHEL Rx#:[id number] Norepinephrine 8 mg In 258.000 Sodium Chloride 0.9% 250 ml @ 0.05 MCG/KG/MIN 14. 513 mls/hr IV .[id number] RACHEL Rx#:[id number] Piperacillin-Tazobactam 3 100 .375 gm In Sodium Chloride 0.9% 100 ml @ 25 mls/hr IVPB Q8HR R[facility]HEL Rx# :[id number] Sodium Chloride 0.9% 1, 75 000 ml @ 100 mls/hr IV . Q10H RACHEL Rx#:[id number] fentaNYL (PF) 2,500 mcg 250 In Sodium Chloride 0.9% 200 ml @ 1.5 MCG/KG/HR 21 .39 mls/hr IV .[id number] RACHEL Rx#:[id number] propofoL 1,000 mg In 682.885 456.55 Empty Bag 1 bag @ Titrate IV .Q0M RACHEL Rx#: [id number] Tube Feeding 77 77 7 Hemodialysis 300 Other 360 420 Output: Urine 0 0 Hemodialysis 300 Other: Voiding Method Indwelling Catheter Indwelling Catheter ABP, PAP, CO, CI - Last Documented Arterial Blood Pressure 114/57 - Labs CBC & Chem 7: 08/23/21 03:55 08/23/21 03:55 Labs: Abnormal Lab Results - Last 24 Hours (Table) 08/22/21 08/22/21 08/22/21 Range/Units 11:00 11:39 13:36 WBC (3.8-10.6) k/uL Neutrophils # (1.3-7.7) k/uL Lymphocytes # (1.0-4.8) k/uL ABG pH 7.20 L (7.35-7.45) ABG pCO2 86 H* (35-45) mmHg ABG pO2 63 L (83-108) mmHg ABG HCO3 33 H (21-25) mmol/L ABG Total CO2 36 H (19-24) mmol/L ABG O2 Saturation 92.0 L (94-97) % Sodium (137-145) mmol/L Potassium 5.2 H (3.5-5.1) mmol/L BUN (9-20) mg/dL Creatinine (0.66-1.25) mg/dL Glucose (74-99) mg/dL POC Glucose (mg/dL) 154 H (75-99) mg/dL Calcium (8.4-10.2) mg/dL Phosphorus (2.5-4.5) mg/dL Lactate Dehydrogenase (313-618) U/L Creatine Kinase (55-170) U/L C-Reactive Protein (<1.0) mg/dL Total Protein (6.3-8.2) g/dL Albumin (3.5-5.0) g/dL 08/22/21 08/22/21 08/23/21 Range/Units 17:10 23:23 03:55 WBC (3.8-10.6) k/uL Neutrophils # (1.3-7.7) k/uL Lymphocytes # (1.0-4.8) k/uL ABG pH (7.35-7.45) ABG pCO2 (35-45) mmHg ABG pO2 (83-108) mmHg ABG HCO3 (21-25) mmol/L ABG Total CO2 (19-24) mmol/L ABG O2 Saturation (94-97) % Sodium 136 L (137-145) mmol/L Potassium 6.5 H* (3.5-5.1) mmol/L BUN 52 H (9-20) mg/dL Creatinine 7.15 H* (0.66-1.25) mg/dL Glucose 187 H (74-99) mg/dL POC Glucose (mg/dL) 154 H 159 H (75-99) mg/dL Calcium 7.0 L (8.4-10.2) mg/dL Phosphorus 11.7 H* (2.5-4.5) mg/dL Lactate Dehydrogenase 2271 H (313-618) U/L Creatine Kinase 216 H (55-170) U/L C-Reactive Protein 58.4 H (<1.0) mg/dL Total Protein 5.9 L (6.3-8.2) g/dL Albumin 2.6 L (3.5-5.0) g/dL 08/23/21 08/23/21 08/23/21 Range/Units 03:55 05:25 05:39 WBC 29.3 H (3.8-10.6) k/uL Neutrophils # 27.8 H (1.3-7.7) k/uL Lymphocytes # 0.5 L (1.0-4.8) k/uL ABG pH 7.10 L* (7.35-7.45) ABG pCO2 87 H* (35-45) mmHg ABG pO2 66 L (83-108) mmHg ABG HCO3 27 H (21-25) mmol/L ABG Total CO2 30 H (19-24) mmol/L ABG O2 Saturation 91.9 L (94-97) % Sodium (137-145) mmol/L Potassium (3.5-5.1) mmol/L BUN (9-20) mg/dL Creatinine (0.66-1.25) mg/dL Glucose (74-99) mg/dL POC Glucose (mg/dL) 166 H (75-99) mg/dL Calcium (8.4-10.2) mg/dL Phosphorus (2.5-4.5) mg/dL Lactate Dehydrogenase (313-618) U/L Creatine Kinase (55-170) U/L C-Reactive Protein (<1.0) mg/dL Total Protein (6.3-8.2) g/dL Albumin (3.5-5.0) g/dL Microbiology - Last 24 Hours (Table) 08/20/21 23:00 Blood Culture - Preliminary Blood No Growth after 48 hours 08/21/21 22:22 Gram Stain - Preliminary Sputum Sputum Culture - Preliminary Assessment and Plan Plan: Assessment: 1. Acute kidney injury secondary to ATN secondary to septic shock. Baseline creatinine near 1. Oliguric. Started on hemodialysis August 22. 2. Acute hypoxic and hypercapnic respiratory failure secondary to covid-19 pneumonia. Intubated. 3. Septic shock secondary to COVID-19 infection on vasopressor support. 4. Hyperkalemia secondary to acute kidney injury, oliguric. 5. A. fib with RVR maintained on amiodarone drip. Status post cardioversion. 6. Hyperphosphatemia secondary to acute kidney injury. Plan: Maintain normal saline - decrease rate to 50 mL an hour. Maintain tube feeds. Second treatment of hemodialysis today and third treatment tomorrow. Patient did receive IV calcium, IV insulin with D50 as well as sodium bicarb IV push this morning. Wean FiO2 and vasopressors. Add PhosLo. Repeat potassium levels this evening.
[2021-08-23] MEDS: CISATRACURIUM 200 MG in SODIUM CHLORIDE 0.9% 180 ML IV SCH (09:30)
--- NOTE | 2021-08-23 10:19 | P.PN ---
Subjective Progress Note Date: 08/23/21 on 2020 on seeing the patient for a follow-up. This is a pleasant 36-year-old male patient with Covid associated pneumonia. The patient was hospitalized for worsening shortness of breath and generalized weakness and muscle aches. He is a nonvaccinated individual. He was on a nonrebreather fa cemask. During the course of his illness, he was placed on Airvo at 60 L were notified to 90% and earlier this morning the patient was transitioned to BiPAP which is currently at the pressure of 15/5 with an FiO2 of 100%. The chest x- ray showing bilateral diffuse pulmonary infiltrates. Doppler of the lower extremity has been negative. The patient has blood work which showed a d-dimer of 30.2. His LDH level was elevated at 1463 and the CRP level is at 12.3. The patient is white cell count of 9.28 with a hemoglobin of 16.4 and a platelet count of 305. Electrodes are within normal limits. The patient was treated with a combination of Decadron 6 mg IV every 24 hours. He is on Lovenox 40 mg subcu twice a day. He is on normal saline at the rate of 75 mL an hour. He is also taking oral zinc and vitamin C. Noted the patient's has not received any other outpatient treatment prior to his hospitalization. He did not receive monoclonal antibodies. He was symptomatic around 9 days prior to him coming to the hospital. The patient is currently on a BiPAP at a pressure of 15/5 cm of w ater with an FiO2 of 100%. The patient was also placed in a prone body positioning which obviously helped him with his oxygenation and the patient's pulse ox is up to 91% On 08/20/2021, the patient is still struggling with his breathing. Is a bit tachypneic and he is absolutely dependent on the BiPAP which is set at a pressure of 16/6 cm of water and FiO2 100%. He is able to generate tidal volume of around above in 1000 and his respiratory rate currently is at 32 as the patient is laying down in a prone body position. The patient is a nonvaccinated individual. He had progressive worsening his oxygenation. He was on a nonrebreather and later on on an Airvo and currently is on a BiPAP. The patient is on Decadron 6 mg IV every 12 hours and the patient is also on Lovenox 40 mg subcu for DVT prophylaxis. He was on Baricitinib that was discontinued. I would suggest putting the patient back on Baricitinib and I have already discussed this with infectious disease. In terms of his inflammatory markers, the patient has a d-dimer of 34 and his LDH level is up to 4263 and his CRP leve l is up to 25.3. No other labs are available. Unfortunately his inflammatory markers are on the rise. In terms of treatment, as mentioned, he is on Decadron 6 mg IV every 12 hours. Lovenox is 40 mg subcu every 12 hours. His Doppler of the lower extremities was done on 08/18/2021 was negative for DVT. The elevation d-dimer along with LDH rise is consistent with worsening of his forward 19 related pneumonia and explained his progressive respiratory failure. Pulmonary embolism is felt to be less likely. We'll repeat the Doppler. 08/21/2021, the patient is intubated on a mechanical ventilator. The patient got intubated yesterday without any major difficulties. We had to utilize low t idal volume high PEEP system to maintain his oxygenation. Immediately postintubation, the patient was sedated with propofol and currently propofol is running at 75 [place] respiratory per minute. He is also on fentanyl running at 1 mcg/kg/h. The patient is paralyzed with Nimbex at 1 mg/kg per minute. He is adequately sedated and paralyzed. Post intubation, he was kept on assist control mode at the rate of 36 with a tidal volume of 400 and FiO2 of 100% and a day and currently is at 80% and a PEEP is currently at 24. Blood gases from this morning showed a pH of 7.05 with a pCO2 of 96 and pO2 of 169. Based on that, the FiO2 was up around 80%. I gave the patient a total of 150 mEq of sod ium bicarbonate the patient was started on a bicarb infusion. Note that the potassium level was also elevated. The patient was given D50 insulin and a repeat potassium level is pending for now. Note that he also developed an acute kidney injury. Creatinine is up to 1.75. Overnight, he received a total of 2 L of normal saline and the liver under liter was given making a total of 3 L. His urine output is in the order of 5-10 mL an hour. He has a subclavian triple- lumen catheter in place. The patient remains on Decadron. Baricitinib was discontinued. Based on his post intubation chest x-ray, there was worsening consolidation of the right lower lung and I started him on IV cefepime and blood cultures and sputum cultures were sent. The patient has a white cell count of 29.2 today with a hemoglobin of 16.5, his LDH level was as high as 4263 and currently is down to 3458 and his CRP level is at 26. Pro-Level Is at 0.27. The Patient Is Running a Fever and He Has a Low-Grade Fever of 100.5. Enteral Feeding for Nutritional Support Has Been Not Started yet. Noted the patient was quite hypotensive also and this developed overnight. The patient was as high as 27 g of norepinephrine infusion and this was gradually weaned off to 13 g per minute. His most recent blood pressure is 100/59 with a mean of 73. 08/22/2021, the patient's condition is more critical and worse compared to yesterday. The patient this morning remains intubated on a mechanical ventilator. His sedated and is currently on propofol running at 75 mcg/kg per minute and fentanyl is running at 1.5 mcg/kg/h. The patient is also completed paralyzed with Nimbex at 1.5 mg/kg/m. He is very much success with the mechanical ventilator. He remains on assist control mode at the rate of 36, tidal volume of 400, FiO2 of 80% and a PEEP of 24. The peak airway pressure is 43. Noted the patient has a inspiratory pause of 0.2 seconds and he is on a inverse ratio 1.2-1. Gases from today shows a pH of 7.049 with a pCO2 of 96 and pO2 169. Peak airway pressure was 43 with a static airway pressure of 37. Ch est x-ray showing worsening in the bilateral pulmonary infiltrates with worsening consolidation lung bases bilaterally especially in the right. The patient also has developed subcutaneous emphysema and pneumomediastinum. There is no evidence of any pneumothorax at this point in time. No significant orotracheal secretions. I was hoping this patient with some bicarb infusion based on his underlying permissive hypercapnia respiratory acidosis. Bicarb infusion was running at the rate of 75 mL an hour. This was discontinued by nephrology and I would like to return back again as the patient is significantly acidotic at this point. At the same time, the patient is febrile. Pro- calcitonin level is elevated. He was started on IV Zosyn as an empiric antibiotic coverage. ID is on the case. He remains on Decadron for his community related pneumonia. His inflammatory markers today continued to be significantly elevated. His LDH level currently is at 3458 and the CRP level is at 26. Hemodynamically, the patient is still requiring pressors. He is currently running on norepinephrine at 0.11 g/kg per minute. Overnight, the patient had several runs of SVT. He required cardioversion as the patient became quite significantly hemodynamically unstable. Note that he had to be cardioverted on 3 different occasions. Ultimately was given amiodarone bolus and currently is on amiodarone at 1 mg per minute. Cardiac rhythm is currently in sinus tachycardia. He has also developed worsening renal functions. Creatinine is up to 5.28. Serum bicarb is at 36. Urine output is in order of 0 mL an hour. The patient is receiving enteral feeding for nutritional support. Currently is on vital AF at the rate of 70 mL an hour which is currently at goal. Rest of the blood work shows a white cell count 24.7 with a hemoglobin of 13.5. On 2020, the patient remains intubated on a mechanical ventilator. The patient is also sedated and paralyzed. Over the past 24 hours, the patient has remained essentially stable. He is a case of COVID 19 related pneumonia with ARDS and hypoxic respiratory failure. This morning, the patient remains on a combination of propofol and fentanyl. Propofol is running at the rate of 65 mcg/kg per minute and the fentanyl is running at 1.5 mcg/kg/h. The patient is also on Nimbex running at 1 mcg/kg per minute. The patient remains on a mechanical ventilator. Earlier this morning, the patient was on assist-control at the rate of 36, tidal volume of 400, FiO2 of 80% with a PEEP of 24. His peak airway pressure was 41 and a static airway pressure was 39. His morning blood gases showed a pH of 7.1 with a pCO2 of 87 and pO2 of 66. His chest x-ray showed diffuse bilateral pulmonary infiltrates and there was worsening of the subcutaneous emphysema which is essentially a sign of barotrauma. No evidence of any pneumothorax. ET tube had to be pushed by another 1 cm. There is continuing pulmonary infiltrates with patchy airspace disease bilaterally. At the same time, the patient also had electrolyte abnormalities and the potassium level was as high as 6.5 earlier this morning. Nephrology has been involved. The patient was treated for this and the patient was given D50 insulin and bicarb. Currently the patient is undergoing dialysis. No ultrafiltration will be done and the goal is to improve the potassium. We will recheck the potassium and a blood gases following his dialysis. Meanwhile, the mechanical ventilator, few changes were done to lower his peak and static pressure. A drop the PEEP down to 22. FiO2 of 80%. Drop the tidal volume down to the 80. With those changes, his peak airway pressure is 41 with a static pressure 39 with a static pressure of 36. The patient is currently afebrile. He was running a fever throughout the day yesterday. He is covered with broad-spectrum antibiotics and the patient is currently on a combination of IV Zosyn and he is also on Zyvox. ID is on the case making arrangements on antibiotic coverage. Meanwhile, the patient is on Decadron 6 mg IV every 12 hours. All of the cultures are negative thus far. In terms of his inflammatory markers, the patient LDH level is sl ightly improved and is currently down to 2271 and his CRP level is down to 58.4. The patient also has an acute kidney injury. Potassium level is up to 6.5. His BUN is at 52 with a creatinine of 7.15. His white cell count is higher at 29.3. He is on vital AF at the rate of 70 mL an hour. Cardiac rhythm is sinus. On examination, he has developed some subcutaneous emphysema along the neck and the chest and abdominal wall. Objective - Vital Signs Vital signs: Vital Signs Temp 100 F H 08/23/21 08:00 Pulse 113 H 08/23/21 09:45 Resp 36 H 08/23/21 09:45 BP 119/66 08/23/21 09:45 Pulse Ox 93 L 08/23/21 09:45 Intake & Output 08/22/21 08/23/21 08/23/21 18:59 06:59 18:59 Intake Total 3301.314 2902.121 450 Output Total 300 0 0 Balance 3001.314 2902.121 450 Weight 153 kg 153 kg Intake: IV 1264 1133 309 ART line 39 33 9 Dextrose 5% in Water 1, 150 000 ml @ 75 mls/hr IV . [id number] ONE with Sodium Bicarb (1 Meq/ml) 150 ml Rx#:[id number] Sodium Chloride 0.9% 1, 1075 1100 300 000 ml @ 50 mls/hr IV . Q20H [facility] Rx#:[id number] Intake, IV Titration 6090.332 4632.121 Amount Amiodarone 450 mg In 250 Dextrose 5% in Water 250 ml @ 0.5 MG/MIN 16.667 mls/hr IV .Q15H [facility] Rx#: [id number] Cisatracurium 200 mg In 34.429 165.571 Sodium Chloride 0.9% 180 ml @ 1 MCG/KG/MIN 8.165 mls/hr IV .Q24H [facility] Rx#: [id number] Linezolid 600 mg In 300 Dextrose/Water 1 300ml. bag @ 150 mls/hr IVPB Q12H [facility] Rx#:[id number] Norepinephrine 8 mg In 258.000 Sodium Chloride 0.9% 250 ml @ 0.05 MCG/KG/MIN 14. 513 mls/hr IV .[id number] [facility] Rx#:[id number] Piperacillin-Tazobactam 3 100 .375 gm In Sodium Chloride 0.9% 100 ml @ 25 mls/hr IVPB Q8HR [facility] Rx# :[id number] Sodium Chloride 0.9% 1, 75 000 ml @ 50 mls/hr IV . Q20H [facility] Rx#:[id number] fentaNYL (PF) 2,500 mcg 250 In Sodium Chloride 0.9% 200 ml @ 1.5 MCG/KG/HR 21 .39 mls/hr IV .[id number] [facility] Rx#:[id number] propofoL 1,000 mg In 682.885 456.55 Empty Bag 1 bag @ Titrate IV .Q0M [facility] Rx#: [id number] Tube Feeding 77 77 21 Hemodialysis 300 Other 360 420 120 Output: Urine 0 0 0 Hemodialysis 300 Other: Voiding Method Indwelling Catheter Indwelling Catheter Indwelling Catheter # Voids 4 ABP, PAP, CO, CI - Last Documented Arterial Blood Pressure 95/53 - Exam Morbidly obese, calm and comfortable on a mechanical ventilator. Orotracheal and orogastric tube are both in place. The patient is sedated and paralyzed. Other the patient has developed some subcutaneous edema and this is easily palpable on his neck area and anterior chest bilaterally. He is sedated and paralyzed on his palm and comfortable and suggested a mechanical ventilator. Calm and comfortable and synchronous with the mechanical ventilator. Head exam was generally normal. There was no scleral icterus or corneal arcus. Mucous membranes were moist. HEENT examination is grossly unremarkable. Neck supple. Full range of motion. No adenopathy thyromegaly or neck vein distention. Cardiovascular examination reveals regular rhythm rate. S1-S2 normal. No S3 or S4. No discernible murmur noted. Heart rate 85 bpm. Lungs reveal coarse bilateral breath sounds. Coarse expiratory rhonchi are noted. No wheezes. Basilar crackles appreciated. Breath sounds equal bilaterally. Evidence of subcutaneous emphysema over the anterior chest Abdominal exam revealed normal bowel sounds. The abdomen was soft, non-tender, and without masses, organomegaly, or appreciable enlargement of the abdominal aorta. Extremities are intact. No cyanosis clubbing and there is some increased edema in lower extremity is bilaterally Examination of the skin revealed no evidence of significant rashes, suspicious appearing nevi or other concerning lesions. Neurologic the patient is currently sedated and paralyzed - Labs CBC & Chem 7: 08/23/21 03:55 08/23/21 03:55 Labs: Abnormal Lab Results - Last 24 Hours (Table) 08/22/21 08/22/21 08/22/21 Range/Units 11:00 11:39 13:36 WBC (3.8-10.6) k/uL Neutrophils # (1.3-7.7) k/uL Lymphocytes # (1.0-4.8) k/uL ABG pH 7.20 L (7.35-7.45) ABG pCO2 86 H* (35-45) mmHg ABG pO2 63 L (83-108) mmHg ABG HCO3 33 H (21-25) mmol/L ABG Total CO2 36 H (19-24) mmol/L ABG O2 Saturation 92.0 L (94-97) % Sodium (137-145) mmol/L Potassium 5.2 H (3.5-5.1) mmol/L BUN (9-20) mg/dL Creatinine (0.66-1.25) mg/dL Glucose (74-99) mg/dL POC Glucose (mg/dL) 154 H (75-99) mg/dL Calcium (8.4-10.2) mg/dL Phosphorus (2.5-4.5) mg/dL Lactate Dehydrogenase (313-618) U/L Creatine Kinase (55-170) U/L C-Reactive Protein (<1.0) mg/dL Total Protein (6.3-8.2) g/dL Albumin (3.5-5.0) g/dL 08/22/21 08/22/21 08/23/21 Range/Units 17:10 23:23 03:55 WBC (3.8-10.6) k/uL Neutrophils # (1.3-7.7) k/uL Lymphocytes # (1.0-4.8) k/uL ABG pH (7.35-7.45) ABG pCO2 (35-45) mmHg ABG pO2 (83-108) mmHg ABG HCO3 (21-25) mmol/L ABG Total CO2 (19-24) mmol/L ABG O2 Saturation (94-97) % Sodium 136 L (137-145) mmol/L Potassium 6.5 H* (3.5-5.1) mmol/L BUN 52 H (9-20) mg/dL Creatinine 7.15 H* (0.66-1.25) mg/dL Glucose 187 H (74-99) mg/dL POC Glucose (mg/dL) 154 H 159 H (75-99) mg/dL Calcium 7.0 L (8.4-10.2) mg/dL Phosphorus 11.7 H* (2.5-4.5) mg/dL Lactate Dehydrogenase 2271 H (313-618) U/L Creatine Kinase 216 H (55-170) U/L C-Reactive Protein 58.4 H (<1.0) mg/dL Total Protein 5.9 L (6.3-8.2) g/dL Albumin 2.6 L (3.5-5.0) g/dL 08/23/21 08/23/21 08/23/21 Range/Units 03:55 05:25 05:39 WBC 29.3 H (3.8-10.6) k/uL Neutrophils # 27.8 H (1.3-7.7) k/uL Lymphocytes # 0.5 L (1.0-4.8) k/uL ABG pH 7.10 L* (7.35-7.45) ABG pCO2 87 H* (35-45) mmHg ABG pO2 66 L (83-108) mmHg ABG HCO3 27 H (21-25) mmol/L ABG Total CO2 30 H (19-24) mmol/L ABG O2 Saturation 91.9 L (94-97) % Sodium (137-145) mmol/L Potassium (3.5-5.1) mmol/L BUN (9-20) mg/dL Creatinine (0.66-1.25) mg/dL Glucose (74-99) mg/dL POC Glucose (mg/dL) 166 H (75-99) mg/dL Calcium (8.4-10.2) mg/dL Phosphorus (2.5-4.5) mg/dL Lactate Dehydrogenase (313-618) U/L Creatine Kinase (55-170) U/L C-Reactive Protein (<1.0) mg/dL Total Protein (6.3-8.2) g/dL Albumin (3.5-5.0) g/dL Microbiology - Last 24 Hours (Table) 08/20/21 23:00 Blood Culture - Preliminary Blood No Growth after 48 hours 08/21/21 22:22 Gram Stain - Preliminary Sputum Sputum Culture - Preliminary Assessment and Plan Plan: 1 Acute hypoxemic respiratory failure, secondary to coronavirus associated pneumonia. The patient was intubated on 08/20/2021. He has progressed significantly and the patient has developed severe hypoxemic and hypercapnic respiratory failure. Currently we are allowing permissive hypercapnia. Peak and static pressures are quite elevated and the patient has developed no mediastinum and subcutaneous emphysema. Oxygenation has improved and the patient currently is on a 24-hour PEEP with an FiO2 of 80% and an inspiratory close of 0.2 seconds. Chest x-ray was noted. Blood gases was noted. There is development of worsening of subcutaneous emphysema along the right chest area. No evidence of any pneumothorax on today's evaluation. 2 Elevated inflammatory markers secondary to coronavirus infection. The inflammatory markers remain quite elevated. The pro calcitonin Is also elevation of the protest on a level suggestive an underlying bacterial inf ection. For now, the LDH level is improving. CRP level is still elevated. 3 sepsis with underlying hypotension and acute leukocytosis, likely secondary to underlying sepsis. The patient is hypotensive and hemodynamically unstable on pressors the patient remains on norepinephrine infusion currently on 0.09 mg/kg/m. He remains on a combination of Zosyn and Zyvox 4 sepsis, received a total of 3 L of IV fluids and still on pressors with norepinephrine running at 0.09 mcg/kg per minute and the pressor requirements improved since yesterday. The patient received adequate amount of fluids. The patient is currently on IV Zosyn and Zyvox. Cultures are still pending for now. 5 permissive hypercapnia and respiratory acidosis 6 acute hyperkalemia 7 acute kidney injury, progressive worsening in her renal function and creatinine on HD 8 hypotension/sepsis currently on accommodation fluids and pressors and antibiotics. 9 obesity with a BMI of 42.6 10 SVT , Current rhythm is sinus tachycardia. Plan Continue ventilator support Down to 22 and drop the tidal volume down to 3 80 mL. Repeated blood gases at around noontime postdialysis Complete dialysis today and repeat the potassium level May need to consider bicarb infusion to improve his bicarb level in the serum and hope for a improved potassium control Repeat the blood gases at noontime Continue IV Zosyn and Zyvox Continue Decadron Continue Lovenox for DVT prophylaxis D-dimer was elevated yet the Doppler of the lower extremities have been negative on 2 separate occasions Wean off pressors Monitor fever pattern and leukocytosis. Cultures are negative the patient remains on IV Zosyn and Zyvox and ID is on the case enteral feeding for nutritional support, dietary consultation insulin for Coverage Lovenox 40 mg subcu every 12 hours and the D D was 34 and this wll be rechecked Monitor d-dimer inflammatory markers Continue the rest of the oral multivitamin supplements This continued amiodarone IV and switch him to oral amiodarone 400 mg by mouth twice a day, current cardiac rhythm is sinus Condition is obviously critical continue to follow we'll and make further recommendations based on patient's progress. Condition is obviously critical. The patient is currently in intensive care unit. Sedated and paralyzed. We'll continue to follow make further recommendations based on his progress. This is a critically care evaluation was done and more than 30 minutes. Time with Patient: Greater than 30
[2021-08-23] MEDS: SODIUM CHLORIDE 0.9% 1,000 ML IV SCH (10:56)
[2021-08-23] MEDS: fentaNYL (PF) 2,500 MCG in SODIUM CHLORIDE 0.9% 200 ML IV SCH ×2 (10:58→16:33)
[2021-08-23] MEDS: LINEZOLID 600 MG in DEXTROSE/WATER 1 300ML.BAG IVPB SCH ×2 (11:40→21:17)
[2021-08-23 11:52] LABS: Glucose,Whole Blood 137 mg/dL (75-99)
[2021-08-23 12:22] LABS: ABG Base Excess -3.8 mmol/L; ABG HCO3 26 mmol/L (21-25); ABG Oxygen Saturation 93.2 % (94-97); ABG PO2 72 mmHg (83-108); ABG TCO2 29 mmol/L (19-24)
[2021-08-23 12:23] LABS: ABG PCO2 91 mmHg (35-45); ABG PH 7.07 (7.35-7.45)
[2021-08-23] MEDS: NOREPINEPHRINE 8 MG in SODIUM CHLORIDE 0.9% 250 ML IV SCH ×2 (12:23→22:13)
[2021-08-23] MEDS: CALCIUM ACETATE 667 MG TAB PO SCH ×2 (14:45→18:13)
[2021-08-23] MEDS: DEXTROSE 5% IN WATER 1,000 ML with SODIUM BICARB (1 MEQ/ML) 150 ML IV SCH (16:32)
[2021-08-23 16:49] LABS: Calcium 7.2 mg/dL (8.4-10.2)
[2021-08-23 16:50] LABS: Potassium 6.1 mmol/L (3.5-5.1)
[2021-08-23] MEDS ORDERED: SODIUM ZIRCONIUM CYCLOSILICATE 10 GM PACKET PO ONE (17:30)
[2021-08-23] MEDS ORDERED: DEXTROSE 50% SYRINGE 50 ML IVP ONE ×2 (17:33→21:33)
--- NOTE | 2021-08-23 17:37 | PN ---
PROGRESS NOTE DATE OF SERVICE: 08/23/2021 REASON FOR FOLLOWUP: Pneumonia. INTERVAL HISTORY: The patient is afebrile. However, he has been spiking fever with a last temperature of 102 yesterday afternoon and 100 this morning. The patient remains intubated on the vent, currently on 80% FiO2. No significant purulent secretions in the ET, diarrhea or any other changes reported by the nursing staff. PHYSICAL EXAMINATION: Blood pressure 98/56, pulse of 58, temperature 98.4. He is 92% on 80% FiO2. General description is a middle-aged male intubated on the vent. Respiratory system: Unlabored breathing, decreased intensity of breath sounds. No wheeze. Heart S1, S2. Regular rate and rhythm. Abdomen soft, no tenderness. Extremities no edema of the feet. LABS: Hemoglobin is 13.8, white count .3. Creatinine is up to 7.15. LDH is elevated. Sputum showing presumptive Staph aureus. DIAGNOSTIC IMPRESSION AND PLAN: Patient with acute respiratory failure, multifactorial, with initial diagnosis of COVID- 19 pneumonia, subsequent worsening respiratory failure and possible component of secondary bacterial pneumonia. Sputum is showing a Staph aureus. Patient is covered with Zyvox and Zosyn; to continue, adjusting it further on the basis of the clinical response and culture. Prognosis remains guarded. Continue with supportive care. MMODL / IJN: [id number] /
[2021-08-23 18:10] LABS: Glucose,Whole Blood 242 mg/dL (75-99)
[2021-08-23 18:32] LABS: ABG Base Excess -0.1 mmol/L; ABG HCO3 30 mmol/L (21-25); ABG Oxygen Saturation 91.8 % (94-97); ABG PO2 68 mmHg (83-108); ABG TCO2 33 mmol/L (19-24)
[2021-08-23 18:34] LABS: ABG PCO2 99 mmHg (35-45); ABG PH 7.09 (7.35-7.45)
--- NOTE | 2021-08-23 19:54 | P.PN ---
Subjective Progress Note Date: 08/23/21 36-year-old male patient with Covid associated pneumonia, hospitalized for worsening shortness of breath and generalized weakness and muscle aches. He is a nonvaccinated individual. He was on a nonrebreather facemask. During the course of his illness, he was placed on Airvo at 60 L were notified to 90% and earlier this morning the patient was transitioned to BiPAP and was intubated and mechanically intubated due to continued decline Objective - Vital Signs Vital signs: Vital Signs Temp 100 F H 08/23/21 08:00 Pulse 113 H 08/23/21 09:45 Resp 36 H 08/23/21 09:45 BP 119/66 08/23/21 09:45 Pulse Ox 93 L 08/23/21 09:45 Intake & Output 08/22/21 08/23/21 08/23/21 18:59 06:59 18:59 Intake Total 3301.314 3002.121 450 Output Total 300 0 0 Balance 3001.314 3002.121 450 Weight 153 kg 153 kg Intake: IV 1264 1133 309 ART line 39 33 9 Dextrose 5% in Water 1, 150 000 ml @ 75 mls/hr IV . [id number] ONE with Sodium Bicarb (1 Meq/ml) 150 ml Rx#:[id number] Sodium Chloride 0.9% 1, 1075 1100 300 000 ml @ 50 mls/hr IV . Q20H RACHEL Rx#:[id number] Intake, IV Titration 9592.525 3541.121 Amount Amiodarone 450 mg In 250 Dextrose 5% in Water 250 ml @ 0.5 MG/MIN 16.667 mls/hr IV .Q15H RACHEL Rx#: [id number] Cisatracurium 200 mg In 34.429 165.571 Sodium Chloride 0.9% 180 ml @ 1 MCG/KG/MIN 8.165 mls/hr IV .Q24H RACHEL Rx#: [id number] Linezolid 600 mg In 300 Dextrose/Water 1 300ml. bag @ 150 mls/hr IVPB Q12H RACHEL Rx#:[id number] Norepinephrine 8 mg In 258.000 Sodium Chloride 0.9% 250 ml @ 0.05 MCG/KG/MIN 14. 513 mls/hr IV .[id number] RACHEL Rx#:[id number] Piperacillin-Tazobactam 3 100 .375 gm In Sodium Chloride 0.9% 100 ml @ 25 mls/hr IVPB Q8HR RACHEL Rx# :[id number] Sodium Chloride 0.9% 1, 75 000 ml @ 50 mls/hr IV . Q20H RACHEL Rx#:[id number] fentaNYL (PF) 2,500 mcg 250 In Sodium Chloride 0.9% 200 ml @ 1.5 MCG/KG/HR 21 .39 mls/hr IV .[id number] RACHEL Rx#:[id number] propofoL 1,000 mg In 682.885 556.55 Empty Bag 1 bag @ Titrate IV .Q0M RACHEL Rx#: [id number] Tube Feeding 77 77 21 Hemodialysis 300 Other 360 420 120 Output: Urine 0 0 0 Hemodialysis 300 Other: Voiding Method Indwelling Catheter Indwelling Catheter Indwelling Catheter # Voids 4 ABP, PAP, CO, CI - Last Documented Arterial Blood Pressure 95/53 - Exam Morbidly obese, calm and comfortable on a mechanical ventilator. Head exam was generally normal. There was no scleral icterus or corneal arcus. Mucous membranes were moist. HEENT examination is grossly unremarkable. Neck supple. Full range of motion. No adenopathy thyromegaly or neck vein distention. Cardiovascular examination reveals regular rhythm rate. S1-S2 normal. No S3 or S4. No discernible murmur noted. Heart rate 85 bpm. Lungs reveal coarse bilateral breath sounds. Basilar crackles appreciated. Breath sounds equal bilaterally. Evidence of subcutaneous emphysema over the anterior chest Abdominal exam revealed normal bowel sounds. The abdomen was soft, non-tender, and without masses, organomegaly. Extremities are intact. No cyanosis clubbing and there is some increased edema in lower extremity is bilaterally Neurologic the patient is currently sedated and paralyzed - Labs CBC & Chem 7: 08/23/21 03:55 08/23/21 16:20 Labs: Abnormal Lab Results - Last 24 Hours (Table) 08/22/21 08/22/21 08/22/21 Range/Units 11:00 11:39 13:36 WBC (3.8-10.6) k/uL Neutrophils # (1.3-7.7) k/uL Lymphocytes # (1.0-4.8) k/uL ABG pH 7.20 L (7.35-7.45) ABG pCO2 86 H* (35-45) mmHg ABG pO2 63 L (83-108) mmHg ABG HCO3 33 H (21-25) mmol/L ABG Total CO2 36 H (19-24) mmol/L ABG O2 Saturation 92.0 L (94-97) % Sodium (137-145) mmol/L Potassium 5.2 H (3.5-5.1) mmol/L BUN (9-20) mg/dL Creatinine (0.66-1.25) mg/dL Glucose (74-99) mg/dL POC Glucose (mg/dL) 154 H (75-99) mg/dL Calcium (8.4-10.2) mg/dL Phosphorus (2.5-4.5) mg/dL Lactate Dehydrogenase (313-618) U/L Creatine Kinase (55-170) U/L C-Reactive Protein (<1.0) mg/dL Total Protein (6.3-8.2) g/dL Albumin (3.5-5.0) g/dL 08/22/21 08/22/21 08/23/21 Range/Units 17:10 23:23 03:55 WBC (3.8-10.6) k/uL Neutrophils # (1.3-7.7) k/uL Lymphocytes # (1.0-4.8) k/uL ABG pH (7.35-7.45) ABG pCO2 (35-45) mmHg ABG pO2 (83-108) mmHg ABG HCO3 (21-25) mmol/L ABG Total CO2 (19-24) mmol/L ABG O2 Saturation (94-97) % Sodium 136 L (137-145) mmol/L Potassium 6.5 H* (3.5-5.1) mmol/L BUN 52 H (9-20) mg/dL Creatinine 7.15 H* (0.66-1.25) mg/dL Glucose 187 H (74-99) mg/dL POC Glucose (mg/dL) 154 H 159 H (75-99) mg/dL Calcium 7.0 L (8.4-10.2) mg/dL Phosphorus 11.7 H* (2.5-4.5) mg/dL Lactate Dehydrogenase 2271 H (313-618) U/L Creatine Kinase 216 H (55-170) U/L C-Reactive Protein 58.4 H (<1.0) mg/dL Total Protein 5.9 L (6.3-8.2) g/dL Albumin 2.6 L (3.5-5.0) g/dL 08/23/21 08/23/21 08/23/21 Range/Units 03:55 05:25 05:39 WBC 29.3 H (3.8-10.6) k/uL Neutrophils # 27.8 H (1.3-7.7) k/uL Lymphocytes # 0.5 L (1.0-4.8) k/uL ABG pH 7.10 L* (7.35-7.45) ABG pCO2 87 H* (35-45) mmHg ABG pO2 66 L (83-108) mmHg ABG HCO3 27 H (21-25) mmol/L ABG Total CO2 30 H (19-24) mmol/L ABG O2 Saturation 91.9 L (94-97) % Sodium (137-145) mmol/L Potassium (3.5-5.1) mmol/L BUN (9-20) mg/dL Creatinine (0.66-1.25) mg/dL Glucose (74-99) mg/dL POC Glucose (mg/dL) 166 H (75-99) mg/dL Calcium (8.4-10.2) mg/dL Phosphorus (2.5-4.5) mg/dL Lactate Dehydrogenase (313-618) U/L Creatine Kinase (55-170) U/L C-Reactive Protein (<1.0) mg/dL Total Protein (6.3-8.2) g/dL Albumin (3.5-5.0) g/dL Microbiology - Last 24 Hours (Table) 08/20/21 23:00 Blood Culture - Preliminary Blood No Growth after 48 hours 08/21/21 22:22 Gram Stain - Preliminary Sputum Sputum Culture - Preliminary Assessment and Plan Assessment: 1. Acute hypoxemic respiratory failure, secondary to coronavirus associated pne umonia; - intubated on 08/20/2021 due to severe hypoxemic and hypercapnic respiratory fa ilure. Currently being allowed permissive hypercapnia. Oxygenation has improved - Chest x-ray and blood gases was noted. There is development of worsening of subcutaneous emphysema along the right chest area. - Continue ventilator support; Continue Decadron; Lovenox for DVT prophylaxis 2. Elevated inflammatory markers secondary to coronavirus infection; continue to monitor 3. Sepsis with underlying hypotension and acute leukocytosis, likely secondary to underlying sepsis; remains on norepinephrine infusion; remains on Zosyn and Zyvox - received a total of 3 L of IV fluids; Cultures are still pending for now. 4. Acute hyperkalemia; Complete dialysis today and repeat the potassium level; May need to consider bicarb infusion to improve his bicarb level in the serum and hope for a improved potassium control 5. Acute kidney injury; progressive worsening in her renal function and creatinine on HD 6. SVT; currently sinus tachycardia. 7. Malnutrition; enteral feeding for nutritional support, dietary consultation insulin for Coverage DVT Prophylaxis; SCDs/ Lovenox CODE STATUS; FULL CODE
[2021-08-23] MEDS: AMIODARONE 200 MG TAB PO SCH (20:14)
[2021-08-23 21:01] LABS: ABG Base Excess -1.3 mmol/L; ABG HCO3 29 mmol/L (21-25); ABG Oxygen Saturation 89.7 % (94-97); ABG PO2 64 mmHg (83-108); ABG TCO2 32 mmol/L (19-24)
[2021-08-23 21:05] LABS: ABG PH 7.07 (7.35-7.45)
[2021-08-23 21:06] LABS: ABG PCO2 100 mmHg (35-45); Allen Test Performed? No
[2021-08-23] MEDS ORDERED: SODIUM BICARB 8.4% 50 ML SYR (1 MEQ/ML) IV ONE (21:33)
--- NOTE | 2021-08-23 21:35 | XR ---
EXAMINATION TYPE: XR chest 1V portable DATE OF EXAM: 08/23/2021 COMPARISON: NONE HISTORY: Check tube placement TECHNIQUE: Single view FINDINGS: There is endotracheal tube 6 cm from the prabhjot. There is nasogastric tube in the stomach. There is s ubcutaneous emphysema over the left and right chest. There is soft tissue air also right lateral ches t wall. I see no pneumothorax. There is left subclavian catheter with tip in the superior vena cava. There is some mild infiltrate and atelectasis in the lower lung pace. There is some lucency over the neck that is consistent with soft tissue air and pneumomediastinum. IMPRESSION: Lower lobe pulmonary infiltrates and atelectasis without change compared to the exam this morning. There is evidence for pneumomediastinum increased compared to exam this morning.
[2021-08-23 21:48] LABS: Glucose,Whole Blood 184 mg/dL (75-99)
--- NOTE | 2021-08-23 22:57 | XR ---
EXAMINATION TYPE: XR chest 1V portable DATE OF EXAM: 08/23/2021 COMPARISON: Today HISTORY: Tube placement TECHNIQUE: FINDINGS: There is nasogastric tube in the stomach. There is endotracheal tube 3.5 cm from the prabhjot . There is extensive soft tissue air over the chest. There is some mediastinal emphysema. There is ai r over the base of the neck. Trachea is midline. There is infiltrate in both lower lobes. No obvious pneumothorax. There is left subclavian catheter with tip in the superior vena cava. IMPRESSION: Extensive soft tissue air and also pneumomediastinum without change. Tip of the nasogastr ic tube is not well seen. Tip is probably in the stomach. Pulmonary infiltrates without change.
[2021-08-24 00:42] LABS: Glucose,Whole Blood 163 mg/dL (75-99)
[2021-08-24] MEDS: INSULIN ASPART (NovoLOG) 100 UNIT/ML VIAL SQ SCH ×5 (00:48→23:56)
[2021-08-24] MEDS: ARTIFICIAL TEARS-HYPROMELLOSE DROPS 15 ML BTL BOTH EYES SCH ×7 (00:49→23:56)
[2021-08-24] MEDS: ACETAMINOPHEN TAB 325 MG TAB PO PRN ×2 (00:54→08:42)
[2021-08-24] MEDS: NOREPINEPHRINE 8 MG in SODIUM CHLORIDE 0.9% 250 ML IV SCH ×8 (01:21→21:17)
[2021-08-24] MEDS: fentaNYL (PF) 2,500 MCG in SODIUM CHLORIDE 0.9% 200 ML IV SCH ×3 (04:15→18:07)
[2021-08-24] MEDS: SODIUM CHLORIDE 0.9% 1,000 ML IV SCH (04:51)
[2021-08-24 05:34] LABS: Glucose,Whole Blood 143 mg/dL (75-99)
[2021-08-24 06:30] LABS: ABG Base Excess -1.7 mmol/L; ABG HCO3 28 mmol/L (21-25); ABG Oxygen Saturation 91.8 % (94-97); ABG PO2 70 mmHg (83-108); ABG TCO2 31 mmol/L (19-24)
[2021-08-24 06:35] LABS: ABG PCO2 94 mmHg (35-45); ABG PH 7.09 (7.35-7.45); Allen Test Performed? No
[2021-08-24] MEDS: CALCIUM ACETATE 667 MG TAB PO SCH ×3 (06:43→15:55)
[2021-08-24 07:18] LABS: Calcium 6.9 mg/dL (8.4-10.2); Potassium 5.8 mmol/L (3.5-5.1)
[2021-08-24 08:01] LABS: HCT 41.2 % (39.0-53.0); HGB 13.2 gm/dL (13.0-17.5); MCH 31.5 pg (25.0-35.0); MCHC 32.2 g/dL (31.0-37.0); MCV 97.9 fL (80.0-100.0); Mean Platelet Volume 8.5; Platelet Count 403 k/uL (150-450); RBC 4.21 m/uL (4.30-5.90); RDW 14.5 % (11.5-15.5); WBC 30.3 k/uL (3.8-10.6)
[2021-08-24] MEDS: PANTOPRAZOLE 40 MG/10 ML VIAL IVP SCH (08:21)
[2021-08-24] MEDS: ENOXAPARIN 40 MG/0.4 ML SYRINGE SQ SCH ×2 (08:21→20:20)
[2021-08-24] MEDS: ASCORBIC ACID 500 MG TAB PO SCH (08:21)
[2021-08-24] MEDS: DEXAMETHASONE SOD PHOSPHATE 10 MG/ML 1 ML VIAL IVP SCH ×2 (08:21→20:20)
[2021-08-24] MEDS: AMIODARONE 200 MG TAB PO SCH ×2 (08:21→20:20)
[2021-08-24] MEDS: CHLORHEXIDINE GLUCONATE 15 ML CUP MUCOUS MEM SCH ×2 (08:21→20:20)
[2021-08-24] MEDS: PIPERACILLIN-TAZOBACTAM 3.375 GM in SODIUM CHLORIDE 0.9% 100 ML IVPB SCH ×2 (08:22→20:19)
--- NOTE | 2021-08-24 08:28 | P.PN ---
Subjective Patient is seen in follow-up for acute kidney injury. Started on hemodialysis August 22. Oliguric. On high-dose Levophed. Receiving tube feeds. Potassium level 5.8 this morning. Intubated. In A. fib. Vital signs - on vasopressor support. In A. fib. HEENT: Intubated. Irregular rate and rhythm. Exam discussed with the nurse. Objective - Vital Signs Vital signs: Vital Signs Temp 99.1 F 08/24/21 04:00 Pulse 118 H 08/24/21 07:00 Resp 36 H 08/24/21 07:00 BP 93/50 08/24/21 07:00 Pulse Ox 89 L 08/24/21 07:00 Intake & Output 08/23/21 08/24/21 08/24/21 18:59 06:59 18:59 Intake Total 1010.909 5376.817 224.070 Output Total 5 9 Balance 7128.099 1844.817 224.070 Weight 153 kg 160 kg Intake: IV 833 1236 103 ART line 33 36 3 Dextrose 5% in Water 1, 100 600 50 000 ml @ 50 mls/hr IV . Q23H RACHEL with Sodium Bicarb (1 Meq/ml) 150 ml Rx#:[id number] Sodium Chloride 0.9% 1, 700 600 50 000 ml @ 50 mls/hr IV . Q20H RACHEL Rx#:[id number] Intake, IV Titration 248.609 3339.817 107.070 Amount Cisatracurium 200 mg In 121.25 Sodium Chloride 0.9% 180 ml @ 1 MCG/KG/MIN 8.165 mls/hr IV .Q24H RACHEL Rx#: [id number] Norepinephrine 8 mg In 142.706 699.567 107.070 Sodium Chloride 0.9% 250 ml @ 0.05 MCG/KG/MIN 14. 513 mls/hr IV .[id number] RACHEL Rx#:[id number] fentaNYL (PF) 2,500 mcg 250 250 In Sodium Chloride 0.9% 200 ml @ 1.5 MCG/KG/HR 21 .39 mls/hr IV .[id number] RACHEL Rx#:[id number] propofoL 1,000 mg In 378 578 Empty Bag 1 bag @ Titrate IV .Q0M RACHEL Rx#: [id number] Oral 7 Tube Feeding 70 168 14 Other 240 360 Output: Urine 5 9 Hemodialysis 0 Other: Voiding Method Indwelling Catheter Indwelling Catheter ABP, PAP, CO, CI - Last Documented Arterial Blood Pressure 81/39 - Labs CBC & Chem 7: 08/23/21 03:55 08/24/21 06:00 Labs: Abnormal Lab Results - Last 24 Hours (Table) 08/23/21 08/23/21 08/23/21 Range/Units 03:55 11:50 12:18 D-Dimer (<0.60) mg/L FEU ABG pH 7.07 L* (7.35-7.45) ABG pCO2 91 H* (35-45) mmHg ABG pO2 72 L (83-108) mmHg ABG HCO3 26 H (21-25) mmol/L ABG Total CO2 29 H (19-24) mmol/L ABG O2 Saturation 93.2 L (94-97) % Sodium (137-145) mmol/L Potassium (3.5-5.1) mmol/L Chloride (98-107) mmol/L BUN (9-20) mg/dL Creatinine (0.66-1.25) mg/dL Glucose (74-99) mg/dL POC Glucose (mg/dL) 137 H (75-99) mg/dL Calcium (8.4-10.2) mg/dL Ferritin 5534.0 H (22.0-322.0) ng/mL 08/23/21 08/23/21 08/23/21 Range/Units 16:20 18:07 18:30 D-Dimer (<0.60) mg/L FEU ABG pH 7.09 L* (7.35-7.45) ABG pCO2 99 H* (35-45) mmHg ABG pO2 68 L (83-108) mmHg ABG HCO3 30 H (21-25) mmol/L ABG Total CO2 33 H (19-24) mmol/L ABG O2 Saturation 91.8 L (94-97) % Sodium 134 L (137-145) mmol/L Potassium 6.1 H* (3.5-5.1) mmol/L Chloride 96 L (98-107) mmol/L BUN 42 H (9-20) mg/dL Creatinine 6.74 H (0.66-1.25) mg/dL Glucose 190 H (74-99) mg/dL POC Glucose (mg/dL) 242 H (75-99) mg/dL Calcium 7.2 L (8.4-10.2) mg/dL Ferritin (22.0-322.0) ng/mL 08/23/21 08/23/21 08/23/21 Range/Units 20:50 20:55 21:47 D-Dimer (<0.60) mg/L FEU ABG pH 7.07 L* (7.35-7.45) ABG pCO2 100 H* (35-45) mmHg ABG pO2 64 L (83-108) mmHg ABG HCO3 29 H (21-25) mmol/L ABG Total CO2 32 H (19-24) mmol/L ABG O2 Saturation 89.7 L (94-97) % Sodium (137-145) mmol/L Potassium 5.8 H (3.5-5.1) mmol/L Chloride (98-107) mmol/L BUN (9-20) mg/dL Creatinine (0.66-1.25) mg/dL Glucose (74-99) mg/dL POC Glucose (mg/dL) 184 H (75-99) mg/dL Calcium (8.4-10.2) mg/dL Ferritin (22.0-322.0) ng/mL 08/24/21 08/24/21 08/24/21 Range/Units 00:39 02:00 05:32 D-Dimer (<0.60) mg/L FEU ABG pH (7.35-7.45) ABG pCO2 (35-45) mmHg ABG pO2 (83-108) mmHg ABG HCO3 (21-25) mmol/L ABG Total CO2 (19-24) mmol/L ABG O2 Saturation (94-97) % Sodium (137-145) mmol/L Potassium 5.9 H (3.5-5.1) mmol/L Chloride (98-107) mmol/L BUN (9-20) mg/dL Creatinine (0.66-1.25) mg/dL Glucose (74-99) mg/dL POC Glucose (mg/dL) 163 H 143 H (75-99) mg/dL Calcium (8.4-10.2) mg/dL Ferritin (22.0-322.0) ng/mL 08/24/21 08/24/21 08/24/21 Range/Units 05:56 06:00 07:00 D-Dimer 3.35 H (<0.60) mg/L FEU ABG pH 7.09 L* (7.35-7.45) ABG pCO2 94 H* (35-45) mmHg ABG pO2 70 L (83-108) mmHg ABG HCO3 28 H (21-25) mmol/L ABG Total CO2 31 H (19-24) mmol/L ABG O2 Saturation 91.8 L (94-97) % Sodium 136 L (137-145) mmol/L Potassium 5.8 H (3.5-5.1) mmol/L Chloride 97 L (98-107) mmol/L BUN 46 H (9-20) mg/dL Creatinine 8.01 H* (0.66-1.25) mg/dL Glucose 192 H (74-99) mg/dL POC Glucose (mg/dL) (75-99) mg/dL Calcium 6.9 L (8.4-10.2) mg/dL Ferritin (22.0-322.0) ng/mL Microbiology - Last 24 Hours (Table) 08/20/21 23:00 Blood Culture - Preliminary Blood No Growth after 72 hours 08/21/21 22:22 Gram Stain - Preliminary Sputum Sputum Culture - Preliminary Presumptive Staph aureus Assessment and Plan Plan: Assessment: 1. Acute kidney injury secondary to ATN secondary to septic shock. Baseline creatinine near 1. Oliguric. Started on hemodialysis August 22. 2. Acute hypoxic and hypercapnic respiratory failure secondary to covid-19 pneumonia. Intubated. 3. Septic shock secondary to COVID-19 infection on vasopressor support. 4. Hyperkalemia secondary to acute kidney injury, oliguric. 5. A. fib with RVR maintained on amiodarone drip. Status post cardioversion. 6. Hyperphosphatemia secondary to acute kidney injury on phoslo. Plan: Increase rate of bicarb drip to 75 mL an hour. Maintain tube feeds. Hemodialysis today and tomorrow. Wean FiO2 and vasopressors. Add Lokelma.
[2021-08-24] MEDS: ALBUTEROL HFA INHALER INHALATION SCH ×4 (08:43→19:43)
[2021-08-24] MEDS: ZINC SULFATE 220 MG CAP PO SCH (09:09)
[2021-08-24] MEDS: SODIUM ZIRCONIUM CYCLOSILICATE 10 GM PACKET PO SCH ×3 (09:09→22:43)
--- NOTE | 2021-08-24 09:37 | P.PN ---
Subjective Progress Note Date: 08/24/21 on 2020 on seeing the patient for a follow-up. This is a pleasant 36-year-old male patient with Covid associated pneumonia. The patient was hospitalized for worsening shortness of breath and generalized weakness and muscle aches. He is a nonvaccinated individual. He was on a nonrebreather fa cemask. During the course of his illness, he was placed on Airvo at 60 L were notified to 90% and earlier this morning the patient was transitioned to BiPAP which is currently at the pressure of 15/5 with an FiO2 of 100%. The chest x- ray showing bilateral diffuse pulmonary infiltrates. Doppler of the lower extremity has been negative. The patient has blood work which showed a d-dimer of 30.2. His LDH level was elevated at 1463 and the CRP level is at 12.3. The patient is white cell count of 9.28 with a hemoglobin of 16.4 and a platelet count of 305. Electrodes are within normal limits. The patient was treated with a combination of Decadron 6 mg IV every 24 hours. He is on Lovenox 40 mg subcu twice a day. He is on normal saline at the rate of 75 mL an hour. He is also taking oral zinc and vitamin C. Noted the patient's has not received any other outpatient treatment prior to his hospitalization. He did not receive monoclonal antibodies. He was symptomatic around 9 days prior to him coming to the hospital. The patient is currently on a BiPAP at a pressure of 15/5 cm of w ater with an FiO2 of 100%. The patient was also placed in a prone body positioning which obviously helped him with his oxygenation and the patient's pulse ox is up to 91% On 08/20/2021, the patient is still struggling with his breathing. Is a bit tachypneic and he is absolutely dependent on the BiPAP which is set at a pressure of 16/6 cm of water and FiO2 100%. He is able to generate tidal volume of around above in 1000 and his respiratory rate currently is at 32 as the patient is laying down in a prone body position. The patient is a nonvaccinated individual. He had progressive worsening his oxygenation. He was on a nonrebreather and later on on an Airvo and currently is on a BiPAP. The patient is on Decadron 6 mg IV every 12 hours and the patient is also on Lovenox 40 mg subcu for DVT prophylaxis. He was on Baricitinib that was discontinued. I would suggest putting the patient back on Baricitinib and I have already discussed this with infectious disease. In terms of his inflammatory markers, the patient has a d-dimer of 34 and his LDH level is up to 4263 and his CRP leve l is up to 25.3. No other labs are available. Unfortunately his inflammatory markers are on the rise. In terms of treatment, as mentioned, he is on Decadron 6 mg IV every 12 hours. Lovenox is 40 mg subcu every 12 hours. His Doppler of the lower extremities was done on 08/18/2021 was negative for DVT. The elevation d-dimer along with LDH rise is consistent with worsening of his forward 19 related pneumonia and explained his progressive respiratory failure. Pulmonary embolism is felt to be less likely. We'll repeat the Doppler. 08/21/2021, the patient is intubated on a mechanical ventilator. The patient got intubated yesterday without any major difficulties. We had to utilize low t idal volume high PEEP system to maintain his oxygenation. Immediately postintubation, the patient was sedated with propofol and currently propofol is running at 75 Kingsley respiratory per minute. He is also on fentanyl running at 1 mcg/kg/h. The patient is paralyzed with Nimbex at 1 mg/kg per minute. He is adequately sedated and paralyzed. Post intubation, he was kept on assist control mode at the rate of 36 with a tidal volume of 400 and FiO2 of 100% and a day and currently is at 80% and a PEEP is currently at 24. Blood gases from this morning showed a pH of 7.05 with a pCO2 of 96 and pO2 of 169. Based on that, the FiO2 was up around 80%. I gave the patient a total of 150 mEq of sod ium bicarbonate the patient was started on a bicarb infusion. Note that the potassium level was also elevated. The patient was given D50 insulin and a repeat potassium level is pending for now. Note that he also developed an acute kidney injury. Creatinine is up to 1.75. Overnight, he received a total of 2 L of normal saline and the liver under liter was given making a total of 3 L. His urine output is in the order of 5-10 mL an hour. He has a subclavian triple- lumen catheter in place. The patient remains on Decadron. Baricitinib was discontinued. Based on his post intubation chest x-ray, there was worsening consolidation of the right lower lung and I started him on IV cefepime and blood cultures and sputum cultures were sent. The patient has a white cell count of 29.2 today with a hemoglobin of 16.5, his LDH level was as high as 4263 and currently is down to 3458 and his CRP level is at 26. Pro-Level Is at 0.27. The Patient Is Running a Fever and He Has a Low-Grade Fever of 100.5. Enteral Feeding for Nutritional Support Has Been Not Started yet. Noted the patient was quite hypotensive also and this developed overnight. The patient was as high as 27 g of norepinephrine infusion and this was gradually weaned off to 13 g per minute. His most recent blood pressure is 100/59 with a mean of 73. 08/22/2021, the patient's condition is more critical and worse compared to yesterday. The patient this morning remains intubated on a mechanical ventilator. His sedated and is currently on propofol running at 75 mcg/kg per minute and fentanyl is running at 1.5 mcg/kg/h. The patient is also completed paralyzed with Nimbex at 1.5 mg/kg/m. He is very much success with the mechanical ventilator. He remains on assist control mode at the rate of 36, tidal volume of 400, FiO2 of 80% and a PEEP of 24. The peak airway pressure is 43. Noted the patient has a inspiratory pause of 0.2 seconds and he is on a inverse ratio 1.2-1. Gases from today shows a pH of 7.049 with a pCO2 of 96 and pO2 169. Peak airway pressure was 43 with a static airway pressure of 37. Ch est x-ray showing worsening in the bilateral pulmonary infiltrates with worsening consolidation lung bases bilaterally especially in the right. The patient also has developed subcutaneous emphysema and pneumomediastinum. There is no evidence of any pneumothorax at this point in time. No significant orotracheal secretions. I was hoping this patient with some bicarb infusion based on his underlying permissive hypercapnia respiratory acidosis. Bicarb infusion was running at the rate of 75 mL an hour. This was discontinued by nephrology and I would like to return back again as the patient is significantly acidotic at this point. At the same time, the patient is febrile. Pro- calcitonin level is elevated. He was started on IV Zosyn as an empiric antibiotic coverage. ID is on the case. He remains on Decadron for his community related pneumonia. His inflammatory markers today continued to be significantly elevated. His LDH level currently is at 3458 and the CRP level is at 26. Hemodynamically, the patient is still requiring pressors. He is currently running on norepinephrine at 0.11 g/kg per minute. Overnight, the patient had several runs of SVT. He required cardioversion as the patient became quite significantly hemodynamically unstable. Note that he had to be cardioverted on 3 different occasions. Ultimately was given amiodarone bolus and currently is on amiodarone at 1 mg per minute. Cardiac rhythm is currently in sinus tachycardia. He has also developed worsening renal functions. Creatinine is up to 5.28. Serum bicarb is at 36. Urine output is in order of 0 mL an hour. The patient is receiving enteral feeding for nutritional support. Currently is on vital AF at the rate of 70 mL an hour which is currently at goal. Rest of the blood work shows a white cell count 24.7 with a hemoglobin of 13.5. On 2020, the patient remains intubated on a mechanical ventilator. The patient is also sedated and paralyzed. Over the past 24 hours, the patient has remained essentially stable. He is a case of COVID 19 related pneumonia with ARDS and hypoxic respiratory failure. This morning, the patient remains on a combination of propofol and fentanyl. Propofol is running at the rate of 65 mcg/kg per minute and the fentanyl is running at 1.5 mcg/kg/h. The patient is also on Nimbex running at 1 mcg/kg per minute. The patient remains on a mechanical ventilator. Earlier this morning, the patient was on assist-control at the rate of 36, tidal volume of 400, FiO2 of 80% with a PEEP of 24. His peak airway pressure was 41 and a static airway pressure was 39. His morning blood gases showed a pH of 7.1 with a pCO2 of 87 and pO2 of 66. His chest x-ray showed diffuse bilateral pulmonary infiltrates and there was worsening of the subcutaneous emphysema which is essentially a sign of barotrauma. No evidence of any pneumothorax. ET tube had to be pushed by another 1 cm. There is continuing pulmonary infiltrates with patchy airspace disease bilaterally. At the same time, the patient also had electrolyte abnormalities and the potassium level was as high as 6.5 earlier this morning. Nephrology has been involved. The patient was treated for this and the patient was given D50 insulin and bicarb. Currently the patient is undergoing dialysis. No ultrafiltration will be done and the goal is to improve the potassium. We will recheck the potassium and a blood gases following his dialysis. Meanwhile, the mechanical ventilator, few changes were done to lower his peak and static pressure. A drop the PEEP down to 22. FiO2 of 80%. Drop the tidal volume down to the 80. With those changes, his peak airway pressure is 41 with a static pressure 39 with a static pressure of 36. The patient is currently afebrile. He was running a fever throughout the day yesterday. He is covered with broad-spectrum antibiotics and the patient is currently on a combination of IV Zosyn and he is also on Zyvox. ID is on the case making arrangements on antibiotic coverage. Meanwhile, the patient is on Decadron 6 mg IV every 12 hours. All of the cultures are negative thus far. In terms of his inflammatory markers, the patient LDH level is sl ightly improved and is currently down to 2271 and his CRP level is down to 58.4. The patient also has an acute kidney injury. Potassium level is up to 6.5. His BUN is at 52 with a creatinine of 7.15. His white cell count is higher at 29.3. He is on vital AF at the rate of 70 mL an hour. Cardiac rhythm is sinus. On examination, he has developed some subcutaneous emphysema along the neck and the chest and abdominal wall. 08/24/2021, patient is in a critical condition. He is a young 36-year-old male patient with COVID 19 related pneumonia, ARDS, superinfection with staph aureus in his lungs, possible ventilator associated pneumonia, and addition to acute kidney injury requiring dialysis and the patient remains in shock state. In terms of his care, the patient is do not propofol which is running at 50 mcg/kg per minute and fentanyl is running at 1.5 mcg/kg/h. He remains sedated with Nimbex. The patient remains on a mechanical ventilator. His peak airway pressures 41. His static airway pressure is 37. He remains on assist control mode at a rate of 36, tidal volumes of 380, FiO2 is currently at 100% and a PEEP is back up to 24. The blood gases from today shows a pH of 7.09 with a pCO2 of 94 and pO2 of 70. Chest x-ray showing diffuse bilateral pulmonary infiltrates and addition to subcutaneous emphysema which has gotten worse since yesterday. On examination, he does have emphysema subcutaneously throughout his chest and neck area. No evidence of any pneumothorax. The patient's hemodynamically still requiring pressors. He is currently on norepinephrine running at 0.5 Kingsley respiratory kilogram per minute. Vasopressin be also started. His hypotension is probably septic in nature as the patient was also found to have staph aureus in his sputum. The patient is currently on a combination of Zyvox and Zosyn. He is started on a bicarb infusion knowing that he has permissive hypercapnia and respiratory acidosis. He has required several doses of bicarb yesterday and the patient is currently on a bicarb infusion with a total of 150 mEq of sodium bicarbonate running at 75 mL an hour. The potassium level today is at 5.8 and the patient is going to be attempted for another session of hemodialysis today. In terms of his blood work, the white cell count is currently at 30.3 with a hemoglobin of 13.2. His d-dimer is at 3.3. His inflammatory markers from yesterday were improving. His LDH level was 2271 and his CRP level was at 58. Electrolytes from today show a sodium of 136, BUN of 46 with a creatinine of 8.01. Blood sugar is at 143. His cardiac rhythm is still sinus tachycardia. He continues to receive Nepro at the rate of 40 mL an hour. Condition of his distal highly critical. He is running fever still. The despite his ongoing broad-spectrum antibiotic coverage. Objective - Vital Signs Vital signs: Vital Signs Temp 99.1 F 08/24/21 04:00 Pulse 118 H 08/24/21 07:00 Resp 36 H 08/24/21 07:00 BP 93/50 08/24/21 07:00 Pulse Ox 89 L 08/24/21 07:00 Intake & Output 08/23/21 08/24/21 08/24/21 18:59 06:59 18:59 Intake Total 8757.194 3290.817 266.834 Output Total 5 9 Balance 5241.522 1392.817 266.834 Weight 153 kg 160 kg Intake: IV 833 1236 103 ART line 33 36 3 Dextrose 5% in Water 1, 100 600 50 000 ml @ 50 mls/hr IV . Q23H RACHEL with Sodium Bicarb (1 Meq/ml) 150 ml Rx#:[id number] Sodium Chloride 0.9% 1, 700 600 50 000 ml @ 50 mls/hr IV . Q20H [facility]AC[facility] Rx#:[id number] Intake, IV Titration 115.482 5680.817 149.834 Amount Cisatracurium 200 mg In 121.25 Sodium Chloride 0.9% 180 ml @ 1 MCG/KG/MIN 8.165 mls/hr IV .Q24H [facility]AC[facility] Rx#: [id number] Norepinephrine 8 mg In 142.706 699.567 107.070 Sodium Chloride 0.9% 250 ml @ 0.05 MCG/KG/MIN 14. 513 mls/hr IV .[id number] [facility] Rx#:[id number] fentaNYL (PF) 2,500 mcg 250 250 In Sodium Chloride 0.9% 200 ml @ 1.5 MCG/KG/HR 21 .39 mls/hr IV .[id number] [facility] Rx#:[id number] propofoL 1,000 mg In 378 578 42.764 Empty Bag 1 bag @ Titrate IV .Q0M [facility] Rx#: [id number] Oral 7 Tube Feeding 70 168 14 Other 240 360 Output: Urine 5 9 Hemodialysis 0 Other: Voiding Method Indwelling Catheter Indwelling Catheter ABP, PAP, CO, CI - Last Documented Arterial Blood Pressure 81/39 - Exam Morbidly obese, calm and comfortable on a mechanical ventilator. Orotracheal and orogastric tube are both in place. The patient is sedated and paralyzed. Other the patient has developed some subcutaneous edema and this is easily palpable on his neck area and anterior chest bilaterally. He is sedated and paralyzed on his palm and comfortable and suggested a mechanical ventilator. Calm and comfortable and synchronous with the mechanical ventilator. Head exam was generally normal. There was no scleral icterus or corneal arcus. Mucous membranes were moist. HEENT examination is grossly unremarkable. Neck supple. Full range of motion. No adenopathy thyromegaly or neck vein distention. Cardiovascular examination reveals regular rhythm rate. S1-S2 normal. No S3 or S4. No discernible murmur noted. Heart rate 85 bpm. Lungs reveal coarse bilateral breath sounds. Coarse expiratory rhonchi are noted. No wheezes. Basilar crackles appreciated. Breath sounds equal bilaterally. Evidence of subcutaneous emphysema over the anterior chest Abdominal exam revealed normal bowel sounds. The abdomen was soft, non-tender, and without masses, organomegaly, or appreciable enlargement of the abdominal aorta. Extremities are intact. No cyanosis clubbing and there is some increased edema in lower extremity is bilaterally Examination of the skin revealed no evidence of significant rashes, suspicious appearing nevi or other concerning lesions. Neurologic the patient is currently sedated and paralyzed - Labs CBC & Chem 7: 08/24/21 06:00 08/24/21 06:00 Labs: Abnormal Lab Results - Last 24 Hours (Table) 08/23/21 08/23/21 08/23/21 Range/Units 03:55 11:50 12:18 WBC (3.8-10.6) k/uL RBC (4.30-5.90) m/uL D-Dimer (<0.60) mg/L FEU ABG pH 7.07 L* (7.35-7.45) ABG pCO2 91 H* (35-45) mmHg ABG pO2 72 L (83-108) mmHg ABG HCO3 26 H (21-25) mmol/L ABG Total CO2 29 H (19-24) mmol/L ABG O2 Saturation 93.2 L (94-97) % Sodium (137-145) mmol/L Potassium (3.5-5.1) mmol/L Chloride (98-107) mmol/L BUN (9-20) mg/dL Creatinine (0.66-1.25) mg/dL Glucose (74-99) mg/dL POC Glucose (mg/dL) 137 H (75-99) mg/dL Calcium (8.4-10.2) mg/dL Ferritin 5534.0 H (22.0-322.0) ng/mL 08/23/21 08/23/21 08/23/21 Range/Units 16:20 18:07 18:30 WBC (3.8-10.6) k/uL RBC (4.30-5.90) m/uL D-Dimer (<0.60) mg/L FEU ABG pH 7.09 L* (7.35-7.45) ABG pCO2 99 H* (35-45) mmHg ABG pO2 68 L (83-108) mmHg ABG HCO3 30 H (21-25) mmol/L ABG Total CO2 33 H (19-24) mmol/L ABG O2 Saturation 91.8 L (94-97) % Sodium 134 L (137-145) mmol/L Potassium 6.1 H* (3.5-5.1) mmol/L Chloride 96 L (98-107) mmol/L BUN 42 H (9-20) mg/dL Creatinine 6.74 H (0.66-1.25) mg/dL Glucose 190 H (74-99) mg/dL POC Glucose (mg/dL) 242 H (75-99) mg/dL Calcium 7.2 L (8.4-10.2) mg/dL Ferritin (22.0-322.0) ng/mL 08/23/21 08/23/21 08/23/21 Range/Units 20:50 20:55 21:47 WBC (3.8-10.6) k/uL RBC (4.30-5.90) m/uL D-Dimer (<0.60) mg/L FEU ABG pH 7.07 L* (7.35-7.45) ABG pCO2 100 H* (35-45) mmHg ABG pO2 64 L (83-108) mmHg ABG HCO3 29 H (21-25) mmol/L ABG Total CO2 32 H (19-24) mmol/L ABG O2 Saturation 89.7 L (94-97) % Sodium (137-145) mmol/L Potassium 5.8 H (3.5-5.1) mmol/L Chloride (98-107) mmol/L BUN (9-20) mg/dL Creatinine (0.66-1.25) mg/dL Glucose (74-99) mg/dL POC Glucose (mg/dL) 184 H (75-99) mg/dL Calcium (8.4-10.2) mg/dL Ferritin (22.0-322.0) ng/mL 08/24/21 08/24/21 08/24/21 Range/Units 00:39 02:00 05:32 WBC (3.8-10.6) k/uL RBC (4.30-5.90) m/uL D-Dimer (<0.60) mg/L FEU ABG pH (7.35-7.45) ABG pCO2 (35-45) mmHg ABG pO2 (83-108) mmHg ABG HCO3 (21-25) mmol/L ABG Total CO2 (19-24) mmol/L ABG O2 Saturation (94-97) % Sodium (137-145) mmol/L Potassium 5.9 H (3.5-5.1) mmol/L Chloride (98-107) mmol/L BUN (9-20) mg/dL Creatinine (0.66-1.25) mg/dL Glucose (74-99) mg/dL POC Glucose (mg/dL) 163 H 143 H (75-99) mg/dL Calcium (8.4-10.2) mg/dL Ferritin (22.0-322.0) ng/mL 08/24/21 08/24/21 08/24/21 Range/Units 05:56 06:00 06:00 WBC 30.3 H (3.8-10.6) k/uL RBC 4.21 L (4.30-5.90) m/uL D-Dimer (<0.60) mg/L FEU ABG pH 7.09 L* (7.35-7.45) ABG pCO2 94 H* (35-45) mmHg ABG pO2 70 L (83-108) mmHg ABG HCO3 28 H (21-25) mmol/L ABG Total CO2 31 H (19-24) mmol/L ABG O2 Saturation 91.8 L (94-97) % Sodium 136 L (137-145) mmol/L Potassium 5.8 H (3.5-5.1) mmol/L Chloride 97 L (98-107) mmol/L BUN 46 H (9-20) mg/dL Creatinine 8.01 H* (0.66-1.25) mg/dL Glucose 192 H (74-99) mg/dL POC Glucose (mg/dL) (75-99) mg/dL Calcium 6.9 L (8.4-10.2) mg/dL Ferritin (22.0-322.0) ng/mL 08/24/21 Range/Units 07:00 WBC (3.8-10.6) k/uL RBC (4.30-5.90) m/uL D-Dimer 3.35 H (<0.60) mg/L FEU ABG pH (7.35-7.45) ABG pCO2 (35-45) mmHg ABG pO2 (83-108) mmHg ABG HCO3 (21-25) mmol/L ABG Total CO2 (19-24) mmol/L ABG O2 Saturation (94-97) % Sodium (137-145) mmol/L Potassium (3.5-5.1) mmol/L Chloride (98-107) mmol/L BUN (9-20) mg/dL Creatinine (0.66-1.25) mg/dL Glucose (74-99) mg/dL POC Glucose (mg/dL) (75-99) mg/dL Calcium (8.4-10.2) mg/dL Ferritin (22.0-322.0) ng/mL Microbiology - Last 24 Hours (Table) 08/20/21 23:00 Blood Culture - Preliminary Blood No Growth after 72 hours 08/21/21 22:22 Gram Stain - Preliminary Sputum Sputum Culture - Preliminary Presumptive Staph aureus Assessment and Plan Plan: 1 Acute hypoxemic respiratory failure, secondary to coronavirus associated pneumonia. The patient was intubated on 08/20/2021. He has progressed significantly and the patient has developed severe hypoxemic and hypercapnic respiratory failure. Currently we are allowing permissive hypercapnia. Peak and static pressures are quite elevated and the patient has developed no mediastinum and subcutaneous emphysema. Oxygenation has improved and the patient currently is on a 24-hour PEEP with an FiO2 of 100% and an inspiratory close of 0.2 seconds. Chest x-ray was noted. Blood gases was noted. There is development of worsening of subcutaneous emphysema along the right chest area. No evidence of any pneumothorax on today's evaluation. I would say, his overall pulmonary status slightly worse compared to yesterday. The blood. He is showing permissive hypercapnia with a pH of 7.09 and the patient started on a bicarb infusion. There is worsening in his appearance emphysema compared to yesterday. No evidence of any pneumothorax. The patient Is a mechanical ventilator settings for now. There may be a superinfection with staph aureus, consider hospital-acquired pneumonia. The patient was receiving Baricitinib before being intubated. This medication has been discontinued already. 2 Elevated inflammatory markers secondary to coronavirus infection. The inflammatory markers remain quite elevated. The pro calcitonin Is also elevation of the protest on a level suggestive an underlying bacterial infection. For now, the LDH level is improving. CRP level is still elevated. 3 sepsis with underlying hypotension and acute leukocytosis, likely secondary to underlying sepsis. The patient is hypotensive and hemodynamically unstable on pressors the patient remains on norepinephrine infusion currently on 0.5 mg /kg/m. He remains on a combination of Zosyn and Zyvox. The patient continues to require pressors in the norepinephrine infusion is running at 0.5 mcg/kg per minute. 4 sepsis, received a total of 3 L of IV fluids and still on pressors with norepinephrine running at 0.5 mcg/kg per minute 5 permissive hypercapnia and respiratory acidosis 6 acute hyperkalemia 7 acute kidney injury, progressive worsening in her renal function and creatinine on HD, the patient is also on a bicarb infusion 8 hypotension/sepsis currently on accommodation fluids and pressors and antibiotics. 9 obesity with a BMI of 42.6 10 SVT , Current rhythm is sinus tachycardia. Plan Continue ventilator support I'm going to keep the PEEP at 24 tidal volume down to 3 80 mL. Repeated blood gases at around noontime postdialysis and the patient be kept on a bicarb infusion for now. Complete dialysis today and repeat the potassium level Continue IV Zosyn and Zyvox Continue Decadron Continue Lovenox for DVT prophylaxis Monitor fever pattern and leukocytosis. Cultures are negative the patient remains on IV Zosyn and Zyvox and ID is on the case, the patient was found to have staph aureus in the sputum enteral feeding for nutritional support, dietary consultation insulin for Coverage Lovenox 40 mg subcu every 12 hours and the D D was 3.35 Monitor d-dimer inflammatory markers Continue the rest of the oral multivitamin supplements Continue amiodarone 400 mg by mouth twice a day, current cardiac rhythm is sinus Condition is obviously critical continue to follow we'll and make further recommendations based on patient's progress. Condition is obviously critical. The patient is currently in intensive care unit. Sedated and paralyzed. We'll continue to follow make further recommendations based on his progress. This is a critically care evaluation was done and more than 30 minutes. Time with Patient: Greater than 30
[2021-08-24] MEDS: CISATRACURIUM 200 MG in SODIUM CHLORIDE 0.9% 180 ML IV SCH ×2 (10:29→22:45)
[2021-08-24 10:39] LABS: Metamyelocytes % 1 %; Neutrophils % (M) 89 %; Nucleated Red Blood Cells 0 /100 WBC (0-0)
[2021-08-24 10:41] LABS: Band Neutrophils % 2 %; Monocytes # (M) 2.42 k/uL (0-1.0); Poikilocytosis (M) Present; Total Cells Counted 200; Toxic Granulation Present
[2021-08-24] MEDS: SODIUM CHLORIDE 0.9% 150 ML with VASOPRESSIN 60 UNIT IV SCH ×2 (10:43)
[2021-08-24] MEDS: LINEZOLID 600 MG in DEXTROSE/WATER 1 300ML.BAG IVPB SCH ×2 (12:15→22:44)
[2021-08-24 17:46] LABS: Glucose,Whole Blood 176 mg/dL (75-99)
[2021-08-24] MEDS: DEXTROSE 5% IN WATER 1,000 ML with SODIUM BICARB (1 MEQ/ML) 150 ML IV SCH ×2 (20:19→20:35)
--- NOTE | 2021-08-24 22:00 | PN ---
PROGRESS NOTE DATE OF SERVICE: 08/24/2021. REASON FOR FOLLOW UP: Pneumonia. INTERVAL COURSE: The patient 102.2 degrees Fahrenheit. The patient is require some pressor support. FiO2 is currently still at 100%. No significant purulent secretions thru the ET, diarrhea or any other changes reported by nursing staff. PHYSICAL EXAMINATION: Blood pressure 101/60 with a pulse of 111. Temperature 100. He is 92% on 100% FIO2. General description is a middle-aged male lying in bed in no distress. Respiratory system: Unlabored breathing, decreased intensity of breath sounds. No wheeze. Heart S1, S2. Regular rate and rhythm. Abdomen soft. No tenderness. LABS: Hemoglobin is 4.2, BUN 30.3, creatinine 0.01. DIAGNOSTIC IMPRESSION AND PLAN: Patient with fever in this patient with acute respiratory failure secondary to Covid 19 pneumonia and more likely , the patient is on broad spectrum antibiotics in the form of Zosyn and Zyvox fever more likely etiology. Will continue current antibiotics along with steroids and monitor clinical course closely. Prognosis remains to be guarded. MMODL / IJN: [id number] /
[2021-08-24 23:51] LABS: Glucose,Whole Blood 153 mg/dL (75-99)
[2021-08-25] MEDS: NOREPINEPHRINE 8 MG in SODIUM CHLORIDE 0.9% 250 ML IV SCH ×11 (00:11→22:30)
[2021-08-25] MEDS: fentaNYL (PF) 2,500 MCG in SODIUM CHLORIDE 0.9% 200 ML IV SCH ×3 (01:36→18:37)
[2021-08-25] MEDS: SODIUM CHLORIDE 0.9% 1,000 ML IV SCH ×2 (03:07→20:52)
[2021-08-25] MEDS: ARTIFICIAL TEARS-HYPROMELLOSE DROPS 15 ML BTL BOTH EYES SCH ×5 (03:31→20:51)
[2021-08-25] MEDS: DEXTROSE 5% IN WATER 1,000 ML with SODIUM BICARB (1 MEQ/ML) 150 ML IV SCH ×3 (05:25→20:50)
[2021-08-25 05:40] LABS: Glucose,Whole Blood 208 mg/dL (75-99)
[2021-08-25] MEDS: INSULIN ASPART (NovoLOG) 100 UNIT/ML VIAL SQ SCH ×3 (05:49→18:11)
[2021-08-25 05:58] LABS: ABG Base Excess -1.7 mmol/L; ABG HCO3 28 mmol/L (21-25); ABG Oxygen Saturation 87.2 % (94-97); ABG PO2 60 mmHg (83-108); ABG TCO2 31 mmol/L (19-24); Allen Test Performed? Yes
[2021-08-25 06:04] LABS: Albumin 2.5 g/dL (3.5-5.0); Potassium 5.4 mmol/L (3.5-5.1); Total Bilirubin 0.7 mg/dL (0.2-1.3); Total Protein 5.4 g/dL (6.3-8.2)
[2021-08-25 06:17] LABS: ABG PCO2 91 mmHg (35-45)
[2021-08-25] MEDS: CALCIUM ACETATE 667 MG TAB PO SCH ×3 (06:32→17:05)
[2021-08-25 06:48] LABS: HCT 38.7 % (39.0-53.0); HGB 12.4 gm/dL (13.0-17.5); MCH 31.7 pg (25.0-35.0); MCHC 32.2 g/dL (31.0-37.0); MCV 98.7 fL (80.0-100.0); Mean Platelet Volume 8.2; Platelet Count 408 k/uL (150-450); Poikilocytosis Slight; RBC 3.92 m/uL (4.30-5.90); RDW 14.7 % (11.5-15.5); WBC 28.1 k/uL (3.8-10.6)
[2021-08-25] MEDS: ALBUTEROL HFA INHALER INHALATION SCH ×4 (07:30→19:03)
[2021-08-25 07:37] LABS: C Reactive Protein 20.3 mg/dL (<1.0)
[2021-08-25] MEDS: CHLORHEXIDINE GLUCONATE 15 ML CUP MUCOUS MEM SCH ×2 (08:10→20:51)
[2021-08-25] MEDS: ASCORBIC ACID 500 MG TAB PO SCH (08:10)
[2021-08-25] MEDS: PIPERACILLIN-TAZOBACTAM 3.375 GM in SODIUM CHLORIDE 0.9% 100 ML IVPB SCH ×2 (08:10→20:52)
[2021-08-25] MEDS: ENOXAPARIN 40 MG/0.4 ML SYRINGE SQ SCH ×2 (08:11→20:51)
[2021-08-25] MEDS: ZINC SULFATE 220 MG CAP PO SCH (08:11)
[2021-08-25] MEDS: AMIODARONE 200 MG TAB PO SCH (08:11)
[2021-08-25] MEDS: DEXAMETHASONE SOD PHOSPHATE 10 MG/ML 1 ML VIAL IVP SCH ×2 (08:11→20:51)
[2021-08-25] MEDS: SODIUM ZIRCONIUM CYCLOSILICATE 10 GM PACKET PO SCH ×3 (08:11→20:52)
[2021-08-25] MEDS: PANTOPRAZOLE 40 MG/10 ML VIAL IVP SCH (08:11)
--- NOTE | 2021-08-25 08:32 | XR ---
EXAMINATION TYPE: XR chest 1V portable DATE OF EXAM: 08/25/2021 COMPARISON: 08/23/2021 INDICATION: Covid TECHNIQUE: Single frontal view of the chest is obtained semiupright position. FINDINGS: The heart size is normal. The pulmonary vasculature is distinct. Diffuse increased lung markings are present. Findings masslike improvement. Previous subcutaneous emphysema on the right is not as well-visualized . There is a small amount of left subcutaneous emphysema. Endotracheal tube tip is above the prabhjot. Nasogastric tube transverses the thorax. Left-sided cathet er is present with the tip in the superior vena cava region. No obvious pneumothorax is evident. IMPRESSION: 1. Diffuse patchy infiltrate may have slight improvement over the interval. 2. Diminishing subcutaneous emphysema. No pneumothorax is evident on this image. 3. Follow up exams are recommended
--- NOTE | 2021-08-25 08:45 | P.PN ---
Subjective Patient is seen in follow-up for acute kidney injury. Started on hemodialysis August 22. Oliguric. On Levophed and vasopressin. Also on bicarb drip. Receiving tube feeds. Potassium level 5.4 this morning. Intubated. Vital signs - on vasopressor support. In A. fib. HEENT: Intubated. Irregular rate and rhythm. Trace edema. Objective - Vital Signs Vital signs: Vital Signs Temp 100.2 F H 08/25/21 07:00 Pulse 113 H 08/25/21 07:00 Resp 36 H 08/25/21 07:00 BP 111/64 08/25/21 07:00 Pulse Ox 88 L 08/25/21 06:30 Intake & Output 08/24/21 08/25/21 08/25/21 18:59 06:59 18:59 Intake Total 3973.047 3734.125 411.715 Output Total 300 Balance 3673.047 3734.125 411.715 Weight 160.4 kg Intake: IV 1364 1383 128 ART line 39 33 3 Dextrose 5% in Water 1, 925 825 75 000 ml @ 75 mls/hr IV . [id number] [facility] with Sodium Bicarb (1 Meq/ml) 150 ml Rx#:[id number] Sodium Chloride 0.9% 1, 400 525 50 000 ml @ 50 mls/hr IV . Q20H [facility] Rx#:[id number] Intake, IV Titration 2155.047 1823.125 269.715 Amount Cisatracurium 200 mg In 208.403 Sodium Chloride 0.9% 180 ml @ 1 MCG/KG/MIN 8.165 mls/hr IV .Q24H [facility] Rx#: [id number] Linezolid 600 mg In 300 Dextrose/Water 1 300ml. bag @ 150 mls/hr IVPB Q12H [facility] Rx#:[id number] Norepinephrine 8 mg In 8305.037 6941.722 169.715 Sodium Chloride 0.9% 250 ml @ 0.05 MCG/KG/MIN 14. 513 mls/hr IV .[id number] [facility] Rx#:[id number] Piperacillin-Tazobactam 3 100 .375 gm In Sodium Chloride 0.9% 100 ml @ 25 mls/hr IVPB Q12HR [facility] Rx #:[id number] fentaNYL (PF) 2,500 mcg 250 In Sodium Chloride 0.9% 200 ml @ 1.5 MCG/KG/HR 21 .39 mls/hr IV .[id number] [facility] Rx#:[id number] propofoL 1,000 mg In 400.000 496 100 Empty Bag 1 bag @ Titrate IV .Q0M [facility] Rx#: [id number] Oral 14 Tube Feeding 140 168 14 Hemodialysis 300 Other 360 Output: Urine 0 Hemodialysis 300 Other: Voiding Method Indwelling Catheter Indwelling Catheter ABP, PAP, CO, CI - Last Documented Arterial Blood Pressure 86/41 - Labs CBC & Chem 7: 08/25/21 05:10 08/25/21 05:10 Labs: Abnormal Lab Results - Last 24 Hours (Table) 08/24/21 08/24/21 08/24/21 Range/Units 06:00 17:44 23:50 WBC (3.8-10.6) k/uL RBC (4.30-5.90) m/uL Hgb (13.0-17.5) gm/dL Hct (39.0-53.0) % Neutrophils # (Manual) 27.50 H (1.3-7.7) k/uL Lymphocytes # (Manual) 0.30 L (1.0-4.8) k/uL Monocytes # (Manual) 2.42 H (0-1.0) k/uL Metamyelocytes # (Man) 0.30 H (0) k/uL ABG pH (7.35-7.45) ABG pCO2 (35-45) mmHg ABG pO2 (83-108) mmHg ABG HCO3 (21-25) mmol/L ABG Total CO2 (19-24) mmol/L ABG O2 Saturation (94-97) % Potassium (3.5-5.1) mmol/L BUN (9-20) mg/dL Creatinine (0.66-1.25) mg/dL Glucose (74-99) mg/dL POC Glucose (mg/dL) 176 H 153 H (75-99) mg/dL Calcium (8.4-10.2) mg/dL Lactate Dehydrogenase (313-618) U/L Creatine Kinase (55-170) U/L C-Reactive Protein (<1.0) mg/dL Total Protein (6.3-8.2) g/dL Albumin (3.5-5.0) g/dL 08/25/21 08/25/21 08/25/21 Range/Units 05:10 05:10 05:39 WBC 28.1 H (3.8-10.6) k/uL RBC 3.92 L (4.30-5.90) m/uL Hgb 12.4 L (13.0-17.5) gm/dL Hct 38.7 L (39.0-53.0) % Neutrophils # (Manual) (1.3-7.7) k/uL Lymphocytes # (Manual) (1.0-4.8) k/uL Monocytes # (Manual) (0-1.0) k/uL Metamyelocytes # (Man) (0) k/uL ABG pH (7.35-7.45) ABG pCO2 (35-45) mmHg ABG pO2 (83-108) mmHg ABG HCO3 (21-25) mmol/L ABG Total CO2 (19-24) mmol/L ABG O2 Saturation (94-97) % Potassium 5.4 H (3.5-5.1) mmol/L BUN 45 H (9-20) mg/dL Creatinine 7.09 H* (0.66-1.25) mg/dL Glucose 211 H (74-99) mg/dL POC Glucose (mg/dL) 208 H (75-99) mg/dL Calcium 7.0 L (8.4-10.2) mg/dL Lactate Dehydrogenase 1407 H (313-618) U/L Creatine Kinase 859 H (55-170) U/L C-Reactive Protein 20.3 H (<1.0) mg/dL Total Protein 5.4 L (6.3-8.2) g/dL Albumin 2.5 L (3.5-5.0) g/dL 08/25/21 Range/Units 05:54 WBC (3.8-10.6) k/uL RBC (4.30-5.90) m/uL Hgb (13.0-17.5) gm/dL Hct (39.0-53.0) % Neutrophils # (Manual) (1.3-7.7) k/uL Lymphocytes # (Manual) (1.0-4.8) k/uL Monocytes # (Manual) (0-1.0) k/uL Metamyelocytes # (Man) (0) k/uL ABG pH 7.10 L* (7.35-7.45) ABG pCO2 91 H* (35-45) mmHg ABG pO2 60 L (83-108) mmHg ABG HCO3 28 H (21-25) mmol/L ABG Total CO2 31 H (19-24) mmol/L ABG O2 Saturation 87.2 L (94-97) % Potassium (3.5-5.1) mmol/L BUN (9-20) mg/dL Creatinine (0.66-1.25) mg/dL Glucose (74-99) mg/dL POC Glucose (mg/dL) (75-99) mg/dL Calcium (8.4-10.2) mg/dL Lactate Dehydrogenase (313-618) U/L Creatine Kinase (55-170) U/L C-Reactive Protein (<1.0) mg/dL Total Protein (6.3-8.2) g/dL Albumin (3.5-5.0) g/dL Microbiology - Last 24 Hours (Table) 08/20/21 23:00 Blood Culture - Preliminary Blood No Growth after 96 hours Assessment and Plan Plan: Assessment: 1. Acute kidney injury secondary to ATN secondary to septic shock. Baseline creatinine near 1. Oliguric. Started on hemodialysis August 22. 2. Acute hypoxic and hypercapnic respiratory failure secondary to covid-19 pneumonia. Intubated. 3. Septic shock secondary to COVID-19 infection on vasopressor support. 4. Hyperkalemia secondary to acute kidney injury, oliguric. Maintained on lokelma. 5. A. fib with RVR maintained on amiodarone. Status post cardioversion. 6. Hyperphosphatemia secondary to acute kidney injury on phoslo. Plan: Maintain bicarb drip. Maintain tube feeds. Continue with daily hemodialysis. Wean FiO2 and vasopressors.
--- NOTE | 2021-08-25 08:56 | P.PN ---
Subjective Progress Note Date: 08/25/21 on 2020 on seeing the patient for a follow-up. This is a pleasant 36-year-old male patient with Covid associated pneumonia. The patient was hospitalized for worsening shortness of breath and generalized weakness and muscle aches. He is a nonvaccinated individual. He was on a nonrebreather fa cemask. During the course of his illness, he was placed on Airvo at 60 L were notified to 90% and earlier this morning the patient was transitioned to BiPAP which is currently at the pressure of 15/5 with an FiO2 of 100%. The chest x- ray showing bilateral diffuse pulmonary infiltrates. Doppler of the lower extremity has been negative. The patient has blood work which showed a d-dimer of 30.2. His LDH level was elevated at 1463 and the CRP level is at 12.3. The patient is white cell count of 9.28 with a hemoglobin of 16.4 and a platelet count of 305. Electrodes are within normal limits. The patient was treated with a combination of Decadron 6 mg IV every 24 hours. He is on Lovenox 40 mg subcu twice a day. He is on normal saline at the rate of 75 mL an hour. He is also taking oral zinc and vitamin C. Noted the patient's has not received any other outpatient treatment prior to his hospitalization. He did not receive monoclonal antibodies. He was symptomatic around 9 days prior to him coming to the hospital. The patient is currently on a BiPAP at a pressure of 15/5 cm of w ater with an FiO2 of 100%. The patient was also placed in a prone body positioning which obviously helped him with his oxygenation and the patient's pulse ox is up to 91% On 08/20/2021, the patient is still struggling with his breathing. Is a bit tachypneic and he is absolutely dependent on the BiPAP which is set at a pressure of 16/6 cm of water and FiO2 100%. He is able to generate tidal volume of around above in 1000 and his respiratory rate currently is at 32 as the patient is laying down in a prone body position. The patient is a nonvaccinated individual. He had progressive worsening his oxygenation. He was on a nonrebreather and later on on an Airvo and currently is on a BiPAP. The patient is on Decadron 6 mg IV every 12 hours and the patient is also on Lovenox 40 mg subcu for DVT prophylaxis. He was on Baricitinib that was discontinued. I would suggest putting the patient back on Baricitinib and I have already discussed this with infectious disease. In terms of his inflammatory markers, the patient has a d-dimer of 34 and his LDH level is up to 4263 and his CRP leve l is up to 25.3. No other labs are available. Unfortunately his inflammatory markers are on the rise. In terms of treatment, as mentioned, he is on Decadron 6 mg IV every 12 hours. Lovenox is 40 mg subcu every 12 hours. His Doppler of the lower extremities was done on 08/18/2021 was negative for DVT. The elevation d-dimer along with LDH rise is consistent with worsening of his forward 19 related pneumonia and explained his progressive respiratory failure. Pulmonary embolism is felt to be less likely. We'll repeat the Doppler. 08/21/2021, the patient is intubated on a mechanical ventilator. The patient got intubated yesterday without any major difficulties. We had to utilize low t idal volume high PEEP system to maintain his oxygenation. Immediately postintubation, the patient was sedated with propofol and currently propofol is running at 75 Kingsley respiratory per minute. He is also on fentanyl running at 1 mcg/kg/h. The patient is paralyzed with Nimbex at 1 mg/kg per minute. He is adequately sedated and paralyzed. Post intubation, he was kept on assist control mode at the rate of 36 with a tidal volume of 400 and FiO2 of 100% and a day and currently is at 80% and a PEEP is currently at 24. Blood gases from this morning showed a pH of 7.05 with a pCO2 of 96 and pO2 of 169. Based on that, the FiO2 was up around 80%. I gave the patient a total of 150 mEq of sod ium bicarbonate the patient was started on a bicarb infusion. Note that the potassium level was also elevated. The patient was given D50 insulin and a repeat potassium level is pending for now. Note that he also developed an acute kidney injury. Creatinine is up to 1.75. Overnight, he received a total of 2 L of normal saline and the liver under liter was given making a total of 3 L. His urine output is in the order of 5-10 mL an hour. He has a subclavian triple- lumen catheter in place. The patient remains on Decadron. Baricitinib was discontinued. Based on his post intubation chest x-ray, there was worsening consolidation of the right lower lung and I started him on IV cefepime and blood cultures and sputum cultures were sent. The patient has a white cell count of 29.2 today with a hemoglobin of 16.5, his LDH level was as high as 4263 and currently is down to 3458 and his CRP level is at 26. Pro-Level Is at 0.27. The Patient Is Running a Fever and He Has a Low-Grade Fever of 100.5. Enteral Feeding for Nutritional Support Has Been Not Started yet. Noted the patient was quite hypotensive also and this developed overnight. The patient was as high as 27 g of norepinephrine infusion and this was gradually weaned off to 13 g per minute. His most recent blood pressure is 100/59 with a mean of 73. 08/22/2021, the patient's condition is more critical and worse compared to yesterday. The patient this morning remains intubated on a mechanical ventilator. His sedated and is currently on propofol running at 75 mcg/kg per minute and fentanyl is running at 1.5 mcg/kg/h. The patient is also completed paralyzed with Nimbex at 1.5 mg/kg/m. He is very much success with the mechanical ventilator. He remains on assist control mode at the rate of 36, tidal volume of 400, FiO2 of 80% and a PEEP of 24. The peak airway pressure is 43. Noted the patient has a inspiratory pause of 0.2 seconds and he is on a inverse ratio 1.2-1. Gases from today shows a pH of 7.049 with a pCO2 of 96 and pO2 169. Peak airway pressure was 43 with a static airway pressure of 37. Ch est x-ray showing worsening in the bilateral pulmonary infiltrates with worsening consolidation lung bases bilaterally especially in the right. The patient also has developed subcutaneous emphysema and pneumomediastinum. There is no evidence of any pneumothorax at this point in time. No significant orotracheal secretions. I was hoping this patient with some bicarb infusion based on his underlying permissive hypercapnia respiratory acidosis. Bicarb infusion was running at the rate of 75 mL an hour. This was discontinued by nephrology and I would like to return back again as the patient is significantly acidotic at this point. At the same time, the patient is febrile. Pro- calcitonin level is elevated. He was started on IV Zosyn as an empiric antibiotic coverage. ID is on the case. He remains on Decadron for his community related pneumonia. His inflammatory markers today continued to be significantly elevated. His LDH level currently is at 3458 and the CRP level is at 26. Hemodynamically, the patient is still requiring pressors. He is currently running on norepinephrine at 0.11 g/kg per minute. Overnight, the patient had several runs of SVT. He required cardioversion as the patient became quite significantly hemodynamically unstable. Note that he had to be cardioverted on 3 different occasions. Ultimately was given amiodarone bolus and currently is on amiodarone at 1 mg per minute. Cardiac rhythm is currently in sinus tachycardia. He has also developed worsening renal functions. Creatinine is up to 5.28. Serum bicarb is at 36. Urine output is in order of 0 mL an hour. The patient is receiving enteral feeding for nutritional support. Currently is on vital AF at the rate of 70 mL an hour which is currently at goal. Rest of the blood work shows a white cell count 24.7 with a hemoglobin of 13.5. On 2020, the patient remains intubated on a mechanical ventilator. The patient is also sedated and paralyzed. Over the past 24 hours, the patient has remained essentially stable. He is a case of COVID 19 related pneumonia with ARDS and hypoxic respiratory failure. This morning, the patient remains on a combination of propofol and fentanyl. Propofol is running at the rate of 65 mcg/kg per minute and the fentanyl is running at 1.5 mcg/kg/h. The patient is also on Nimbex running at 1 mcg/kg per minute. The patient remains on a mechanical ventilator. Earlier this morning, the patient was on assist-control at the rate of 36, tidal volume of 400, FiO2 of 80% with a PEEP of 24. His peak airway pressure was 41 and a static airway pressure was 39. His morning blood gases showed a pH of 7.1 with a pCO2 of 87 and pO2 of 66. His chest x-ray showed diffuse bilateral pulmonary infiltrates and there was worsening of the subcutaneous emphysema which is essentially a sign of barotrauma. No evidence of any pneumothorax. ET tube had to be pushed by another 1 cm. There is continuing pulmonary infiltrates with patchy airspace disease bilaterally. At the same time, the patient also had electrolyte abnormalities and the potassium level was as high as 6.5 earlier this morning. Nephrology has been involved. The patient was treated for this and the patient was given D50 insulin and bicarb. Currently the patient is undergoing dialysis. No ultrafiltration will be done and the goal is to improve the potassium. We will recheck the potassium and a blood gases following his dialysis. Meanwhile, the mechanical ventilator, few changes were done to lower his peak and static pressure. A drop the PEEP down to 22. FiO2 of 80%. Drop the tidal volume down to the 80. With those changes, his peak airway pressure is 41 with a static pressure 39 with a static pressure of 36. The patient is currently afebrile. He was running a fever throughout the day yesterday. He is covered with broad-spectrum antibiotics and the patient is currently on a combination of IV Zosyn and he is also on Zyvox. ID is on the case making arrangements on antibiotic coverage. Meanwhile, the patient is on Decadron 6 mg IV every 12 hours. All of the cultures are negative thus far. In terms of his inflammatory markers, the patient LDH level is sl ightly improved and is currently down to 2271 and his CRP level is down to 58.4. The patient also has an acute kidney injury. Potassium level is up to 6.5. His BUN is at 52 with a creatinine of 7.15. His white cell count is higher at 29.3. He is on vital AF at the rate of 70 mL an hour. Cardiac rhythm is sinus. On examination, he has developed some subcutaneous emphysema along the neck and the chest and abdominal wall. 08/24/2021, patient is in a critical condition. He is a young 36-year-old male patient with COVID 19 related pneumonia, ARDS, superinfection with staph aureus in his lungs, possible ventilator associated pneumonia, and addition to acute kidney injury requiring dialysis and the patient remains in shock state. In terms of his care, the patient is do not propofol which is running at 50 mcg/kg per minute and fentanyl is running at 1.5 mcg/kg/h. He remains sedated with Nimbex. The patient remains on a mechanical ventilator. His peak airway pressures 41. His static airway pressure is 37. He remains on assist control mode at a rate of 36, tidal volumes of 380, FiO2 is currently at 100% and a PEEP is back up to 24. The blood gases from today shows a pH of 7.09 with a pCO2 of 94 and pO2 of 70. Chest x-ray showing diffuse bilateral pulmonary infiltrates and addition to subcutaneous emphysema which has gotten worse since yesterday. On examination, he does have emphysema subcutaneously throughout his chest and neck area. No evidence of any pneumothorax. The patient's hemodynamically still requiring pressors. He is currently on norepinephrine running at 0.5 Kingsley respiratory kilogram per minute. Vasopressin be also started. His hypotension is probably septic in nature as the patient was also found to have staph aureus in his sputum. The patient is currently on a combination of Zyvox and Zosyn. He is started on a bicarb infusion knowing that he has permissive hypercapnia and respiratory acidosis. He has required several doses of bicarb yesterday and the patient is currently on a bicarb infusion with a total of 150 mEq of sodium bicarbonate running at 75 mL an hour. The potassium level today is at 5.8 and the patient is going to be attempted for another session of hemodialysis today. In terms of his blood work, the white cell count is currently at 30.3 with a hemoglobin of 13.2. His d-dimer is at 3.3. His inflammatory markers from yesterday were improving. His LDH level was 2271 and his CRP level was at 58. Electrolytes from today show a sodium of 136, BUN of 46 with a creatinine of 8.01. Blood sugar is at 143. His cardiac rhythm is still sinus tachycardia. He continues to receive Nepro at the rate of 40 mL an hour. Condition of his distal highly critical. He is running fever still. The despite his ongoing broad-spectrum antibiotic coverage. 08/25/2021, the patient is still very difficult. A 36-year-old male patient with post COVID 19 related pneumonia and ARDS remains on a mechanical ventilator. He remains sedated and paralyzed. I have a medical examination of propofol and fentanyl probably was running at 40 Kingsley respiratory kilogram per minute and fentanyl is running at 1.5 Kingsley respiratory kilogram per hour and the patient is also fully paralyzed on Nimbex. For now, the patient is stil l on a mechanical ventilator. I did try to do some adjustments to lower his PEEP and I was not successful. He remains essentially the same and ventilator settings. On today's evaluation, he is on a tidal volume of 3 80 mL and his PEEP is currently at 24 with a rate of 36 and FiO2 of 100%. His peak airway pressures 42. His static pressure is 37. His blood gases showing a pH of 7.1 with a pCO2 of 91 and pO2 of 60. His follow-up chest x-ray continues to show subcu venous emphysema bilaterally. ET tube was pushed in around a centimeter and the tip of the ET tube is seen around 2 cm above the prabhjot. He does have bilateral pulmonary infiltrates with worsening consolidation of the right lower base. His sputum culture was positive for staph aureus. The patient accordingly was covered with antibiotics and the patient is currently on IV Zosyn and Zyvox. In terms of his fever pattern, he is still running episodic fever with a temperature of 100.1. He remains on pressors and norepinephrine infusion is running at 0.47 Kingsley respiratory kilogram per minute. Note that we attempt to wean off his pressors yesterday and was difficult due to hypotension. He is currently on a slightly lower dose of norepinephrine infusion today compared to yesterday. His white cell count remains elevated at 28.1. Blood cultures of been negative. On a separate note, his LDH level is down to 1407, his CRP level is down to 20.3. LFTs are normal. He underwent hemodialysis yesterday. No ultrafiltration was done. This was done mainly to control his hyperkalemia. He received several bicarb pushes and he is also on a bicarb infusion. His current potassium level is at 5.4. His serum bicarbs a 24 and currently the patient a bicarb infusion which is running at the rate of 75 mL an hour. Urine output is 0 at this point in time. He has developed increased edema in all 4 extremities. Is a well-developed subcutaneous emphysema over the chest and neck area. The patient is currently on Nepro of at the rate of 40 mL an hour. Cardiac rhythm is sinus tachycardia Objective - Vital Signs Vital signs: Vital Signs Temp 100.2 F H 08/25/21 07:00 Pulse 113 H 08/25/21 07:00 Resp 36 H 08/25/21 07:00 BP 111/64 08/25/21 07:00 Pulse Ox 88 L 08/25/21 06:30 Intake & Output 08/24/21 08/25/21 08/25/21 18:59 06:59 18:59 Intake Total 3973.047 3734.125 411.715 Output Total 300 Balance 3673.047 3734.125 411.715 Weight 160.4 kg Intake: IV 1364 1383 128 ART line 39 33 3 Dextrose 5% in Water 1, 925 825 75 000 ml @ 75 mls/hr IV . [id number] RACHEL with Sodium Bicarb (1 Meq/ml) 150 ml Rx#:[id number] Sodium Chloride 0.9% 1, 400 525 50 000 ml @ 50 mls/hr IV . Q20H [facility] Rx#:[id number] Intake, IV Titration 2155.047 1823.125 269.715 Amount Cisatracurium 200 mg In 208.403 Sodium Chloride 0.9% 180 ml @ 1 MCG/KG/MIN 8.165 mls/hr IV .Q24H [facility] Rx#: [id number] Linezolid 600 mg In 300 Dextrose/Water 1 300ml. bag @ 150 mls/hr IVPB Q12H [facility] Rx#:[id number] Norepinephrine 8 mg In 7262.233 0368.722 169.715 Sodium Chloride 0.9% 250 ml @ 0.05 MCG/KG/MIN 14. 513 mls/hr IV .[id number] [facility] Rx#:[id number] Piperacillin-Tazobactam 3 100 .375 gm In Sodium Chloride 0.9% 100 ml @ 25 mls/hr IVPB Q12HR [facility] Rx #:[id number] fentaNYL (PF) 2,500 mcg 250 In Sodium Chloride 0.9% 200 ml @ 1.5 MCG/KG/HR 21 .39 mls/hr IV .[id number] [facility] Rx#:[id number] propofoL 1,000 mg In 400.000 496 100 Empty Bag 1 bag @ Titrate IV .Q0M [facility] Rx#: [id number] Oral 14 Tube Feeding 140 168 14 Hemodialysis 300 Other 360 Output: Urine 0 Hemodialysis 300 Other: Voiding Method Indwelling Catheter Indwelling Catheter ABP, PAP, CO, CI - Last Documented Arterial Blood Pressure 86/41 - Exam Morbidly obese, calm and comfortable on a mechanical ventilator. Orotracheal and orogastric tube are both in place. The patient is sedated and paralyzed. Other the patient has developed some subcutaneous edema and this is easily palpable on his neck area and anterior chest bilaterally. He is sedated and paralyzed on his palm and comfortable and suggested a mechanical ventilator. Calm and comfortable and synchronous with the mechanical ventilator. Head exam was generally normal. There was no scleral icterus or corneal arcus. Mucous membranes were moist. HEENT examination is grossly unremarkable. Neck supple. Full range of motion. No adenopathy thyromegaly or neck vein distention. Cardiovascular examination reveals regular rhythm rate. S1-S2 normal. No S3 or S4. No discernible murmur noted. Heart rate 85 bpm. Lungs reveal coarse bilateral breath sounds. Coarse expiratory rhonchi are noted. No wheezes. Basilar crackles appreciated. Breath sounds equal bilaterally. Evidence of subcutaneous emphysema over the anterior chest Abdominal exam revealed normal bowel sounds. The abdomen was soft, non-tender, and without masses, organomegaly, or appreciable enlargement of the abdominal aorta. Extremities are intact. No cyanosis clubbing and there is some increased edema in lower extremity is bilaterally Examination of the skin revealed no evidence of significant rashes, suspicious appearing nevi or other concerning lesions. Neurologic the patient is currently sedated and paralyzed - Labs CBC & Chem 7: 08/25/21 05:10 08/25/21 05:10 Labs: Abnormal Lab Results - Last 24 Hours (Table) 08/24/21 08/24/21 08/24/21 Range/Units 06:00 17:44 23:50 WBC (3.8-10.6) k/uL RBC (4.30-5.90) m/uL Hgb (13.0-17.5) gm/dL Hct (39.0-53.0) % Neutrophils # (Manual) 27.50 H (1.3-7.7) k/uL Lymphocytes # (Manual) 0.30 L (1.0-4.8) k/uL Monocytes # (Manual) 2.42 H (0-1.0) k/uL Metamyelocytes # (Man) 0.30 H (0) k/uL ABG pH (7.35-7.45) ABG pCO2 (35-45) mmHg ABG pO2 (83-108) mmHg ABG HCO3 (21-25) mmol/L ABG Total CO2 (19-24) mmol/L ABG O2 Saturation (94-97) % Potassium (3.5-5.1) mmol/L BUN (9-20) mg/dL Creatinine (0.66-1.25) mg/dL Glucose (74-99) mg/dL POC Glucose (mg/dL) 176 H 153 H (75-99) mg/dL Calcium (8.4-10.2) mg/dL Lactate Dehydrogenase (313-618) U/L Creatine Kinase (55-170) U/L C-Reactive Protein (<1.0) mg/dL Total Protein (6.3-8.2) g/dL Albumin (3.5-5.0) g/dL 08/25/21 08/25/21 08/25/21 Range/Units 05:10 05:10 05:39 WBC 28.1 H (3.8-10.6) k/uL RBC 3.92 L (4.30-5.90) m/uL Hgb 12.4 L (13.0-17.5) gm/dL Hct 38.7 L (39.0-53.0) % Neutrophils # (Manual) (1.3-7.7) k/uL Lymphocytes # (Manual) (1.0-4.8) k/uL Monocytes # (Manual) (0-1.0) k/uL Metamyelocytes # (Man) (0) k/uL ABG pH (7.35-7.45) ABG pCO2 (35-45) mmHg ABG pO2 (83-108) mmHg ABG HCO3 (21-25) mmol/L ABG Total CO2 (19-24) mmol/L ABG O2 Saturation (94-97) % Potassium 5.4 H (3.5-5.1) mmol/L BUN 45 H (9-20) mg/dL Creatinine 7.09 H* (0.66-1.25) mg/dL Glucose 211 H (74-99) mg/dL POC Glucose (mg/dL) 208 H (75-99) mg/dL Calcium 7.0 L (8.4-10.2) mg/dL Lactate Dehydrogenase 1407 H (313-618) U/L Creatine Kinase 859 H (55-170) U/L C-Reactive Protein 20.3 H (<1.0) mg/dL Total Protein 5.4 L (6.3-8.2) g/dL Albumin 2.5 L (3.5-5.0) g/dL 08/25/21 Range/Units 05:54 WBC (3.8-10.6) k/uL RBC (4.30-5.90) m/uL Hgb (13.0-17.5) gm/dL Hct (39.0-53.0) % Neutrophils # (Manual) (1.3-7.7) k/uL Lymphocytes # (Manual) (1.0-4.8) k/uL Monocytes # (Manual) (0-1.0) k/uL Metamyelocytes # (Man) (0) k/uL ABG pH 7.10 L* (7.35-7.45) ABG pCO2 91 H* (35-45) mmHg ABG pO2 60 L (83-108) mmHg ABG HCO3 28 H (21-25) mmol/L ABG Total CO2 31 H (19-24) mmol/L ABG O2 Saturation 87.2 L (94-97) % Potassium (3.5-5.1) mmol/L BUN (9-20) mg/dL Creatinine (0.66-1.25) mg/dL Glucose (74-99) mg/dL POC Glucose (mg/dL) (75-99) mg/dL Calcium (8.4-10.2) mg/dL Lactate Dehydrogenase (313-618) U/L Creatine Kinase (55-170) U/L C-Reactive Protein (<1.0) mg/dL Total Protein (6.3-8.2) g/dL Albumin (3.5-5.0) g/dL Microbiology - Last 24 Hours (Table) 08/20/21 23:00 Blood Culture - Preliminary Blood No Growth after 96 hours Assessment and Plan Plan: 1 Acute hypoxemic respiratory failure, secondary to coronavirus associated pneumonia. The patient was intubated on 08/20/2021. He has progressed significantly and the patient has developed severe hypoxemic and hypercapnic respiratory failure. Currently we are allowing permissive hypercapnia. Peak and static pressures are quite elevated and the patient has developed no mediastinum and subcutaneous emphysema. Oxygenation has improved and the patient currently is on a 24-hour PEEP with an FiO2 of 100% and an inspiratory close of 0.2 seconds. Chest x-ray was noted. Blood gases was noted. No significant changes on his ventilator setting. The patient will be kept on a PEEP of 24 with an FiO2 of 100%. Peak and static pressures are still elevated. Very poorly compliant lungs. There is evidence of barotrauma with some subcutaneous emphysema yet stable compared to yesterday. Chest x-ray was noted. There is a super infection with staph aureus and the patient is on a combination of Zyvox and Zosyn. 2 Elevated inflammatory markers secondary to coronavirus infection. The inflammatory markers remain quite elevated. The pro calcitonin Is also elevation of the protest on a level suggestive an underlying bacterial infection. For now, the LDH level is improving. CRP level is still elevated. 3 sepsis with underlying hypotension and acute leukocytosis, likely secondary to underlying sepsis. The patient is hypotensive and hemodynamically unstable on pressors the patient remains on norepinephrine infusion currently on 0.47 mg/kg/m. He remains on a combination of Zosyn and Zyvox. 4 sepsis, received a total of 3 L of IV fluids and still on pressors with norepinephrine running at 0.5 mcg/kg per minute 5 permissive hypercapnia and respiratory acidosis 6 acute hyperkalemia, potassium level is at 5.4 7 acute kidney injury, progressive worsening in her renal function and creat inine on HD, the patient is also on a bicarb infusion of is under better control and the patient is undergoing daily hemodialysis 8 hypotension/sepsis currently on accommodation fluids and pressors and antibiotics. 9 obesity with a BMI of 42.6 10 SVT , Current rhythm is sinus tachycardia. Plan Continue ventilator support , no changes keep the PEEP at 24 tidal volume down to 380 mL and keep on a bicarb infusion for now and monitor Complete dialysis today and repeat the potassium level Continue IV Zosyn and Zyvox Continue Decadron daily CXR and ABG amd labs Monitor fever pattern and leukocytosis. Cultures are negative the patient remains on IV Zosyn and Zyvox and ID is on the case, the patient was found to have staph aureus in the sputum enteral feeding for nutritional support, On Nepro insulin for Coverage Lovenox 40 mg subcu every24 hours Monitor d-dimer inflammatory markers Continue the rest of the oral multivitamin supplements Continue amiodarone 400 mg by mouth twice a day, current cardiac rhythm is sinus Condition is obviously critical continue to follow we'll and make further recommendations based on patient's progress. Condition is obviously critical. The patient is currently in intensive care unit. Sedated and paralyzed. We'll continue to follow make further recommendations based on his progress. Mo major changes in his condition since yesterday. This is a critically care evaluation was done and more than 30 minutes. Time with Patient: Greater than 30
[2021-08-25] MEDS: LINEZOLID 600 MG in DEXTROSE/WATER 1 300ML.BAG IVPB SCH ×2 (09:49→20:51)
[2021-08-25 09:57] LABS: Anisocytosis (M) Present; Band Neutrophils % 2 %; Lymphocytes # (M) 1.41 k/uL (1.0-4.8); Metamyelocytes # (M) 0.28 k/uL (0); Metamyelocytes % 1 %; Monocytes # (M) 1.97 k/uL (0-1.0); Myelocytes # (M) 0.56 k/uL (0); Myelocytes % 2 %; Neutrophils % (M) 84 %; Nucleated Red Blood Cells 0 /100 WBC (0-0); Total Cells Counted 200
[2021-08-25 09:58] LABS: Toxic Granulation Present
[2021-08-25] MEDS: ACETAMINOPHEN TAB 325 MG TAB PO PRN (10:00)
[2021-08-25 11:17] LABS: Glucose,Whole Blood 225 mg/dL (75-99)
[2021-08-25] MEDS: SODIUM CHLORIDE 0.9% 150 ML with VASOPRESSIN 60 UNIT IV SCH ×2 (11:22)
[2021-08-25] MEDS ORDERED: DEXTROSE 5% IN WATER 100 ML with AMIODARONE 150 MG IV ONE (13:31)
[2021-08-25] MEDS ORDERED: AMIODARONE IN DEXTROSE,ISO-OSM 150 MG/100 ML PLAST..BAG IV ONE (13:45)
[2021-08-25] MEDS ORDERED: AMIODARONE IN DEXTROSE,ISO-OSM 360 MG/200 ML PLAST..BAG IV ONE (13:45)
[2021-08-25] MEDS ORDERED: AMIODARONE 360 MG in DEXTROSE 5% IN WATER 200 ML IV ONE ×2 (13:52)
[2021-08-25 17:38] LABS: Glucose,Whole Blood 183 mg/dL (75-99)
[2021-08-25] MEDS: CISATRACURIUM 200 MG in SODIUM CHLORIDE 0.9% 180 ML IV SCH (18:39)
[2021-08-25] MEDS ORDERED: AMIODARONE 450 MG in DEXTROSE 5% IN WATER 250 ML IV SCH ×2 (19:52)
--- NOTE | 2021-08-25 20:12 | P.PN ---
Subjective Progress Note Date: 08/24/21 Principal diagnosis: Acute hypoxemic respiratory failure, secondary to coronavirus associated pneumonia Sepsis with underlying hypotension and acute leukocytosis Acute kidney injury Acute hyperkalemia 36-year-old male patient with Covid associated pneumonia, hospitalized for worsening shortness of breath and generalized weakness and muscle aches. He is a nonvaccinated individual. He was on a nonrebreather facemask. During the course of his illness, he was placed on Airvo at 60 L were notified to 90% and earlier this morning the patient was transitioned to BiPAP and was intubated and mechanically intubated due to continued decline 08/24/2021 Patient is evaluated in ICU; 36-year-old patient with Covid 19 related pneu monia, ARDS and superimposed infection with staph aureus; requiting hemodialysis for acute renal failure; patient remains intubated and mechanically ventilated Vital signs reveal temperature 99.1, pulse 118, respiration 36 and blood pressure of 93/50; patient continues to require pressor support with norepinephrine and vasopressin is started Chest x-ray showing diffuse bilateral pulmonary infiltrates and addition to subcutaneous emphysema which has gotten worse since yesterday. blood work, the white cell count is currently at 30.3 with a hemoglobin of 13.2. His d-dimer is at 3.3. His inflammatory markers from yesterday were improving. His LDH level was 2271 and his CRP level was at 58. Electrolytes from today show a sodium of 136, BUN of 46 with a creatinine of 8.01. Blood sugar is at 143. Patient will remain on ventilator support; continue with hemodialysis; remains on IV Zosyn and Zyvox; IV Decadron, Lovenox and nutritional support; remains on amiodarone 400 mg twice a day Plan is to continue to monitor inflammatory markers and continue with current treatment Patient condition and prognosis remains critical Objective - Vital Signs Vital signs: Vital Signs Temp 102.6 F H 08/24/21 08:00 Pulse 121 H 08/24/21 10:00 Resp 36 H 08/24/21 10:00 BP 111/52 08/24/21 10:00 Pulse Ox 88 L 08/24/21 10:00 Intake & Output 08/23/21 08/24/21 08/24/21 18:59 06:59 18:59 Intake Total 1639.722 0212.567 1519.070 Output Total 5 9 1 Balance 4358.667 9495.567 1518.070 Weight 153 kg 160 kg Intake: IV 833 1236 540 ART line 33 36 15 Dextrose 5% in Water 1, 100 600 325 000 ml @ 75 mls/hr IV . [id number] [facility] with Sodium Bicarb (1 Meq/ml) 150 ml Rx#:[id number] Sodium Chloride 0.9% 1, 700 600 200 000 ml @ 50 mls/hr IV . Q20H [facility] Rx#:[id number] Intake, IV Titration 227.904 6849.567 923.070 Amount Cisatracurium 200 mg In 200.00 Sodium Chloride 0.9% 180 ml @ 1 MCG/KG/MIN 8.165 mls/hr IV .Q24H [facility] Rx#: [id number] Norepinephrine 8 mg In 142.706 699.567 623.070 Sodium Chloride 0.9% 250 ml @ 0.05 MCG/KG/MIN 14. 513 mls/hr IV .[id number] [facility] Rx#:[id number] Piperacillin-Tazobactam 3 100 .375 gm In Sodium Chloride 0.9% 100 ml @ 25 mls/hr IVPB Q12HR [facility] Rx #:[id number] fentaNYL (PF) 2,500 mcg 250 250 In Sodium Chloride 0.9% 200 ml @ 1.5 MCG/KG/HR 21 .39 mls/hr IV .[id number] [facility] Rx#:[id number] propofoL 1,000 mg In 378 578 200.000 Empty Bag 1 bag @ Titrate IV .Q0M [facility] Rx#: [id number] Oral 7 Tube Feeding 70 168 56 Other 240 360 Output: Urine 5 9 0 Stool 1 Hemodialysis 0 Other: Voiding Method Indwelling Catheter Indwelling Catheter Indwelling Catheter ABP, PAP, CO, CI - Last Documented Arterial Blood Pressure 102/44 - Exam Morbidly obese, calm and comfortable on a mechanical ventilator. Head exam was generally normal. There was no scleral icterus or corneal arcus. Mucous membranes were moist. HEENT examination is grossly unremarkable. Neck supple. Full range of motion. No adenopathy thyromegaly or neck vein distention. Cardiovascular examination reveals regular rhythm rate. S1-S2 normal. No S3 or S4. No discernible murmur noted. Heart rate 85 bpm. Lungs reveal coarse bilateral breath sounds. Basilar crackles appreciated. Breath sounds equal bilaterally. Evidence of subcutaneous emphysema over the anterior chest Abdominal exam revealed normal bowel sounds. The abdomen was soft, non-tender, and without masses, organomegaly. Extremities are intact. No cyanosis clubbing and there is some increased edema in lower extremity is bilaterally Neurologic the patient is currently sedated and paralyzed - Labs CBC & Chem 7: 08/25/21 05:10 08/25/21 05:10 Labs: Abnormal Lab Results - Last 24 Hours (Table) 08/23/21 08/23/21 08/23/21 Range/Units 16:20 18:07 18:30 WBC (3.8-10.6) k/uL RBC (4.30-5.90) m/uL Neutrophils # (Manual) (1.3-7.7) k/uL Lymphocytes # (Manual) (1.0-4.8) k/uL Monocytes # (Manual) (0-1.0) k/uL Metamyelocytes # (Man) (0) k/uL D-Dimer (<0.60) mg/L FEU ABG pH 7.09 L* (7.35-7.45) ABG pCO2 99 H* (35-45) mmHg ABG pO2 68 L (83-108) mmHg ABG HCO3 30 H (21-25) mmol/L ABG Total CO2 33 H (19-24) mmol/L ABG O2 Saturation 91.8 L (94-97) % Sodium 134 L (137-145) mmol/L Potassium 6.1 H* (3.5-5.1) mmol/L Chloride 96 L (98-107) mmol/L BUN 42 H (9-20) mg/dL Creatinine 6.74 H (0.66-1.25) mg/dL Glucose 190 H (74-99) mg/dL POC Glucose (mg/dL) 242 H (75-99) mg/dL Calcium 7.2 L (8.4-10.2) mg/dL 08/23/21 08/23/21 08/23/21 Range/Units 20:50 20:55 21:47 WBC (3.8-10.6) k/uL RBC (4.30-5.90) m/uL Neutrophils # (Manual) (1.3-7.7) k/uL Lymphocytes # (Manual) (1.0-4.8) k/uL Monocytes # (Manual) (0-1.0) k/uL Metamyelocytes # (Man) (0) k/uL D-Dimer (<0.60) mg/L FEU ABG pH 7.07 L* (7.35-7.45) ABG pCO2 100 H* (35-45) mmHg ABG pO2 64 L (83-108) mmHg ABG HCO3 29 H (21-25) mmol/L ABG Total CO2 32 H (19-24) mmol/L ABG O2 Saturation 89.7 L (94-97) % Sodium (137-145) mmol/L Potassium 5.8 H (3.5-5.1) mmol/L Chloride (98-107) mmol/L BUN (9-20) mg/dL Creatinine (0.66-1.25) mg/dL Glucose (74-99) mg/dL POC Glucose (mg/dL) 184 H (75-99) mg/dL Calcium (8.4-10.2) mg/dL 08/24/21 08/24/21 08/24/21 Range/Units 00:39 02:00 05:32 WBC (3.8-10.6) k/uL RBC (4.30-5.90) m/uL Neutrophils # (Manual) (1.3-7.7) k/uL Lymphocytes # (Manual) (1.0-4.8) k/uL Monocytes # (Manual) (0-1.0) k/uL Metamyelocytes # (Man) (0) k/uL D-Dimer (<0.60) mg/L FEU ABG pH (7.35-7.45) ABG pCO2 (35-45) mmHg ABG pO2 (83-108) mmHg ABG HCO3 (21-25) mmol/L ABG Total CO2 (19-24) mmol/L ABG O2 Saturation (94-97) % Sodium (137-145) mmol/L Potassium 5.9 H (3.5-5.1) mmol/L Chloride (98-107) mmol/L BUN (9-20) mg/dL Creatinine (0.66-1.25) mg/dL Glucose (74-99) mg/dL POC Glucose (mg/dL) 163 H 143 H (75-99) mg/dL Calcium (8.4-10.2) mg/dL 08/24/21 08/24/21 08/24/21 Range/Units 05:56 06:00 06:00 WBC 30.3 H (3.8-10.6) k/uL RBC 4.21 L (4.30-5.90) m/uL Neutrophils # (Manual) 27.50 H (1.3-7.7) k/uL Lymphocytes # (Manual) 0.30 L (1.0-4.8) k/uL Monocytes # (Manual) 2.42 H (0-1.0) k/uL Metamyelocytes # (Man) 0.30 H (0) k/uL D-Dimer (<0.60) mg/L FEU ABG pH 7.09 L* (7.35-7.45) ABG pCO2 94 H* (35-45) mmHg ABG pO2 70 L (83-108) mmHg ABG HCO3 28 H (21-25) mmol/L ABG Total CO2 31 H (19-24) mmol/L ABG O2 Saturation 91.8 L (94-97) % Sodium 136 L (137-145) mmol/L Potassium 5.8 H (3.5-5.1) mmol/L Chloride 97 L (98-107) mmol/L BUN 46 H (9-20) mg/dL Creatinine 8.01 H* (0.66-1.25) mg/dL Glucose 192 H (74-99) mg/dL POC Glucose (mg/dL) (75-99) mg/dL Calcium 6.9 L (8.4-10.2) mg/dL 08/24/21 Range/Units 07:00 WBC (3.8-10.6) k/uL RBC (4.30-5.90) m/uL Neutrophils # (Manual) (1.3-7.7) k/uL Lymphocytes # (Manual) (1.0-4.8) k/uL Monocytes # (Manual) (0-1.0) k/uL Metamyelocytes # (Man) (0) k/uL D-Dimer 3.35 H (<0.60) mg/L FEU ABG pH (7.35-7.45) ABG pCO2 (35-45) mmHg ABG pO2 (83-108) mmHg ABG HCO3 (21-25) mmol/L ABG Total CO2 (19-24) mmol/L ABG O2 Saturation (94-97) % Sodium (137-145) mmol/L Potassium (3.5-5.1) mmol/L Chloride (98-107) mmol/L BUN (9-20) mg/dL Creatinine (0.66-1.25) mg/dL Glucose (74-99) mg/dL POC Glucose (mg/dL) (75-99) mg/dL Calcium (8.4-10.2) mg/dL Microbiology - Last 24 Hours (Table) 08/20/21 23:00 Blood Culture - Preliminary Blood No Growth after 72 hours 08/21/21 22:22 Gram Stain - Preliminary Sputum Sputum Culture - Preliminary Presumptive Staph aureus Assessment and Plan Assessment: 1. Acute hypoxemic respiratory failure, secondary to coronavirus associated pneumonia; - intubated on 08/20/2021 due to severe hypoxemic and hypercapnic respiratory failure. Currently being allowed permissive hypercapnia. Oxygenation has improved - Chest x-ray and blood gases was noted. There is development of worsening of subcutaneous emphysema along the right chest area. - Continue ventilator support; Continue Decadron; Lovenox for DVT prophylaxis 2. Elevated inflammatory markers secondary to coronavirus infection; continue to monitor 3. Sepsis with underlying hypotension and acute leukocytosis, likely secondary to underlying sepsis; remains on norepinephrine infusion; remains on Zosyn and Zyvox - received a total of 3 L of IV fluids; Cultures are still pending for now. 4. Acute hyperkalemia; Complete dialysis today and repeat the potassium level; May need to consider bicarb infusion to improve his bicarb level in the serum and hope for a improved potassium control 5. Acute kidney injury; progressive worsening in her renal function and creatinine on HD 6. SVT; currently sinus tachycardia. 7. Malnutrition; enteral feeding for nutritional support, dietary consultation insulin for Coverage DVT Prophylaxis; SCDs/ Lovenox CODE STATUS; FULL CODE
--- NOTE | 2021-08-25 20:15 | P.PN ---
Subjective Progress Note Date: 08/25/21 Principal diagnosis: Acute hypoxemic respiratory failure, secondary to coronavirus associated pneumonia Sepsis with underlying hypotension and acute leukocytosis Acute kidney injury Acute hyperkalemia 36-year-old male patient with Covid associated pneumonia, hospitalized for worsening shortness of breath and generalized weakness and muscle aches. He is a nonvaccinated individual. He was on a nonrebreather facemask. During the course of his illness, he was placed on Airvo at 60 L were notified to 90% and earlier this morning the patient was transitioned to BiPAP and was intubated and mechanically intubated due to continued decline 08/24/2021 Patient is evaluated in ICU; 36-year-old patient with Covid 19 related pneu monia, ARDS and superimposed infection with staph aureus; requiting hemodialysis for acute renal failure; patient remains intubated and mechanically ventilated Vital signs reveal temperature 99.1, pulse 118, respiration 36 and blood pressure of 93/50; patient continues to require pressor support with norepinephrine and vasopressin is started Chest x-ray showing diffuse bilateral pulmonary infiltrates and addition to subcutaneous emphysema which has gotten worse since yesterday. blood work, the white cell count is currently at 30.3 with a hemoglobin of 13.2. His d-dimer is at 3.3. His inflammatory markers from yesterday were improving. His LDH level was 2271 and his CRP level was at 58. Electrolytes from today show a sodium of 136, BUN of 46 with a creatinine of 8.01. Blood sugar is at 143. Patient will remain on ventilator support; continue with hemodialysis; remains on IV Zosyn and Zyvox; IV Decadron, Lovenox and nutritional support; remains on amiodarone 400 mg twice a day Plan is to continue to monitor inflammatory markers and continue with current treatment Patient condition and prognosis remains critical 08/25/2021 Remains in ICU; intubated and mechanically ventilated for Covid 19 related pneumonia and ARDS; patient is sedated and paralyzed with propofol and fentanyl chest x-ray continues to show subcu venous emphysema bilaterally. His white cell count remains elevated at 28.1. Blood cultures of been negative. On a separate note, his LDH level is down to 1407, his CRP level is down to 20.3. LFTs are normal. He underwent hemodialysis yesterday. No ultrafiltration was done. This was done mainly to control his hyperkalemia. He received several bicarb pushes and he is also on a bicarb infusion. His current potassium level is at 5.4. His serum bicarbs a 24 and currently the patient a bicarb infusion which is running at the rate of 75 mL an hour. Continue with IV antibiotics in form of Zosyn and Zyvox; subcu Lovenox and Deca dron; continue with current dose of amiodarone Objective - Vital Signs Vital signs: Vital Signs Temp 100.0 F H 08/25/21 12:00 Pulse 112 H 08/25/21 12:30 Resp 36 H 08/25/21 12:30 BP 123/75 08/25/21 12:30 Pulse Ox 88 L 08/25/21 12:30 Intake & Output 08/24/21 08/25/21 08/25/21 18:59 06:59 18:59 Intake Total 3973.047 3984.125 Output Total 300 0 Balance 3673.047 3984.125 Weight 160.4 kg Intake: IV 1364 1383 643 ART line 39 33 18 Dextrose 5% in Water 1, 925 825 450 000 ml @ 75 mls/hr IV . [id number] [facility] with Sodium Bicarb (1 Meq/ml) 150 ml Rx#:[id number] Sodium Chloride 0.9% 1, 400 525 175 000 ml @ 50 mls/hr IV . Q20H [facility] Rx#:[id number] Intake, IV Titration 2155.047 2073.125 1285.715 Amount Cisatracurium 200 mg In 208.403 Sodium Chloride 0.9% 180 ml @ 1 MCG/KG/MIN 8.165 mls/hr IV .Q24H [facility] Rx#: [id number] Linezolid 600 mg In 300 300 Dextrose/Water 1 300ml. bag @ 150 mls/hr IVPB Q12H [facility] Rx#:[id number] Norepinephrine 8 mg In 3369.890 8096.722 685.715 Sodium Chloride 0.9% 250 ml @ 0.05 MCG/KG/MIN 14. 513 mls/hr IV .[id number] [facility] Rx#:[id number] Piperacillin-Tazobactam 3 100 100 .375 gm In Sodium Chloride 0.9% 100 ml @ 25 mls/hr IVPB Q12HR [facility] Rx #:[id number] fentaNYL (PF) 2,500 mcg 250 250 In Sodium Chloride 0.9% 200 ml @ 1.5 MCG/KG/HR 21 .39 mls/hr IV .[id number] [facility] Rx#:[id number] propofoL 1,000 mg In 400.000 496 200 Empty Bag 1 bag @ Titrate IV .Q0M [facility] Rx#: [id number] Oral 14 Tube Feeding 140 168 84 Hemodialysis 300 Other 360 Output: Urine 0 0 Hemodialysis 300 Other: Voiding Method Indwelling Catheter Indwelling Catheter Indwelling Catheter ABP, PAP, CO, CI - Last Documented Arterial Blood Pressure 120/62 - Exam Morbidly obese, calm and comfortable on a mechanical ventilator. Head exam was generally normal. There was no scleral icterus or corneal arcus. Mucous membranes were moist. HEENT examination is grossly unremarkable. Neck supple. Full range of motion. No adenopathy thyromegaly or neck vein distention. Cardiovascular examination reveals regular rhythm rate. S1-S2 normal. No S3 or S4. No discernible murmur noted. Heart rate 85 bpm. Lungs reveal coarse bilateral breath sounds. Basilar crackles appreciated. Breath sounds equal bilaterally. Evidence of subcutaneous emphysema over the anterior chest Abdominal exam revealed normal bowel sounds. The abdomen was soft, non-tender, and without masses, organomegaly. Extremities are intact. No cyanosis clubbing and there is some increased edema in lower extremity is bilaterally Neurologic the patient is currently sedated and paralyzed - Labs CBC & Chem 7: 08/25/21 05:10 08/25/21 05:10 Labs: Abnormal Lab Results - Last 24 Hours (Table) 08/24/21 08/24/21 08/25/21 Range/Units 17:44 23:50 05:10 WBC (3.8-10.6) k/uL RBC (4.30-5.90) m/uL Hgb (13.0-17.5) gm/dL Hct (39.0-53.0) % Neutrophils # (Manual) (1.3-7.7) k/uL Monocytes # (Manual) (0-1.0) k/uL Metamyelocytes # (Man) (0) k/uL Myelocytes # (Manual) (0) k/uL ABG pH (7.35-7.45) ABG pCO2 (35-45) mmHg ABG pO2 (83-108) mmHg ABG HCO3 (21-25) mmol/L ABG Total CO2 (19-24) mmol/L ABG O2 Saturation (94-97) % Potassium 5.4 H (3.5-5.1) mmol/L BUN 45 H (9-20) mg/dL Creatinine 7.09 H* (0.66-1.25) mg/dL Glucose 211 H (74-99) mg/dL POC Glucose (mg/dL) 176 H 153 H (75-99) mg/dL Calcium 7.0 L (8.4-10.2) mg/dL Lactate Dehydrogenase 1407 H (313-618) U/L Creatine Kinase 859 H (55-170) U/L C-Reactive Protein 20.3 H (<1.0) mg/dL Total Protein 5.4 L (6.3-8.2) g/dL Albumin 2.5 L (3.5-5.0) g/dL 08/25/21 08/25/21 08/25/21 Range/Units 05:10 05:39 05:54 WBC 28.1 H (3.8-10.6) k/uL RBC 3.92 L (4.30-5.90) m/uL Hgb 12.4 L (13.0-17.5) gm/dL Hct 38.7 L (39.0-53.0) % Neutrophils # (Manual) 24.10 H (1.3-7.7) k/uL Monocytes # (Manual) 1.97 H (0-1.0) k/uL Metamyelocytes # (Man) 0.28 H (0) k/uL Myelocytes # (Manual) 0.56 H (0) k/uL ABG pH 7.10 L* (7.35-7.45) ABG pCO2 91 H* (35-45) mmHg ABG pO2 60 L (83-108) mmHg ABG HCO3 28 H (21-25) mmol/L ABG Total CO2 31 H (19-24) mmol/L ABG O2 Saturation 87.2 L (94-97) % Potassium (3.5-5.1) mmol/L BUN (9-20) mg/dL Creatinine (0.66-1.25) mg/dL Glucose (74-99) mg/dL POC Glucose (mg/dL) 208 H (75-99) mg/dL Calcium (8.4-10.2) mg/dL Lactate Dehydrogenase (313-618) U/L Creatine Kinase (55-170) U/L C-Reactive Protein (<1.0) mg/dL Total Protein (6.3-8.2) g/dL Albumin (3.5-5.0) g/dL 08/25/21 Range/Units 11:16 WBC (3.8-10.6) k/uL RBC (4.30-5.90) m/uL Hgb (13.0-17.5) gm/dL Hct (39.0-53.0) % Neutrophils # (Manual) (1.3-7.7) k/uL Monocytes # (Manual) (0-1.0) k/uL Metamyelocytes # (Man) (0) k/uL Myelocytes # (Manual) (0) k/uL ABG pH (7.35-7.45) ABG pCO2 (35-45) mmHg ABG pO2 (83-108) mmHg ABG HCO3 (21-25) mmol/L ABG Total CO2 (19-24) mmol/L ABG O2 Saturation (94-97) % Potassium (3.5-5.1) mmol/L BUN (9-20) mg/dL Creatinine (0.66-1.25) mg/dL Glucose (74-99) mg/dL POC Glucose (mg/dL) 225 H (75-99) mg/dL Calcium (8.4-10.2) mg/dL Lactate Dehydrogenase (313-618) U/L Creatine Kinase (55-170) U/L C-Reactive Protein (<1.0) mg/dL Total Protein (6.3-8.2) g/dL Albumin (3.5-5.0) g/dL Microbiology - Last 24 Hours (Table) 08/21/21 22:22 Gram Stain - Final Sputum Sputum Culture - Final Staphylococcus aureus 08/20/21 23:00 Blood Culture - Preliminary Blood No Growth after 96 hours Assessment and Plan Assessment: 1. Acute hypoxemic respiratory failure, secondary to coronavirus associated pneumonia; - intubated on 08/20/2021 due to severe hypoxemic and hypercapnic respiratory failure. Currently being allowed permissive hypercapnia. Oxygenation has improved - Chest x-ray and blood gases was noted. There is development of worsening of subcutaneous emphysema along the right chest area. - Continue ventilator support; Continue Decadron; Lovenox for DVT prophylaxis 2. Elevated inflammatory markers secondary to coronavirus infection; continue to monitor 3. Sepsis with underlying hypotension and acute leukocytosis, likely secondary to underlying sepsis; remains on norepinephrine infusion; remains on Zosyn and Zyvox - received a total of 3 L of IV fluids; Cultures are still pending for now. 4. Acute hyperkalemia; Complete dialysis today and repeat the potassium level; May need to consider bicarb infusion to improve his bicarb level in the serum and hope for a improved potassium control 5. Acute kidney injury; progressive worsening in her renal function and creatinine on HD 6. SVT; currently sinus tachycardia. 7. Malnutrition; enteral feeding for nutritional support, dietary consultation insulin for Coverage DVT Prophylaxis; SCDs/ Lovenox CODE STATUS; FULL CODE
[2021-08-25 23:58] LABS: Glucose,Whole Blood 200 mg/dL (75-99)
--- NOTE | 2021-08-26 00:24 | PN ---
PROGRESS NOTE DATE OF SERVICE: 08/25/2021 REASON FOR FOLLOWUP: Pneumonia. INTERVAL HISTORY: The patient's overall fever pattern has improved. T-max of 100.6 today. The patient is hemodynamically stable. FiO2 is currently at 100%. No significant purulent secretions through the ET, diarrhea or any other changes reported by nursing staff. PHYSICAL EXAMINATION: Blood pressure is 114/53 with a pulse of 113, temperature of 98. He is 93% on 100% FiO2. General description is a middle-aged male intubated on the vent. Respiratory system: Unlabored breathing, decreased intensity of breath sounds. No wheeze. Heart S1, S2. Regular rate and rhythm. Abdomen soft, no tenderness. Extremities no edema of the feet. LABS: Hemoglobin is 12.8, white count 28.1, creatinine 7.09. DIAGNOSTIC IMPRESSION AND PLAN: Patient with acute respiratory failure, multifactorial, with initial diagnosis of COVID- 19 pneumonia in this patient with worsening respiratory status, requiring intubation. Sputum has been MSSA. Antibiotic will be adjusted to Unasyn and monitor his clinical course closely. Prognosis remains guarded. MMODL / IJN: [id number] /
[2021-08-26] MEDS: NOREPINEPHRINE 8 MG in SODIUM CHLORIDE 0.9% 250 ML IV SCH ×3 (01:00→05:42)
[2021-08-26] MEDS: ARTIFICIAL TEARS-HYPROMELLOSE DROPS 15 ML BTL BOTH EYES SCH ×2 (01:00→03:18)
[2021-08-26] MEDS: INSULIN ASPART (NovoLOG) 100 UNIT/ML VIAL SQ SCH ×2 (01:00→05:55)
[2021-08-26] MEDS: fentaNYL (PF) 2,500 MCG in SODIUM CHLORIDE 0.9% 200 ML IV SCH ×2 (01:43→01:44)
[2021-08-26 05:37] LABS: Glucose,Whole Blood 215 mg/dL (75-99)
[2021-08-26 05:37] LABS: ABG Base Excess -0.5 mmol/L; ABG HCO3 29 mmol/L (21-25); ABG Oxygen Saturation 84.4 % (94-97); ABG TCO2 32 mmol/L (19-24); Allen Test Performed? Yes
[2021-08-26 05:44] LABS: ABG PCO2 93 mmHg (35-45)
[2021-08-26 05:45] LABS: ABG PO2 57 mmHg (83-108)
[2021-08-26 06:11] LABS: HCT 37.9 % (39.0-53.0); HGB 11.9 gm/dL (13.0-17.5); Hypochromasia Moderate; MCH 31.7 pg (25.0-35.0); MCHC 31.3 g/dL (31.0-37.0); MCV 101.1 fL (80.0-100.0); Macrocytosis Slight; Mean Platelet Volume 7.9; Platelet Count 366 k/uL (150-450); Poikilocytosis Slight; RBC 3.75 m/uL (4.30-5.90); RDW 14.6 % (11.5-15.5)
[2021-08-26 06:32] LABS: Calcium 7.4 mg/dL (8.4-10.2); Potassium 4.7 mmol/L (3.5-5.1)
[2021-08-26 06:40] LABS: Band Neutrophils % 14 %; Myelocytes # (M) 0.24 k/uL (0); Myelocytes % 1 %; Neutrophils % (M) 71 %; Nucleated Red Blood Cells 2 /100 WBC (0-0); Total Cells Counted 200
[2021-08-26 06:41] LABS: Lymphocytes # (M) 0.48 k/uL (1.0-4.8); Monocytes # (M) 2.87 k/uL (0-1.0); Toxic Granulation Present; WBC 23.9 k/uL (3.8-10.6)
[2021-08-26] MEDS: ALBUTEROL HFA INHALER INHALATION SCH ×2 (07:59→11:13)
--- NOTE | 2021-08-26 08:16 | XR ---
EXAMINATION TYPE: XR chest 1V portable DATE OF EXAM: 08/26/2021 COMPARISON: 08/25/2021 INDICATION: Covid TECHNIQUE: Single frontal view of the chest is obtained. FINDINGS: The heart size is mildly prominent. The pulmonary vasculature is indistinct. There is diffuse increased lung markings bilaterally. This is greater at the lung bases. Findings are similar in comparison. Endotracheal tube tip is above the prabhjot. Left-sided chest tube tip is in superior vena cava region. Nasogastric tube appears to transverse the thorax. IMPRESSION: 1. Diffuse bilateral lung infiltrates greater at the lung bases, similar prior exam. 2. Lines and catheters discussed above.
[2021-08-26] MEDS ORDERED: ATROPINE SULFATE 0.1 MG/ML 10ML SYRINGE ONE (08:25)
[2021-08-26] MEDS ORDERED: AMPICILLIN-SULBACTAM 3 GM in SODIUM CHLORIDE 0.9% 100 ML IVPB SCH (09:00)
[2021-08-26 09:01] LABS: ABG Base Excess -7.4 mmol/L; ABG HCO3 24 mmol/L (21-25); ABG Oxygen Saturation 63.8 % (94-97); ABG TCO2 27 mmol/L (19-24)
[2021-08-26 09:04] LABS: ABG PCO2 93 mmHg (35-45); ABG PH 7.02 (7.35-7.45)
[2021-08-26 09:06] LABS: ABG PO2 42 mmHg (83-108); Allen Test Performed? no
[2021-08-26] MEDS ORDERED: SODIUM BICARB 8.4% 50 ML SYR (1 MEQ/ML) ONE (09:15)
[2021-08-26] MEDS ORDERED: EPINEPHrine 10 ML SYRINGE (0.1 MG/ML) ONE (09:15)
[2021-08-26 09:29] LABS: ABG Base Excess -6.4 mmol/L; ABG HCO3 26 mmol/L (21-25); ABG Oxygen Saturation 40.7 % (94-97); ABG TCO2 29 mmol/L (19-24); Allen Test Performed? Yes
[2021-08-26 09:34] LABS: ABG PCO2 118 mmHg (35-45); ABG PH 6.95 (7.35-7.45); ABG PO2 31 mmHg (83-108)
[2021-08-26 09:37] VITALS: BMI 49.4
[2021-08-26] MEDS ORDERED: SODIUM BICARB 8.4% 50 ML SYR (1 MEQ/ML) IV STA (09:40)
[2021-08-26] MEDS ORDERED: EPINEPHrine 4 MG in DEXTROSE 5% IN WATER 250 ML IV SCH ×2 (09:45)
[2021-08-26 09:55] LABS: HCT 36.8 % (39.0-53.0); HGB 11.6 gm/dL (13.0-17.5); Hypochromasia Moderate; MCH 31.8 pg (25.0-35.0); MCHC 31.4 g/dL (31.0-37.0); MCV 101.2 fL (80.0-100.0); Macrocytosis Slight; Mean Platelet Volume 8.1; Platelet Count 382 k/uL (150-450); Poikilocytosis Slight; RBC 3.64 m/uL (4.30-5.90); RDW 14.9 % (11.5-15.5)
[2021-08-26 10:00] LABS: Albumin 2.3 g/dL (3.5-5.0); Calcium 9.9 mg/dL (8.4-10.2); Total Bilirubin 0.6 mg/dL (0.2-1.3)
--- NOTE | 2021-08-26 10:05 | XR ---
EXAMINATION TYPE: XR chest 1V portable DATE OF EXAM: 08/26/2021 COMPARISON: 08/26/2021 HISTORY: Cough TECHNIQUE: Single frontal view of the chest is obtained. FINDINGS: Diffuse bilateral infiltrates. ET and NG tube and central line stable. Heart size prominen t but stable. No pneumothorax. IMPRESSION: 1. Diffuse bilateral infiltrate stable. Correlate for ARDS or diffuse pneumonia. 2. The heart is enlarged with the patient's age correlate clinically.
[2021-08-26 10:15] LABS: Potassium 6.7 mmol/L (3.5-5.1)
[2021-08-26 10:55] LABS: Band Neutrophils % 4 %; Metamyelocytes % 3 %; Myelocytes % 3 %; Neutrophils % (M) 80 %; Nucleated Red Blood Cells 2 /100 WBC (0-0); Total Cells Counted 200
[2021-08-26 10:56] LABS: Lymphocytes # (M) 1.57 k/uL (1.0-4.8); Metamyelocytes # (M) 0.67 k/uL (0); Monocytes # (M) 1.12 k/uL (0-1.0); Myelocytes # (M) 0.67 k/uL (0); WBC 22.4 k/uL (3.8-10.6)
[2021-08-26 10:57] LABS: Toxic Granulation Present
[2021-08-26 11:03] VITALS: BP 156/143; PULSE 105; RESP 37; TEMP 99.8
--- NOTE | 2021-08-26 11:23 | P.PN ---
Subjective Progress Note Date: 08/26/21 Principal diagnosis: Acute hypoxic respiratory failure secondary to COVID-19 pneumonia 08/24/2021, patient is in a critical condition. He is a young 36-year-old male patient with COVID 19 related pneumonia, ARDS, superinfection with staph aureus in his lungs, possible ventilator associated pneumonia, and addition to acute kidney injury requiring dialysis and the patient remains in shock state. In terms of his care, the patient is do not propofol which is running at 50 mcg/kg per minute and fentanyl is running at 1.5 mcg/kg/h. He remains sedated with Nimbex. The patient remains on a mechanical ventilator. His peak airway pressures 41. His static airway pressure is 37. He remains on assist control mode at a rate of 36, tidal volumes of 380, FiO2 is currently at 100% and a PEEP is back up to 24. The blood gases from today shows a pH of 7.09 with a pCO2 of 94 and pO2 of 70. Chest x-ray showing diffuse bilateral pulmonary infiltrates and addition to subcutaneous emphysema which has gotten worse since yesterday. On examination, he does have emphysema subcutaneously throughout his chest and neck area. No evidence of any pneumothorax. The patient's hemodynamically still requiring pressors. He is currently on norepinephrine running at 0.5 Kingsley respiratory kilogram per minute. Vasopressin be also started. His hypotension is probably septic in nature as the patient was also found to have staph aureus in his sputum. The patient is currently on a combination of Zyvox and Zosyn. He is started on a bicarb infusion knowing that he has permissive hypercapnia and respiratory acidosis. He has required several doses of bicarb yesterday and the patient is currently on a bicarb infusion with a total of 150 mEq of sodium bicarbonate running at 75 mL an hour. The potassium level today is at 5.8 and the patient is going to be attempted for another session of hemodialysis today. In terms of his blood work, the white cell count is currently at 30.3 with a hemoglobin of 13.2. His d-dimer is at 3.3. His inflammatory markers from yesterday were improving. His LDH level was 2271 and his CRP level was at 58. Electrolytes from today show a sodium of 136, BUN of 46 with a creatinine of 8.01. Blood sugar is at 143. His cardiac rhythm is still sinus tachycardia. He continues to receive Nepro at the rate of 40 mL an hour. Condition of his distal highly critical. He is running fever still. The despite his ongoing broad-spectrum antibiotic coverage. 08/25/2021, the patient is still very difficult. A 36-year-old male patient with post COVID 19 related pneumonia and ARDS remains on a mechanical ventilator. He remains sedated and paralyzed. I have a medical examination of propofol and fentanyl probably was running at 40 Kingsley respiratory kilogram per minute and fentanyl is running at 1.5 Kingsley respiratory kilogram per hour and the patient is also fully paralyzed on Nimbex. For now, the patient is still on a mechanical ventilator. I did try to do some adjustments to lower his PEEP and I was not successful. He remains essentially the same and ventilator settings. On today's evaluation, he is on a tidal volume of 3 80 mL and his PEEP is currently at 24 with a rate of 36 and FiO2 of 100%. His peak airway pressures 42. His static pressure is 37. His blood gases showing a pH of 7.1 with a pCO2 of 91 and pO2 of 60. His follow-up chest x-ray continues to show subcu venous emphysema bilaterally. ET tube was pushed in around a centimeter and the tip of the ET tube is seen around 2 cm above the prabhjot. He does have bilateral pulmonary infiltrates with worsening consolidation of the right lower base. His sputum culture was positive for staph aureus. The patient accordingly was covered with antibiotics and the patient is currently on IV Zosyn and Zyvox. In terms of his fever pattern, he is still running episodic fever with a temperature of 100.1. He remains on pressors and norepinephrine infusion is running at 0.47 Kingsley respiratory kilogram per minute. Note that we attempt to wean off his pressors yesterday and was difficult due to hypotension. He is currently on a slightly lower dose of norepinephrine infusion today compared to yesterday. His white cell count remains elevated at 28.1. Blood cultures of been negative. On a separate note, his LDH level is down to 1407, his CRP level is down to 20.3. LFTs are normal. He underwent hemodialysis yesterday. No ultrafiltration was done. This was done mainly to control his hyperkalemia. He received several bicarb pushes and he is also on a bicarb infusion. His current potassium level is at 5.4. His serum bicarbs a 24 and currently the patient a bicarb infusion which is running at the rate of 75 mL an hour. Urine output is 0 at this point in time. He has developed increased edema in all 4 extremities. Is a well-developed subcutaneous emphysema over the chest and neck area. The patient is currently on Nepro of at the rate of 40 mL an hour. Cardiac rhythm is sinus tachycardia 08/26/21, patient remains intubated and mechanically ventilated. Patient was on assist control rate of 36 tidal volume 380 FiO2 on the percent and PEEP of 24. As I was coming in to the ICU, patient coded, and he required CPR, required multiple amps of bicarb, he also received epinephrine, and went on to have CPR for about 4 minutes, there was return of spontaneous circulation. Then shortly after we had to go back on the chest for loss of pulse and ventricular tachycardia requiring 1 shock. Patient was noted to have profound hypoxemia on his ABG, severe metabolic acidosis and respiratory acidosis. ABG earlier this morning showed a pO2 of 57 pCO2 of 93 pH of 7. 10 repeat ABG shortly after CPR 2 and shocking, showed a pO2 of 31 pCO2 of 118 pH of 6.95. Chest x-ray showed no evidence of pneumothorax, there was clearly evidence of diffuse infiltrates bilaterally. In the meantime the patient received more bicarb, received more calcium gluconate, and his potassium was noted to be 6.7. Discussed his condition with his and his mother at bedside, and explained to the family that his condition is futile, and it is impossible to bring her back. And I suggested that this is a medical futility situation, and best to stop doing more CPR. And let him go in peace and comfort. Shortly after the patient developed hypotension, bradycardia, and went into asystole. No further coding was done. And the patient was pronounced . Family was very well aware even prior to all of this of his poor prognostic picture. All labs from today were reviewed, WBC count is 22.4 hemoglobin 11.6. Patient was maximized on norepinephrine he was also maximized on vasopressin, he was on bicarb drip, he was also on propofol, fentanyl, and on Nimbex. Objective - Vital Signs Vital signs: Vital Signs Temp 99.8 F H 08/26/21 08:00 Pulse 105 H 08/26/21 09:30 Resp 37 H 08/26/21 09:30 BP 156/143 11/15/21 11:00 Pulse Ox 34 L 08/26/21 09:30 Intake & Output 08/25/21 08/26/21 08/26/21 18:59 06:59 18:59 Intake Total 4096.396 3905.572 452.073 Output Total 0 0 0 Balance 4096.396 3905.572 452.073 Weight 165.1 kg 165.1 kg Intake: IV 1251 1506 378 ART line 36 36 3 Dextrose 5% in Water 1, 900 900 225 000 ml @ 100 mls/hr IV . [id number] RACHEL with Sodium Bicarb (1 Meq/ml) 150 ml Rx#:[id number] Sodium Chloride 0.9% 1, 315 570 150 000 ml @ 50 mls/hr IV . Q20H [facility] Rx#:[id number] Intake, IV Titration 2663.396 1843.572 32.073 Amount Cisatracurium 200 mg In 132.204 Sodium Chloride 0.9% 180 ml @ 1 MCG/KG/MIN 8.165 mls/hr IV .Q24H [facility] Rx#: [id number] Dextrose 5% in Water 100 100 ml @ 618 mls/hr IV .Q10M ONE with Amiodarone 150 mg Rx#:[id number] Linezolid 600 mg In 300 Dextrose/Water 1 300ml. bag @ 150 mls/hr IVPB Q12H [facility] Rx#:[id number] Norepinephrine 8 mg In 9918.325 4738.314 32.073 Sodium Chloride 0.9% 250 ml @ 0.05 MCG/KG/MIN 14. 513 mls/hr IV .[id number] [facility] Rx#:[id number] Piperacillin-Tazobactam 3 100 .375 gm In Sodium Chloride 0.9% 100 ml @ 25 mls/hr IVPB Q12HR [facility] Rx #:[id number] fentaNYL (PF) 2,500 mcg 171.477 In Sodium Chloride 0.9% 200 ml @ 1.5 MCG/KG/HR 21 .39 mls/hr IV .[id number] [facility] Rx#:[id number] propofoL 1,000 mg In 400 387.258 Empty Bag 1 bag @ Titrate IV .Q0M [facility] Rx#: [id number] Tube Feeding 182 196 42 Other 360 Output: Urine 0 0 0 Hemodialysis 0 Other: Voiding Method Indwelling Catheter Indwelling Catheter Indwelling Catheter ABP, PAP, CO, CI - Last Documented Arterial Blood Pressure 116/59 - Exam Physical Exam: Revealed 36-year-old white male intubated mechanically ventilated, and as I walked into the room, CPR was in progress. Head: Atraumatic, normocephalic. However the patient's face looks cyanotic. HEENT:[Neck is supple.] [No neck masses.] [No thyromegaly.] [No JVD.] Endotracheal tube and orogastric tube noted intact. Chest: Apical chest expansion, crackles at the bases bilaterally, no evidence of subcu emphysema. Cardiac Exam: Stent a sore S2, no S3 gallop, no murmur. Abdomen: [Wheeze, Soft, nontender, no megaly, no rebound, no guarding, normal bowel sounds.] Extremities: 1+ bipedal edema, patient is cyanotic, diminished distal pulses bilaterally. Neurological Exam: Not be assessed, patient is sedated and paralyzed. Psychiatric: Could not be assessed. - Labs CBC & Chem 7: 08/26/21 09:30 08/26/21 09:30 Labs: Abnormal Lab Results - Last 24 Hours (Table) 08/25/21 08/25/21 08/25/21 Range/Units 11:16 17:37 23:57 WBC (3.8-10.6) k/uL RBC (4.30-5.90) m/uL Hgb (13.0-17.5) gm/dL Hct (39.0-53.0) % MCV (80.0-100.0) fL Neutrophils # (Manual) (1.3-7.7) k/uL Lymphocytes # (Manual) (1.0-4.8) k/uL Monocytes # (Manual) (0-1.0) k/uL Metamyelocytes # (Man) (0) k/uL Myelocytes # (Manual) (0) k/uL Nucleated RBCs (0-0) /100 WBC D-Dimer (<0.60) mg/L FEU ABG pH (7.35-7.45) ABG pCO2 (35-45) mmHg ABG pO2 (83-108) mmHg ABG HCO3 (21-25) mmol/L ABG Total CO2 (19-24) mmol/L ABG O2 Saturation (94-97) % Potassium (3.5-5.1) mmol/L BUN (9-20) mg/dL Creatinine (0.66-1.25) mg/dL Glucose (74-99) mg/dL POC Glucose (mg/dL) 225 H 183 H 200 H (75-99) mg/dL Calcium (8.4-10.2) mg/dL AST (17-59) U/L ALT (4-49) U/L Total Protein (6.3-8.2) g/dL Albumin (3.5-5.0) g/dL 08/26/21 08/26/21 08/26/21 Range/Units 05:00 05:00 05:31 WBC 23.9 H (3.8-10.6) k/uL RBC 3.75 L (4.30-5.90) m/uL Hgb 11.9 L (13.0-17.5) gm/dL Hct 37.9 L (39.0-53.0) % MCV 101.1 H (80.0-100.0) fL Neutrophils # (Manual) 20.30 H (1.3-7.7) k/uL Lymphocytes # (Manual) 0.48 L (1.0-4.8) k/uL Monocytes # (Manual) 2.87 H (0-1.0) k/uL Metamyelocytes # (Man) (0) k/uL Myelocytes # (Manual) 0.24 H (0) k/uL Nucleated RBCs 2 H (0-0) /100 WBC D-Dimer (<0.60) mg/L FEU ABG pH 7.10 L* (7.35-7.45) ABG pCO2 93 H* (35-45) mmHg ABG pO2 57 L* (83-108) mmHg ABG HCO3 29 H (21-25) mmol/L ABG Total CO2 32 H (19-24) mmol/L ABG O2 Saturation 84.4 L (94-97) % Potassium (3.5-5.1) mmol/L BUN 43 H (9-20) mg/dL Creatinine 6.59 H (0.66-1.25) mg/dL Glucose 217 H (74-99) mg/dL POC Glucose (mg/dL) (75-99) mg/dL Calcium 7.4 L (8.4-10.2) mg/dL AST (17-59) U/L ALT (4-49) U/L Total Protein (6.3-8.2) g/dL Albumin (3.5-5.0) g/dL 08/26/21 08/26/21 08/26/21 Range/Units 05:34 08:58 09:26 WBC (3.8-10.6) k/uL RBC (4.30-5.90) m/uL Hgb (13.0-17.5) gm/dL Hct (39.0-53.0) % MCV (80.0-100.0) fL Neutrophils # (Manual) (1.3-7.7) k/uL Lymphocytes # (Manual) (1.0-4.8) k/uL Monocytes # (Manual) (0-1.0) k/uL Metamyelocytes # (Man) (0) k/uL Myelocytes # (Manual) (0) k/uL Nucleated RBCs (0-0) /100 WBC D-Dimer (<0.60) mg/L FEU ABG pH 7.02 L* 6.95 L* (7.35-7.45) ABG pCO2 93 H* 118 H* (35-45) mmHg ABG pO2 42 L* 31 L* (83-108) mmHg ABG HCO3 26 H (21-25) mmol/L ABG Total CO2 27 H 29 H (19-24) mmol/L ABG O2 Saturation 63.8 L 40.7 L (94-97) % Potassium (3.5-5.1) mmol/L BUN (9-20) mg/dL Creatinine (0.66-1.25) mg/dL Glucose (74-99) mg/dL POC Glucose (mg/dL) 215 H (75-99) mg/dL Calcium (8.4-10.2) mg/dL AST (17-59) U/L ALT (4-49) U/L Total Protein (6.3-8.2) g/dL Albumin (3.5-5.0) g/dL 11/08/26/21 08/26/21 Range/Units 09:30 09:30 09:30 WBC 22.4 H (3.8-10.6) k/uL RBC 3.64 L (4.30-5.90) m/uL Hgb 11.6 L (13.0-17.5) gm/dL Hct 36.8 L (39.0-53.0) % MCV 101.2 H (80.0-100.0) fL Neutrophils # (Manual) 18.80 H (1.3-7.7) k/uL Lymphocytes # (Manual) (1.0-4.8) k/uL Monocytes # (Manual) 1.12 H (0-1.0) k/uL Metamyelocytes # (Man) 0.67 H (0) k/uL Myelocytes # (Manual) 0.67 H (0) k/uL Nucleated RBCs 2 H (0-0) /100 WBC D-Dimer 3.95 H (<0.60) mg/L FEU ABG pH (7.35-7.45) ABG pCO2 (35-45) mmHg ABG pO2 (83-108) mmHg ABG HCO3 (21-25) mmol/L ABG Total CO2 (19-24) mmol/L ABG O2 Saturation (94-97) % Potassium 6.7 H* (3.5-5.1) mmol/L BUN 43 H (9-20) mg/dL Creatinine 6.60 H (0.66-1.25) mg/dL Glucose 178 H (74-99) mg/dL POC Glucose (mg/dL) (75-99) mg/dL Calcium (8.4-10.2) mg/dL AST 319 H (17-59) U/L ALT 170 H (4-49) U/L Total Protein 5.0 L (6.3-8.2) g/dL Albumin 2.3 L (3.5-5.0) g/dL Microbiology - Last 24 Hours (Table) 08/20/21 23:00 Blood Culture - Preliminary Blood No Growth after 120 hours 08/21/21 22:22 Gram Stain - Final Sputum Sputum Culture - Final Staphylococcus aureus Assessment and Plan Assessment: Acute hypoxic respiratory failure secondary to COVID-19 pneumonia, and ARDS. Cardiac arrest secondary to profound hypoxia, severe metabolic and respiratory acidosis, hyperkalemia, and acute renal failure/kidney injury secondary to COVID-19 infection. Elevated inflammatory markers secondary to above. Elevated pro calcitonin suggestive of underlying bacterial infection Sepsis with underlying hypotension and leukocytosis. With acute septic shock. Permissive hypercapnia and respiratory acidosis. Hyperkalemia secondary to profound severe acidosis. Metabolic and respiratory at the same time. Acute kidney injury/renal failure requiring hemodialysis. Obesity with BMI of 42.6. Recommendation: Please refer to documentation related to CPR and spare ACLS protocol. Chest x-ray was reviewed, there was no evidence of pneumothorax, there was evidence of bilateral infiltrates and ARDS. Discussed status with the family and explained to the family that his condition is extremely poor, and basically futile. No further CPR is recommended, and family was made aware. Patient passed shortly after his initial CPR. Critical care time is over 40 minutes. Time with Patient: Greater than 30
--- NOTE | 2021-08-26 21:51 | DS ---
DISCHARGE SUMMARY PRELIMINARY CAUSE OF : Acute COVID-19 infection with acute COVID-19 bilateral interstitial pneumonia with acute hypoxic respiratory failure, present on admission. OTHER DIAGNOSES: 1. On mechanical ventilation. 2. Hypovolemic hyponatremia. 3. Possible sepsis with hypotension and severe sepsis and septic shock secondary to COVID-19 possibly. 4. Possible gastrointestinal involvement of COVID-19. 5. Elevated inflammatory markers of COVID-19 infection. 6. Obesity with body mass index of 40.7. 7. Elevated D-dimer without any evidence of deep vein thrombosis. 8. Elevated AST ALT, transaminitis secondary to COVID-19. 9. Elevated CRP, LDH secondary to COVID-19. HISTORY OF PRESENT ILLNESS: This 36-year-old gentleman with a past medical history of multiple medical problems was being followed by Dr. Rishi Nascimento in the outpatient setting. He was admitted with acute COVID-19 infection with acute COVID-19 bilateral interstitial pneumonia. The patient has severely hypoxic with shortness of breath, present on admission. Patient required 15 L of oxygen. However, the patient was initially tolerating BiPAP. Subsequently the patient took a turn for the worse and the patient was transferred to ICU and was monitored closely. Patient was mechanically intubated, but the patient's condition progressively deteriorated and he succumbed to COVID-19 and the above- mentioned multiple complex medical issues. The white count was elevated at 22.4, hemoglobin was 11.6. Patient was closely followed by Dr. Veliz, Dr. Cortez as well as Dr. Nicholson. Please refer to their dictation for further details. MMODL / IJN: [id number] /
--- NOTE | 2021-08-30 10:57 | CDI ---
Documentation Clarification Form Date: 08/30/2021 10:39:17 AM From: Toshia Berry RN, CCDS Email: [email or web address] Admit Date: 08/15/2021 06:26:00 PM Patient Name: Willie Carlisle Visit Number: [id number] Discharge Date: 08/26/2021 01:51:00 PM ATTENTION: The Clinical Documentation Specialists (CDI) and [facility] Coding Staff appreciate your assistance in clarifying documentation. Please respond to the clarification below the line at the bottom and electronically sign. The CDI & [facility] Coding staff will review the response and follow-up if needed. Please note: Queries are made part of the Legal Health Record. If you have any questions, please contact the author of this message via ITS. Dr. Juanjo Cortez Subcutaneous emphysema is documented in the progress notes and the patient was mechanically ventilated. Additional clarification is requested. Patients Admitting Diagnosis: Covid-19 pneumonia. Acute hypoxic respiratory failure that developed into ARDS History/Risk Factors: Morbid obesity, Covid-19 pneumonia, acute hypoxic respiratory developed into ARDS, intubation/mechanical ventilation on 08/20 Clinical Indicators: 08/22 CXR: New extensive subcutaneous emphysema and new pneumomediastinum 08/22 progress note: Evidence of subcutaneous emphysema over the anterior chest 08/23 CXR: Severe bilateral subcutaneous emphysema persists. 08/23 progress note: The patient also has developed subcutaneous emphysema and pneumomediastinum. His chest x-ray showed diffuse bilateral pulmonary infiltrates and there was worsening of the subcutaneous emphysema which is essentially a sign of barotrauma. On examination, he has developed some subcutaneous emphysema along the neck and the chest and abdominal wall. 08/24 progress note: Chest x-ray showing diffuse bilateral pulmonary infiltrates and addition to subcutaneous emphysema which has gotten worse since yesterday. On examination, he does have emphysema subcutaneously throughout his chest and neck area. 08/25 progress note: Peak and static pressures are quite elevated and the patient has developed no mediastinum and subcutaneous emphysema. There is evidence of barotrauma with some subcutaneous emphysema yet stable compared to yesterday. Chest x-ray was noted. There is a super infection with staph aureus and the patient is on a combination of Zyvox and Zosyn. Treatment: from 08/25 progress note: Oxygenation has improved and the patient currently is on a 24-hour PEEP with an FiO2 of 100% and an inspiratory close of 0.2 seconds. Chest x-ray was noted. Blood gases was noted. No significant changes on his ventilator setting. The patient will be kept on a PEEP of 24 with an FiO2 of 100%. What relationship, if any, exists between the diagnosis of subcutaneous emphysema and the mechanical ventilation: [ ] SC emphysema is a complication of mechanical ventilation [ ] SC emphysema was an expected and unavoidable outcome of mechanical ventilation [x ] SC emphysema is related to patients co-morbid conditions and not a complication of mechanical ventilation [ ] Other please specify ____ [ ] Unable to determine (Template Last Revised: December 2020) MTDD
== END 2021-08-26 13:51 | disposition expired | DRG 870 ==
LOC: EC 15:09 → 4SSUR 18:26 → 2SICU 08-20 15:17
PROVIDERS: ADMIT Hospitalist; ATTEND Hospitalist
PROC: XW033E5 Introduction of Remdesivir Anti-infective into Peripheral Vein, Percutaneous Approach, New Technology Group 5 (ICD-10-PCS; 2021-08-15)
PROC: 8E0ZXY6 Isolation (ICD-10-PCS; 2021-08-15)
PROC: 3E0333Z Introduction of Anti-inflammatory into Peripheral Vein, Percutaneous Approach (ICD-10-PCS; 2021-08-15)
PROC: 5A1D70Z Performance of Urinary Filtration, Intermittent, Less than 6 Hours Per Day (ICD-10-PCS; 2021-08-15)
PROC: XW0DXM6 Introduction of Baricitinib into Mouth and Pharynx, External Approach, New Technology Group 6 (ICD-10-PCS; 2021-08-16)
PROC: 5A09457 Assistance with Respiratory Ventilation, 24-96 Consecutive Hours, Continuous Positive Airway Pressure (ICD-10-PCS; 2021-08-19)
PROC: 5A1955Z Respiratory Ventilation, Greater than 96 Consecutive Hours (ICD-10-PCS; principal; 2021-08-20)
PROC: 0BH17EZ Insertion of Endotracheal Airway into Trachea, Via Natural or Artificial Opening (ICD-10-PCS; 2021-08-20)
PROC: 03HY32Z Insertion of Monitoring Device into Upper Artery, Percutaneous Approach (ICD-10-PCS; 2021-08-20)
PROC: 4A133B1 Monitoring of Arterial Pressure, Peripheral, Percutaneous Approach (ICD-10-PCS; 2021-08-20)
PROC: 4A133J1 Monitoring of Arterial Pulse, Peripheral, Percutaneous Approach (ICD-10-PCS; 2021-08-20)
PROC: 02HV33Z Insertion of Infusion Device into Superior Vena Cava, Percutaneous Approach (ICD-10-PCS; 2021-08-20)
PROC: 06HM33Z Insertion of Infusion Device into Right Femoral Vein, Percutaneous Approach (ICD-10-PCS; 2021-08-22)
PROC: 3E033XZ Introduction of Vasopressor into Peripheral Vein, Percutaneous Approach (ICD-10-PCS; 2021-08-26)
DX: A41.89 Other specified sepsis (principal); U07.1 COVID-19; G93.41 Metabolic encephalopathy; J12.82 Pneumonia due to coronavirus disease 2019; J80 Acute respiratory distress syndrome; N17.0 Acute kidney failure with tubular necrosis; R65.21 Severe sepsis with septic shock; J15.211 Pneumonia due to Methicillin susceptible Staphylococcus aureus; E46 Unspecified protein-calorie malnutrition; Z68.41 Body mass index [BMI] 40.0-44.9, adult; E87.1 Hypo-osmolality and hyponatremia; E87.4 Mixed disorder of acid-base balance; I47.1 Supraventricular tachycardia; I47.2 Ventricular tachycardia; T79.7XXA Traumatic subcutaneous emphysema, initial encounter; T82.41XA Breakdown (mechanical) of vascular dialysis catheter, initial encounter; E66.9 Obesity, unspecified; E83.39 Other disorders of phosphorus metabolism; E86.1 Hypovolemia; E87.5 Hyperkalemia; E87.8 Other disorders of electrolyte and fluid balance, not elsewhere classified; I46.9 Cardiac arrest, cause unspecified; I48.91 Unspecified atrial fibrillation; Z78.9 Other specified health status; Z79.899 Other long term (current) drug therapy
CPT/HCPCS: 36415; 71045; 80048; 80053; 82550; 82728; 82805; 83605; 83615; 83735; 83880; 84100; 84132; 84145; 84484; 85025; 85027; 85379; 85610; 85730; 86140; 86704; 86706; 87040; 87070; 87077; 87186; 87205; 87324; 87340; 87635; 90935; 92950; 93005; 93970; 94002; 94003; 94640; 94660; 94760; 99291